=== PATIENT | female | born 1950 | race Caucasian/White ===

== ENCOUNTER → 2017-10-11 10:35 | Outpatient (CLI) | payer MEDICARE, OTHER, SELFPAY ==
[2017-10-11 12:51] LABS: Free T3 3.5 pg/mL (2.18-3.98); Thyroid Stim Hormone (TSH) 1.25 uIU/mL (0.358-3.74)
[2017-10-15 13:58] LABS: HPV Reflexed? NOT INDICATED
== END ==
PROVIDERS: Family Provider Internal Medicine; PCP Internal Medicine; Visit Provider Obstetrics & Gynecology
DX: Z12.4 Encounter for screening for malignant neoplasm of cervix (principal); Z12.72 Encounter for screening for malignant neoplasm of vagina; L65.9 Nonscarring hair loss, unspecified
CPT/HCPCS: 36415; 84439; 84443; 84481; 88175; G0145

== ENCOUNTER → 2017-11-06 12:17 | Outpatient (CLI) | payer MEDICARE, OTHER, SELFPAY ==
--- NOTE | 2017-11-06 12:21 | HPBD_ITS ---
STUDY: DUAL ENERGY X-RAY ABSORPTIOMETRY / DXA REASON FOR EXAM: Female, 67 years old. The patient is postmenopausal. Loss of height. TECHNIQUE: Bone Mineral Density (BMD) measurements of lumbar spine and bilateral hips were obtained. COMPARISON: None. FINDINGS: Lumbar Spine (L1-L4): g/cm2 (1.097) / T-score (-0.9) / Z-score (0.8) Findings are suggestive of normal bone density with a low fracture risk. Left Femur Total: g/cm2 (1.015) / T-score (0.1) / Z-score (1.4) Left Femoral Neck: g/cm2 (1.082) / T-score (0.3) / Z-score (1.9) Right Femur Total: g/cm2 (0.889) / T-score (-0.9) / Z-score (0.4) Right Femoral Neck: g/cm2 (0.997) / T-score (-0.3) / Z-score (1.3) HPBD/Dexa Bone Density Study (HP) IMPRESSION: The patient is considered normal as outlined below according to World [place] [employer] Organization (WHO) criteria with a low fracture risk. Reference Information: The T-score is the number of standard deviations above or below the standard which is normal for young adults at their peak bone mineral density. The World Health Organization (WHO) interprets the T-scores as follows: Above -1 Normal bone density Between -1 and -2.5 Osteopenia Equal to / or below -2.5 Osteoporosis As a practical clinical guideline, osteopenia may be graded as follows: Mild -1 through -1.5 Moderate -1.6 through -2.0 Severe -2.1 through -2.4 The Z-score is the number of standard deviations above or below age-matched controls. A Z-score of less than -1.5 would be considered abnormal. References: 1. NIH Osteoporosis and Related Bone Diseases http://www.osteo.org 2. International Society for Clinical Densitometry http://www.iscd.org 3. National Osteoporosis Foundation http://www.nof.org Electronically Signed: Zenon Erickson MD at 14:20 EDT Tel [phone], Service support ,
--- NOTE | 2017-11-06 12:21 | HPBI_ITS ---
MAMMOGRAPHY - BILATERAL SCREENING REASON FOR EXAM: Female, 67 years old. Routine annual screening examination. PERTINENT HISTORY: Non-contributory. TECHNIQUE: Digital bilateral breast tucker (3D mammographic acquisition) in the CC and MLO projections. 2-D mediolateral oblique (MLO) and craniocaudad (CC) views of both breasts were obtained. CAD: Full Field Digital Mammography with Computer Added Detection was performed. COMPARISON: Comparison is made with prior outside study dated March 18, 2012. FINDINGS: Breast Composition: The breasts are heterogeneously dense, which may obscure small masses. There are no dominant masses or suspicious calcifications. No other significant abnormalities are identified. There has been no significant change since the prior study. HPBI/SCREENING MAMM (CAD), BILAT IMPRESSION: Stable bilateral screening mammogram. Yearly follow-up mammogram recommended. (A) ASSESSMENT CATEGORY: BIRADS Category 1: Negative. A letter regarding these results will be sent to the patient by the facility within 30 days. Approximately 10% of breast cancers are not detected by mammography. A normal mammogram should not delay biopsy of a clinically suspicious abnormality. [id number] Electronically Signed: Zenon Erickson MD at 14:32 EDT Tel [phone], Service support ,
== END ==
PROVIDERS: Family Provider Internal Medicine; PCP Internal Medicine; Visit Provider Obstetrics & Gynecology
DX: Z12.31 Encounter for screening mammogram for malignant neoplasm of breast (principal); Z78.0 Asymptomatic menopausal state; Z13.820 Encounter for screening for osteoporosis
CPT/HCPCS: 77063; 77067; 77080

== ENCOUNTER → 2019-06-11 17:03 | Outpatient (CLI) | payer MEDICARE, OTHER, SELFPAY ==
[2017-07-22 19:45] VITALS: BMI 36.3
--- NOTE | 2019-06-11 17:27 | RAD_ITS ---
STUDY: X-RAY - CERVICAL SPINE REASON FOR EXAM: Female, 68 years old. Pain. TECHNIQUE: 3 view(s) of the cervical spine were obtained. COMPARISON: None FINDINGS: There are degenerative changes of the anterior atlantoaxial articulation. Normal odontoid process. There is mild straightening of the normal cervical lordosis. There is multi-level endplate spondylosis. There is multi-level degenerative disc disease with multilevel disc space narrowing. There is multilevel bilateral apophyseal hypertrophic changes. The soft tissue structures are unremarkable. There is no demonstrated fracture of the cervical spine. RAD/Cerv Spine 2 or 3 Views IMPRESSION: Multilevel spondylosis/degenerative disease with no acute fracture or subluxation. Mild straightening of the physiological cervical lordosis, most likely due to underlying degenerative arthritis or muscle spasm. Electronically Signed: Selma Chung MD at 2:53 EDT , Service support ,
[2019-06-11 17:44] LABS: Absolute Lymphocyte Count 1.53 X10^3/uL (0.83-4.51); Absolute Neutrophil Count 3.3 X10^3/uL (2.0-7.7); Basophil# 0.03 X10^3/uL; Basophil% 0.5 % (0-1); Eosinophil# 0.11 X10^3/uL; Hematocrit 40.9 % (37-47); Hemoglobin 13.1 g/dL (12.0-15.0); Lymphocyte # 1.53 X10^3/ul (4.0); Lymphocyte % 27.6 % (19-41); Mean Corpuscular Hgb 30.2 pg (27.0-32.0); Mean Corpuscular Volume 94.2 fL (81-99); Mean Platelet Vol. 10.6 fl (6.2-12.0); Monocyte# 0.57 X10^3/uL; Monocyte% 10.3 % (0-10); NRBC Flagged by Analyzer 0 % (0-5); Neutrophil # 3.29 X10^3/uL (2.7-7.7); Neutrophil % 59.4 % (47-70); Platelet Count 216 K/mm3 (150-450); RBC Distribution Width CV 12.9 % (11.6-14.6); RBC Distribution Width SD 44.6 fl (35.1-43.9); Red Blood Count 4.34 M/mm3 (4.2-5.4); White Blood Count 5.5 K/mm3 (4.4-11.0)
[2019-06-11 18:19] LABS: ALB/GLOB Ratio 0.9 RATIO (0.9-2.4); AST(SGOT) 18 U/L (15-37); Alanine Aminotransfer ALT/SGPT 22 U/L (13-56); Albumin, Serum 3.6 g/dL (3.2-5.0); Alkaline Phosphatase 90 U/L (45-117); Anion Gap 3 (5-15); BUN 14 mg/dL (7-18); BUN/Creat Ratio 18.9 RATIO (10-20); Chloride 106 mmol/L (98-107); Creatinine, Serum 0.74 mg/dL (0.55-1.02); EST Glomerular Filtration Rate 83 mL/min (>60); Est Glom Filt Rate - Afr Amer 100 mL/min (>60); Globulin 4.2 g/dL (2.2-4.2); Glucose 88 mg/dL (74-106); Potassium 4.2 mmol/L (3.5-5.1); Protein, Total 7.8 g/dL (6.4-8.2); Sodium Level 139 mmol/L (136-145); Thyroid Stim Hormone (TSH) 0.81 uIU/mL (0.358-3.74)
[2019-06-12 10:19] LABS: Hepatitis C Antibody Non-Reactive (Nonreactive)
== END ==
PROVIDERS: Family Provider Family Medicine Geriatric Medicine; PCP Family Medicine Geriatric Medicine; Referring Provider Family Medicine Geriatric Medicine; Visit Provider Family Medicine Geriatric Medicine
DX: M54.2 Cervicalgia (principal); R53.83 Other fatigue; Z13.89 Encounter for screening for other disorder
CPT/HCPCS: 36415; 72040; 80053; 84443; 85025; 86803

== ENCOUNTER → 2019-07-03 08:48 | Outpatient (CLI) | payer MEDICARE, OTHER, SELFPAY ==
--- NOTE | 2019-07-03 08:51 | BI_ITS ---
MAMMOGRAPHY - BILATERAL SCREENING REASON FOR EXAM: Female, 68 years old. Routine annual screening examination. PERTINENT HISTORY: Non-contributory. TECHNIQUE: Digital bilateral breast beatriz (3D mammographic acquisition) in the CC and MLO projections. 2-D mediolateral oblique (MLO) and craniocaudad (CC) views of both breasts were obtained. CAD: Full Field Digital Mammography with Computer Added Detection was performed. COMPARISON: Comparison is made with prior examination November 06, 2017. FINDINGS: Breast Composition: The breasts are heterogeneously dense, which may obscure small masses. There are no dominant masses or suspicious calcifications. No other significant abnormalities are identified. There has been no significant change since the prior study. BI/SCREEN MAMM (CAD) W/BEATRIZ BILAT IMPRESSION: Stable bilateral screening mammogram. Yearly follow-up mammogram recommended. (A) ASSESSMENT CATEGORY: BIRADS Category 1: Negative. A letter regarding these results will be sent to the patient by the facility within 30 days. Approximately 10% of breast cancers are not detected by mammography. A normal mammogram should not delay biopsy of a clinically suspicious abnormality. [id number] Electronically Signed: Zenon Erickson, at 9:54 EST , Service support ,
== END ==
PROVIDERS: Family Provider Family Medicine Geriatric Medicine; PCP Family Medicine Geriatric Medicine; Referring Provider Family Medicine Geriatric Medicine; Visit Provider Family Medicine Geriatric Medicine
DX: Z12.31 Encounter for screening mammogram for malignant neoplasm of breast (principal)
CPT/HCPCS: 77063; 77067

== ENCOUNTER → 2020-01-01 15:11 | Outpatient (CLI) | payer MEDICARE, OTHER, SELFPAY ==
[2017-07-22 19:45] VITALS: BMI 36.3
[2020-01-01 16:27] LABS: Absolute Lymphocyte Count 1.59 X10^3/uL (0.83-4.51); Absolute Neutrophil Count 2.6 X10^3/uL (2.0-7.7); Basophil# 0.04 X10^3/uL; Basophil% 0.8 % (0-1); Eosinophil# 0.13 X10^3/uL; Eosinophils% 2.6 % (0-5); Hematocrit 40.3 % (37-47); Hemoglobin 12.8 g/dL (12.0-15.0); Lymphocyte # 1.59 X10^3/ul (4.0); Lymphocyte % 31.7 % (19-41); Mean Corp Hgb Conc 31.8 g/dL (32-36); Mean Corpuscular Hgb 30.3 pg (27.0-32.0); Mean Corpuscular Volume 95.5 fL (81-99); Mean Platelet Vol. 10.7 fl (6.2-12.0); Monocyte# 0.63 X10^3/uL; Monocyte% 12.6 % (0-10); NRBC Flagged by Analyzer 0 % (0-5); Neutrophil # 2.61 X10^3/uL (2.7-7.7); Neutrophil % 52.1 % (47-70); Platelet Count 232 K/mm3 (150-450); RBC Distribution Width CV 13.2 % (11.6-14.6); RBC Distribution Width SD 46.3 fl (35.1-43.9); Red Blood Count 4.22 M/mm3 (4.2-5.4)
[2020-01-01 16:38] LABS: Vitamin D,25 Hydroxy 36.7 ng/mL
[2020-01-01 16:48] LABS: ALB/GLOB Ratio 0.9 RATIO (0.9-2.4); AST(SGOT) 22 U/L (15-37); Alanine Aminotransfer ALT/SGPT 29 U/L (13-56); Albumin, Serum 3.5 g/dL (3.2-5.0); Alkaline Phosphatase 86 U/L (45-117); Anion Gap 8 (5-15); BUN 14 mg/dL (7-18); BUN/Creat Ratio 20.1 RATIO (10-20); Calcium,Total 9.2 mg/dL (8.5-10.1); Chloride 104 mmol/L (98-107); EST Glomerular Filtration Rate 89 mL/min (>60); Est Glom Filt Rate - Afr Amer 107 mL/min (>60); Globulin 4.1 g/dL (2.2-4.2); Glucose 91 mg/dL (74-106); Potassium 3.9 mmol/L (3.5-5.1); Protein, Total 7.6 g/dL (6.4-8.2); Sodium Level 140 mmol/L (136-145); Thyroid Stim Hormone (TSH) 0.89 uIU/mL (0.358-3.74)
== END ==
PROVIDERS: PCP Family Medicine Geriatric Medicine; Visit Provider Family Medicine Geriatric Medicine
DX: E55.9 Vitamin D deficiency, unspecified (principal); R53.83 Other fatigue
CPT/HCPCS: 36415; 80053; 82306; 84443; 85025

== ENCOUNTER → 2020-09-09 07:16 | Outpatient (CLI) | payer MEDICARE, OTHER, SELFPAY ==
--- NOTE | 2020-09-09 07:19 | BI_ITS ---
MAMMOGRAPHY - BILATERAL SCREENING REASON FOR EXAM: Female, 69 years old. Routine annual screening examination. PERTINENT HISTORY: Non-contributory. TECHNIQUE: Digital bilateral breast beatriz (3D mammographic acquisition) in the CC and MLO projections. 2-D mediolateral oblique (MLO) and craniocaudad (CC) views of both breasts were obtained. CAD: Full Field Digital Mammography with Computer Added Detection was performed. COMPARISON: Comparison is made with prior study dated 07/03/2019 and 11/06/2017. FINDINGS: Breast Composition: The breasts are heterogeneously dense, which may obscure small masses. There are no dominant masses or suspicious calcifications. No other significant abnormalities are identified. There has been no significant change since the prior study. BI/SCRN MAMM (CAD)W/BEATRIZ BILAT IMPRESSION: Stable bilateral screening mammogram. Yearly follow-up mammogram recommended. (A) ASSESSMENT CATEGORY: BIRADS Category 1: Negative. A letter regarding these results will be sent to the patient by the facility within 30 days. Approximately 10% of breast cancers are not detected by mammography. A normal mammogram should not delay biopsy of a clinically suspicious abnormality. [id number] Electronically Signed: Zenon Erickson MD at 8:29 EST , Service support ,
== END ==
PROVIDERS: PCP Family Medicine Geriatric Medicine; Referring Provider Family Medicine Geriatric Medicine; Visit Provider Family Medicine Geriatric Medicine
DX: Z12.31 Encounter for screening mammogram for malignant neoplasm of breast (principal)
CPT/HCPCS: 77063; 77067

== ENCOUNTER → 2020-09-17 08:38 | Outpatient (CLI) | payer MEDICARE, OTHER, SELFPAY ==
[2017-07-22 19:45] VITALS: BMI 36.3
[2020-09-17 11:50] LABS: Absolute Lymphocyte Count 1.23 X10^3/uL (0.83-4.51); Absolute Neutrophil Count 3.9 X10^3/uL (2.0-7.7); Basophil# 0.02 X10^3/uL; Basophil% 0.3 % (0-1); Eosinophil# 0.07 X10^3/uL; Eosinophils% 1.2 % (0-5); Hematocrit 41.3 % (37-47); Hemoglobin 13.3 g/dL (12.0-15.0); Lymphocyte # 1.23 X10^3/ul (4.0); Mean Corp Hgb Conc 32.2 g/dL (32-36); Mean Corpuscular Hgb 30.4 pg (27.0-32.0); Mean Corpuscular Volume 94.3 fL (81-99); Mean Platelet Vol. 10.3 fl (6.2-12.0); Monocyte# 0.59 X10^3/uL; Monocyte% 10.1 % (0-10); NRBC Flagged by Analyzer 0 % (0-5); Neutrophil # 3.91 X10^3/uL (2.7-7.7); Neutrophil % 66.9 % (47-70); Platelet Count 239 K/mm3 (150-450); RBC Distribution Width CV 12.6 % (11.6-14.6); RBC Distribution Width SD 44.1 fl (35.1-43.9); Red Blood Count 4.38 M/mm3 (4.2-5.4); White Blood Count 5.9 K/mm3 (4.4-11.0)
[2020-09-17 12:08] LABS: Vitamin D,25 Hydroxy 32.2 ng/mL
[2020-09-17 12:15] LABS: ALB/GLOB Ratio 0.9 RATIO (0.9-2.4); AST(SGOT) 16 U/L (15-37); Alanine Aminotransfer ALT/SGPT 24 U/L (13-56); Albumin, Serum 3.6 g/dL (3.2-5.0); Alkaline Phosphatase 92 U/L (45-117); Anion Gap 5 (5-15); BUN 12 mg/dL (7-18); Chloride 107 mmol/L (98-107); Creatinine, Serum 0.67 mg/dL (0.55-1.02); EST Glomerular Filtration Rate 93 mL/min (>60); Est Glom Filt Rate - Afr Amer 113 mL/min (>60); Globulin 4.1 g/dL (2.2-4.2); Glucose 91 mg/dL (74-106); Protein, Total 7.7 g/dL (6.4-8.2); Sodium Level 141 mmol/L (136-145); Thyroid Stim Hormone (TSH) 1.02 uIU/mL (0.358-3.74)
== END ==
PROVIDERS: PCP Family Medicine Geriatric Medicine; Visit Provider Family Medicine Geriatric Medicine
DX: E55.9 Vitamin D deficiency, unspecified (principal); R53.83 Other fatigue
CPT/HCPCS: 36415; 80053; 82306; 84443; 85025

== ENCOUNTER → 2020-09-28 08:03 | Outpatient (CLI) | payer MEDICARE, OTHER, SELFPAY ==
--- NOTE | 2020-09-28 08:18 | BD_ITS ---
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 COMPARISON: Comparison is made with prior study dated 11/06/2017. FINDINGS: Lumbar Spine (L1-L4): g/cm2 (0.810) / T-score (-3.0) / Z-score (-1.3) Findings are suggestive of osteoporosis with a high fracture risk. Left Femur Total: g/cm2 (0.891) / T-score (-0.9) / Z-score (0.5) Left Femoral Neck: g/cm2 (0.980) / T-score (-0.4) / Z-score (1.3) Right Femur Total: g/cm2 (0.904) / T-score (-0.8) / Z-score (0.6) Right Femoral Neck: g/cm2 (0.992) / T-score (-0.3) / Z-score (1.3) The T-Scores on the most recent prior examination were: Lumbar Spine (L1-L4): There has been worsening of bone density since the previous examination. Left Femur Total: which represents a worsening of 12.2%. Right Femur Total: which represents an improvement of 1.7%. BD/Dexa Bone Density Study IMPRESSION: The patient is considered osteoporotic as outlined below according to World [place] [employer] Organization (WHO) criteria with a high fracture risk. There has been worsening of bone density since the previous examination. Reference Information: The T-score is the number of standard deviations above or below the standard which is normal for young adults at their peak bone mineral density. The World Health Organization (WHO) interprets the T-scores as follows: Above -1 Normal bone density Between -1 and -2.5 Osteopenia Equal to / or below -2.5 Osteoporosis As a practical clinical guideline, osteopenia may be graded as follows: Mild -1 through -1.5 Moderate -1.6 through -2.0 Severe -2.1 through -2.4 The Z-score is the number of standard deviations above or below age-matched controls. A Z-score of less than -1.5 would be considered abnormal. References: 1. NIH Osteoporosis and Related Bone Diseases www osteo.org 2. International Society for Clinical Densitometry www iscd.org 3. National Osteoporosis Foundation www nof.org Electronically Signed: Zenon Erickson MD at 12:23 EST , Service support ,
== END ==
PROVIDERS: PCP Family Medicine Geriatric Medicine; Referring Provider Family Medicine Geriatric Medicine; Visit Provider Family Medicine Geriatric Medicine
DX: Z78.0 Asymptomatic menopausal state (principal)
CPT/HCPCS: 77080

== ENCOUNTER → 2021-05-05 09:33 | Outpatient (CLI) | payer MEDICARE, OTHER, SELFPAY ==
[2021-05-05 10:43] LABS: Absolute Lymphocyte Count 1.17 X10^3/uL (0.83-4.51); Absolute Neutrophil Count 2.2 X10^3/uL (2.0-7.7); Basophil# 0.03 X10^3/uL; Basophil% 0.8 % (0-1); Eosinophil# 0.06 X10^3/uL; Eosinophils% 1.5 % (0-5); Lymphocyte # 1.17 X10^3/ul (0.83-4.51); Lymphocyte % 30.1 % (19-41); Mean Corp Hgb Conc 31.7 g/dL (32-36); Mean Corpuscular Hgb 30.3 pg (27.0-32.0); Mean Corpuscular Volume 95.6 fL (81-99); Mean Platelet Vol. 10.9 fl (6.2-12.0); Monocyte# 0.42 X10^3/uL; Monocyte% 10.8 % (0-10); NRBC Flagged by Analyzer 0 % (0-5); Neutrophil % 56.5 % (47-70); Platelet Count 214 K/mm3 (150-450); RBC Distribution Width CV 13.2 % (11.6-14.6); RBC Distribution Width SD 46.4 fl (35.1-43.9); Red Blood Count 4.29 M/mm3 (4.2-5.4); White Blood Count 3.9 K/mm3 (4.4-11.0)
[2021-05-05 11:27] LABS: ALB/GLOB Ratio 0.8 RATIO (0.9-2.4); AST(SGOT) 18 U/L (15-37); Alanine Aminotransfer ALT/SGPT 25 U/L (13-56); Albumin, Serum 3.3 g/dL (3.2-5.0); Alkaline Phosphatase 90 U/L (45-117); Anion Gap 5 (5-15); BUN 9 mg/dL (7-18); BUN/Creat Ratio 13.8 RATIO (10-20); Calcium,Total 8.8 mg/dL (8.5-10.1); Chloride 107 mmol/L (98-107); Creatinine, Serum 0.65 mg/dL (0.55-1.02); EST Glomerular Filtration Rate 95 mL/min (>60); Est Glom Filt Rate - Afr Amer 115 mL/min (>60); Globulin 4.2 g/dL (2.2-4.2); Glucose 94 mg/dL (74-106); Potassium 3.8 mmol/L (3.5-5.1); Protein, Total 7.5 g/dL (6.4-8.2); Sodium Level 139 mmol/L (136-145); Thyroid Stim Hormone (TSH) 1.24 uIU/mL (0.358-3.74)
== END ==
PROVIDERS: PCP Family Medicine Geriatric Medicine; Referring Provider Family Medicine Geriatric Medicine; Visit Provider Family Medicine Geriatric Medicine
DX: E55.9 Vitamin D deficiency, unspecified (principal); R53.83 Other fatigue
CPT/HCPCS: 36415; 80053; 82306; 84443; 85025

== ENCOUNTER → 2021-05-09 12:57 | Outpatient (CLI) | payer MEDICARE, OTHER, SELFPAY ==
--- NOTE | 2021-05-09 12:59 | US_ITS ---
INDICATION: LIPOMA EXAMINATION: Right lower extremity soft tissue ultrasound. HISTORY: palpable lump TECHNIQUE: Routine lazcano scale imaging. FINDINGS: No discrete mass or fluid collection is visualized. There is a large amount of subcutaneous adipose tissue. US/Ext Non Vasc Limited/Soft Tiss IMPRESSION: Large amount of subcutaneous adipose tissue with no discrete mass visualized. If concern for liposarcoma, recommend MRI instead. Electronically Signed: Jaret Lubin MD at 23:54 EDT Tel , Service support ,
== END ==
PROVIDERS: PCP Family Medicine Geriatric Medicine; Referring Provider Family Medicine Geriatric Medicine; Visit Provider Family Medicine Geriatric Medicine
DX: D17.9 Benign lipomatous neoplasm, unspecified (principal)
CPT/HCPCS: 76882

== ENCOUNTER → 2021-05-28 08:31 | Outpatient (CLI) | payer MEDICARE, OTHER, SELFPAY ==
--- NOTE | 2021-05-28 08:45 | MRI_ITS ---
EXAM: MR RIGHT LOWER EXTREMITY WITHOUT INTRAVENOUS CONTRAST, KNEE CLINICAL INDICATION: LIPOMA MEDIAL POSTERIOR TECHNIQUE: Multiplanar and multisequence MR images of the right knee without intravenous contrast. This report was created using [employer] report generation technology. COMPARISON: Ultrasound 05/09/2021. FINDINGS: BONES/JOINTS: This study is nondiagnostic for evaluation of knee joint due to total knee replacement. MENISCI: Not visualized. ANTERIOR CRUCIATE LIGAMENT: Not visualized. POSTERIOR CRUCIATE LIGAMENT: Not visualized. MUSCLES: Unremarkable. No demonstrated mass or cystic lesion. CARTILAGE: Not visualized. FLUID: Joint space is not visualized. OTHER SOFT TISSUES: Marked subcutaneous fat, greater medially. There is no demonstrated soft tissue mass or collection. Specifically, no evidence of lipoma or liposarcoma. MRI/Lower Ext Joint Only (Routine) IMPRESSION: 1. Nondiagnostic study of the knee joint due to knee replacement. 2. No soft tissue mass. Electronically Signed: Camille Rao MD at 23:18 EDT Tel , Service support ,
== END ==
PROVIDERS: PCP Family Medicine Geriatric Medicine; Referring Provider Family Medicine Geriatric Medicine; Visit Provider Family Medicine Geriatric Medicine
DX: D17.9 Benign lipomatous neoplasm, unspecified (principal)
CPT/HCPCS: 73721

== ENCOUNTER → 2021-12-22 | Outpatient (CLI) | payer MEDICARE, OTHER, SELFPAY ==
--- NOTE | 2021-12-22 11:54 | RAD_ITS ---
STUDY: X-RAY - RIGHT WRIST REASON FOR EXAM: Female, 71 years old. Pain and swelling following a recent fall. TECHNIQUE: 3 view(s) of the wrist were obtained. COMPARISON: None. FINDINGS: Nondisplaced comminuted fracture of the distal radial metaphysis extending to the articular surface. Normal radiocarpal articulation. Normal distal radioulnar articulation. Normal carpal bones. Normal carpal articulations. There is degenerative arthrosis of the carpometacarpal articulation of the thumb. Normal second through fifth carpometacarpal articulations. Normal visualized metacarpal bones. Soft tissue swelling. RAD/Wrist min 3 Views IMPRESSION: There is a nondisplaced comminuted fracture of the distal radial metaphysis with extension to the articular surface. Soft tissue swelling. Electronically Signed: Zenon Erickson MD at 12:30 EDT ,
[2021-12-22 12:35] LABS: Absolute Lymphocyte Count 1.11 X10^3/uL (0.83-4.51); Absolute Neutrophil Count 3.1 X10^3/uL (2.0-7.7); Basophil# 0.02 X10^3/uL; Basophil% 0.4 % (0-1); Eosinophil# 0.05 X10^3/uL; Hemoglobin 13.2 g/dL (12.0-15.0); Lymphocyte # 1.11 X10^3/ul (0.83-4.51); Lymphocyte % 22.8 % (19-41); Mean Corpuscular Hgb 30.8 pg (27.0-32.0); Mean Corpuscular Volume 93.5 fL (81-99); Monocyte# 0.57 X10^3/uL; Monocyte% 11.7 % (0-10); NRBC Flagged by Analyzer 0 % (0-5); Neutrophil % 63.9 % (47-70); Platelet Count 220 K/mm3 (150-450); RBC Distribution Width CV 12.7 % (11.6-14.6); Red Blood Count 4.28 M/mm3 (4.2-5.4); White Blood Count 4.9 K/mm3 (4.4-11.0)
[2021-12-22 13:03] LABS: ALB/GLOB Ratio 0.8 RATIO (0.9-2.4); AST(SGOT) 21 U/L (15-37); Alanine Aminotransfer ALT/SGPT 23 U/L (13-56); Albumin, Serum 3.4 g/dL (3.2-5.0); Alkaline Phosphatase 97 U/L (45-117); Anion Gap 5 (5-15); BUN 15 mg/dL (7-18); BUN/Creat Ratio 23.2 RATIO (10-20); Calcium,Total 9.1 mg/dL (8.5-10.1); Chloride 106 mmol/L (98-107); Creatinine, Serum 0.65 mg/dL (0.55-1.02); EST Glomerular Filtration Rate 96 mL/min (>60); Est Glom Filt Rate - Afr Amer 116 mL/min (>60); Globulin 4.1 g/dL (2.2-4.2); Glucose 94 mg/dL (74-106); Potassium 3.8 mmol/L (3.5-5.1); Protein, Total 7.5 g/dL (6.4-8.2); Sodium Level 138 mmol/L (136-145)
[2021-12-22 13:16] LABS: Vitamin D,25 Hydroxy 49.7 ng/mL
== END | disposition home or self-care (01) ==
PROVIDERS: PCP Family Medicine Geriatric Medicine; Referring Provider Family Medicine Geriatric Medicine; Visit Provider Family Medicine Geriatric Medicine
DX: E55.9 Vitamin D deficiency, unspecified (principal); R53.83 Other fatigue; M25.531 Pain in right wrist
CPT/HCPCS: 36415; 73110; 80053; 82306; 84443; 85025

== ENCOUNTER → 2024-02-05 | Outpatient (CLI) | payer MEDICARE, OTHER, SELFPAY ==
[2024-02-05 13:01] LABS: Absolute Lymphocyte Count 1.38 X10^3/uL (0.83-4.51); Absolute Neutrophil Count 2.5 X10^3/uL (2.0-7.7); Basophil# 0.03 X10^3/uL; Basophil% 0.7 % (0-1); Eosinophil# 0.05 X10^3/uL; Eosinophils% 1.1 % (0-5); Hematocrit 39.2 % (37-47); Hemoglobin 12.5 g/dL (12.0-15.0); Lymphocyte # 1.38 X10^3/ul (0.83-4.51); Lymphocyte % 30.1 % (19-41); Mean Corp Hgb Conc 31.9 g/dL (32-36); Mean Corpuscular Volume 94.2 fL (81-99); Mean Platelet Vol. 11.3 fl (6.2-12.0); Monocyte# 0.58 X10^3/uL; Monocyte% 12.7 % (0-10); NRBC Flagged by Analyzer 0 % (0-5); Neutrophil # 2.53 X10^3/uL (2.7-7.7); Neutrophil % 55.2 % (47-70); Platelet Count 193 K/mm3 (150-450); RBC Distribution Width CV 12.7 % (11.6-14.6); RBC Distribution Width SD 43.7 fl (35.1-43.9); Red Blood Count 4.16 M/mm3 (4.2-5.4); White Blood Count 4.6 K/mm3 (4.4-11.0)
[2024-02-05 13:10] LABS: Vitamin D,25 Hydroxy 57.2 ng/mL
[2024-02-05 13:29] LABS: ALB/GLOB Ratio 0.8 RATIO (0.9-2.4); AST(SGOT) 19 U/L (15-37); Alanine Aminotransfer ALT/SGPT 18 U/L (13-56); Albumin, Serum 3.4 g/dL (3.2-5.0); Alkaline Phosphatase 93 U/L (45-117); Anion Gap 3 (5-15); BUN 17 mg/dL (7-18); BUN/Creat Ratio 25.6 RATIO (10-20); Calcium,Total 9.2 mg/dL (8.5-10.1); Chloride 105 mmol/L (98-107); Creatinine, Serum 0.66 mg/dL (0.55-1.02); EST Glomerular Filtration Rate 93 mL/min (>60); Est Glom Filt Rate - Afr Amer 112 mL/min (>60); Glucose 96 mg/dL (74-106); Potassium 3.8 mmol/L (3.5-5.1); Protein, Total 7.4 g/dL (6.4-8.2); Sodium Level 137 mmol/L (136-145); Thyroid Stim Hormone (TSH) 1.03 uIU/mL (0.358-3.74)
== END | disposition home or self-care (01) ==
LOC: LAB 12:05
PROVIDERS: PCP Family Medicine Geriatric Medicine; Referring Provider Family Medicine Geriatric Medicine; Visit Provider Family Medicine Geriatric Medicine
DX: R53.83 Other fatigue (principal); E55.9 Vitamin D deficiency, unspecified
CPT/HCPCS: 36415; 80053; 82306; 84443; 85025

== ENCOUNTER 2024-02-11 16:16 | Outpatient (CLI) | payer MEDICARE, OTHER, SELFPAY | END 2024-02-11 23:59 | disposition home or self-care (01) | LOC: LAB 16:25 | PROVIDERS: PCP Family Medicine Geriatric Medicine; Referring Provider Family Medicine Geriatric Medicine; Visit Provider Family Medicine Geriatric Medicine | DX: A69.20 Lyme disease, unspecified (principal); W57.XXXA Bitten or stung by nonvenomous insect and other nonvenomous arthropods, initial encounter | CPT/HCPCS: 36415; 86617 ==

== ENCOUNTER → 2024-02-26 | Outpatient (CLI) | payer MEDICARE, OTHER, SELFPAY ==
--- NOTE | 2024-02-26 12:47 | CT_ITS ---
STUDY: CT RIGHT KNEE WITHOUT CONTRAST REASON FOR EXAM: Female, 73 years old. Lipoma of right knee. History of total knee arthroplasty. RADIATION DOSAGE (If Supplied By Facility): CTDIvol = ( 15.35 ) mGy, DLP = ( 550.71 ) mGycm TECHNIQUE: Transaxial CT imaging of the knee was performed. Coronal and sagittal images were reformatted. Metallic artifact from the total knee arthroplasty obscures much of the detail of the knee. Individualized dose optimization techniques were used for this CT. COMPARISON: Ultrasound of the lower extremities dated May 09, 2021 FINDINGS: Marked metallic artifact from the 3 component total knee arthroplasty. Anatomic alignment of the total knee arthroplasty with no apparent complications. Generalized muscle atrophy. Normal subcutaneous soft tissue adipose tissue. Superficial varicosities No lipoma identified . CT/Extremity Lower without Contra IMPRESSION: Uncomplicated total knee arthroplasty with mild generalized muscle atrophy and superficial varicosities. No focal lipoma identified. Electronically Signed: Mohinder Sierra MD at 9:47 EDT ,
== END | disposition home or self-care (01) ==
LOC: CT 12:47
PROVIDERS: PCP Family Medicine Geriatric Medicine; Referring Provider Plastic Surgery; Visit Provider Plastic Surgery
DX: D48.19 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 other soft tissue (principal)
CPT/HCPCS: 73700

== ENCOUNTER → 2024-08-21 | Outpatient (CLI) | payer MEDICARE, OTHER, SELFPAY ==
[2024-08-21 11:21] LABS: Absolute Lymphocyte Count 1.33 X10^3/uL (0.83-4.51); Absolute Neutrophil Count 4.4 X10^3/uL (2.0-7.7); Basophil# 0.04 X10^3/uL; Basophil% 0.6 % (0-1); Eosinophil# 0.09 X10^3/uL; Eosinophils% 1.4 % (0-5); Hemoglobin 13.5 g/dL (12.0-15.0); Lymphocyte # 1.33 X10^3/ul (0.83-4.51); Lymphocyte % 20.2 % (19-41); Mean Corp Hgb Conc 32.1 g/dL (32-36); Mean Corpuscular Hgb 30.7 pg (27.0-32.0); Mean Corpuscular Volume 95.5 fL (81-99); Mean Platelet Vol. 10.2 fl (6.2-12.0); Monocyte# 0.69 X10^3/uL; Monocyte% 10.5 % (0-10); NRBC Flagged by Analyzer 0 % (0-5); Neutrophil # 4.39 X10^3/uL (2.7-7.7); Neutrophil % 66.7 % (47-70); Platelet Count 285 K/mm3 (150-450); RBC Distribution Width CV 12.7 % (11.6-14.6); RBC Distribution Width SD 44.2 fl (35.1-43.9); White Blood Count 6.6 K/mm3 (4.4-11.0)
[2024-08-21 11:54] LABS: ALB/GLOB Ratio 0.7 RATIO (0.9-2.4); AST(SGOT) 19 U/L (15-37); Alanine Aminotransfer ALT/SGPT 21 U/L (13-56); Alkaline Phosphatase 124 U/L (45-117); Anion Gap 4 (5-15); BUN 10 mg/dL (7-18); BUN/Creat Ratio 12.8 RATIO (10-20); Calcium,Total 8.9 mg/dL (8.5-10.1); Chloride 106 mmol/L (98-107); Creatinine, Serum 0.78 mg/dL (0.55-1.02); EST Glomerular Filtration Rate 77 mL/min (>60); Est Glom Filt Rate - Afr Amer 93 mL/min (>60); Globulin 4.6 g/dL (2.2-4.2); Glucose 95 mg/dL (74-106); Potassium 3.9 mmol/L (3.5-5.1); Protein, Total 7.6 g/dL (6.4-8.2); Sodium Level 141 mmol/L (136-145)
[2024-08-21 14:38] LABS: Vitamin D,25 Hydroxy 59.2 ng/mL
== END | disposition home or self-care (01) ==
LOC: POLAB3 11:10
PROVIDERS: PCP Family Medicine Geriatric Medicine; Visit Provider Family Medicine Geriatric Medicine
DX: E55.9 Vitamin D deficiency, unspecified (principal); R53.83 Other fatigue
CPT/HCPCS: 36415; 80053; 82306; 84443; 85025

== ENCOUNTER → 2025-02-05 | Outpatient (CLI) | payer MEDICARE, OTHER, SELFPAY ==
--- OUTSIDE RECORDS SUMMARY | 2025-02-05 11:35 | XMS RPT_ITS | CCD ---
Author Organization [facility] Care Team Providers Care Mangle Tender Cloth Name Role Phone EVELIA, DR KHADIJAH Washburn Attending Unavaila ble EVELIA, DR KHADIJAH Washburn Primary Care Unavaila ble EVELIA, DR KHADIJAH Washburn Admitting Unavaila ble Prosper, Vivek Chi Primary Care Unavailable Prosper, Vivek Chi Attending Unavailable Prosper, Vivek Chi Referring Unavailable Prosper, Vivek Chi Primary Care Unavailable Prosper, Vivek Chi Attending Unavailable Prosper, Vivek Chi Referring Unavailable Ghazoul, Edita Attending Unavailable Ghazoul, Edita Referring Unavailable Prosper, Vivek Chi Primary Care Unavailable Prosper, Vivek Chi Attending Unavailable Prosper, Vivek Chi Primary Care Unavailable Fuentes Tova Attending Unavailable Prosper, Vivek Chi Referring Unavailable Prosper, Vivek Chi Primary Care Unavailable Prosper, Vivek Chi Primary Care Unavailable Ghazoul, Edita Attending Unavailable Prosper, Vivek Chi Referring Unavailable Ghazoul, Edita Attending Unavailable Prosper, Vivek Chi Referring Unavailable Prosper, Vivek Chi Primary Care Unavailable Problems Active Problems Problem Classification Problem Date Documented Da te Episodic/Chronic Nutritional deficiencies (1 source) Vitamin D deficiency, unspecified; Translations: [Vitamin D deficiency, unspecified] Onset: 09-14-2024 Chronic Unclassified (1 source) 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 other soft tissue; Translations: [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 other soft tissue] Onset: 03-01-2024 Past or Other Problems Problem Classification Problem Date Documented Da te Episodic/Chronic Malaise and fatigue (1 source) Other fatigue; Translations: [Other fatigue] Onset: 02-11-2024 Episodic Other connective tissue disease (1 source) Other specified soft tissue disorders; Translations: [Other specified soft tissue disorders] Onset: 04-28-2024 Episodic Other infections; including parasitic (1 source) Lyme disease, unspecified; Translations: [Lyme disease, unspecified] Onset: 02-14-2024 Episodic Varicose veins of lower extremity (1 source) Varicose veins of right lower extremity with other complications; Translations: [Varicose veins of right lower extremity with other complications] Onset: 05-21-2024 Episodic Results Test Name Value Interpretation Reference Range Facil ity CBC W/Diff, Automatedon 01-0 Absolute Lymph 1.33 X10 3/uL Normal 0.83-4.51 [facility] Comment on above: Performed By: #### L 506.1000, L501.9520, L100.0100, L500.4050 #### [facility] [address] [place], [address] Absolute Neut 4.4 X10 3/uL Normal 2.0-7.7 [facility] Comment on above: Performed By: #### L 506.1000, L501.9520, L100.0100, L500.4050 #### [facility] [address] [place], [address] Basophils/100 WBC (Bld) 0.6 % Normal 0-1 [facility] Comment on above: Performed By: #### L 506.1000, L501.9520, L100.0100, L500.4050 #### [facility] [address] [place], [address] Eosinophils/100 WBC (Bld) 1.4 % Normal 0-5 [facility] Comment on above: Performed By: #### L 506.1000, L501.9520, L100.0100, L500.4050 #### [facility] [address] [place], [address] Erythrocyte distribution width (RBC) [Ratio] 12.7 % Normal 11.6-14.6 [facility] Comment on above: Performed By: #### L 506.1000, L501.9520, L100.0100, L500.4050 #### [facility] [address] [place], [address] Hematocrit (Bld) [Volume fraction] 42.0 % Normal 37-47 [facility] Comment on above: Performed By: #### L 506.1000, L501.9520, L100.0100, L500.4050 #### [facility] [address] [place], [address] Hemoglobin (Bld) [Mass/Vol] 13.5 g/dL Normal 12.0-15.0 [facility] Comment on above: Performed By: #### L 506.1000, L501.9520, L100.0100, L500.4050 #### [facility] [address] [place], [address] IG% 0.600 Normal 0.0-0.9 [facility] Comment on above: Result Comment: IG% - Immature Granulocytes (promyelocytes, myelocytes and metamyelocytes) > 1% indicates that a LEFT SHIFT is Present. Performed By: #### L 506.1000, L501.9520, L100.0100, L500.4050 #### [facility] [address] [place], [address] Lymphocytes/100 WBC (Bld) 20.2 % Normal 19-41 [facility] Comment on above: Performed By: #### L 506.1000, L501.9520, L100.0100, L500.4050 #### [facility] [address] [place], [address] MCH (RBC) [Entitic mass] 30.7 pg Normal 27.0-32.0 [facility] Comment on above: Performed By: #### L 506.1000, L501.9520, L100.0100, L500.4050 #### [facility] [address] [place], [address] MCHC (RBC) [Mass/Vol] 32.1 g/dL Normal 32-36 [facility] Comment on above: Performed By: #### L 506.1000, L501.9520, L100.0100, L500.4050 #### [facility] [address] [place], [address] MCV (RBC) [Entitic vol] 95.5 fL Normal 81-99 [facility] Comment on above: Performed By: #### L 506.1000, L501.9520, L100.0100, L500.4050 #### [facility] [address] [place], [address] Monocytes/100 WBC (Bld) 10.5 % High 0-10 [facility] Comment on above: Performed By: #### L 506.1000, L501.9520, L100.0100, L500.4050 #### [facility] [address] [place], [address] Neutrophils/100 WBC (Bld) 66.7 % Normal 47-70 [facility] Comment on above: Performed By: #### L 506.1000, L501.9520, L100.0100, L500.4050 #### [facility] [address] [place], [address] Nucleated RBC (Bld) [#/Vol] 0 10*3/uL Normal 0-5 [facility] Comment on above: Performed By: #### L 506.1000, L501.9520, L100.0100, L500.4050 #### [facility] [address] [place], [address] Platelet mean volume (Bld) [Entitic vol] 10.2 fL Normal 6.2-12.0 [facility] Comment on above: Performed By: #### L 506.1000, L501.9520, L100.0100, L500.4050 #### [facility] [address] [place], [address] Platelets (Bld) [#/Vol] 285 10*3/uL Normal 150-450 [facility] Comment on above: Performed By: #### L 506.1000, L501.9520, L100.0100, L500.4050 #### [facility] [address] [place], [address] RBC (Bld) [#/Vol] 4.40 10*6/uL Normal 4.2-5.4 [facility] Comment on above: Performed By: #### L 506.1000, L501.9520, L100.0100, L500.4050 #### [facility] [address] [place], [address] RDW SD 44.2 fl High 35.1-43.9 [facility] Comment on above: Performed By: #### L 506.1000, L501.9520, L100.0100, L500.4050 #### [facility] [address] [place], [address] WBC (Bld) [#/Vol] 6.6 10*3/uL Normal 4.4-11.[address] [facility] Comment on above: Performed By: #### L 506.1000, L501.9520, L100.0100, L500.4050 #### [facility] [address] [place], [address] Comprehensive Metabolic Prof [facility] 08-21-2024 Albumin [Mass/Vol] 3.0 g/dL Low 3.2-5.[address] [facility] Comment on above: Performed By: #### L 506.1000, L501.9520, L100.0100, L500.4050 #### [facility] [address] [place], [address] Albumin/Globulin [Mass ratio] 0.7 {ratio} Low 0.9-2.4 [facility] Comment on above: Performed By: #### L 506.1000, L501.9520, L100.0100, L500.4050 #### [facility] [address] [place], [address] ALK P 124 U/L High 45-117 [facility] Comment on above: Performed By: #### L 506.1000, L501.9520, L100.0100, L500.4050 #### [facility] [address] [place], [address] ALT [Catalytic activity/Vol] 21 U/L Normal 13-56 [facility] Comment on above: Performed By: #### L 506.1000, L501.9520, L100.0100, L500.4050 #### [facility] [address] [place], [address] AST [Catalytic activity/Vol] 19 U/L Normal 15-37 [facility] Comment on above: Performed By: #### L 506.1000, L501.9520, L100.0100, L500.4050 #### [facility] [address] [place], [address] Bilirubin [Mass/Vol] 0.30 mg/dL Normal 0.20-1.00 [facility] Comment on above: Result Comment: For patients on eltrombopag therapy, use of Dimension [place] TBIL is not recommended. Performed By: #### L 506.1000, L501.9520, L100.0100, L500.4050 #### [facility] [address] [place], [address] BUN/CRE 12.8 RATIO Normal 10-20 [facility] Comment on above: Performed By: #### L 506.1000, L501.9520, L100.0100, L500.4050 #### [facility] [address] [place], [address] CA,Total 8.9 mg/dL Normal 8.5-10.1 [facility] Comment on above: Performed By: #### L 506.1000, L501.9520, L100.0100, L500.4050 #### [facility] [address] [place], [address] Chloride [Moles/Vol] 106 mmol/L Normal 98-107 [facility] Comment on above: Performed By: #### L 506.1000, L501.9520, L100.0100, L500.4050 #### [facility] [address] [place], [address] CO2 [Moles/Vol] 31.0 mmol/L Normal 21.0-32.0 [facility] Comment on above: Performed By: #### L 506.1000, L501.9520, L100.0100, L500.4050 #### [facility] [address] [place], [address] Creatinine [Mass/Vol] 0.78 mg/dL Normal 0.55-1.02 [facility] Comment on above: Result Comment: The validity of the calculated GFR GFRAA in patients over 70 years has not been determined. Clinical correlation is essential. Performed By: #### L 506.1000, L501.9520, L100.0100, L500.4050 #### [facility] [address] [place], [address] EST GFR - AA 93 mL/min Normal >60 [facility] Comment on above: Result Comment: Afri can Bangl[place]hi GFR Calc Performed By: #### L 506.1000, L501.9520, L100.0100, L500.4050 #### [facility] [address] [place], [address] GAP 4 Low 5-15 [facility] Comment on above: Performed By: #### L 506.1000, L501.9520, L100.0100, L500.4050 #### [facility] [address] [place], [address] GFR/1.73 sq M.predicted among non-blacks MDRD (S/P/Bld) [Vol rate/Area] 77 mL/min/{1.73_m2} Normal >60 [facility] Comment on above: Result Comment: Non- GFR Calc Performed By: #### L 506.1000, L501.9520, L100.0100, L500.4050 #### [facility] [address] [place], [address] Globulin (S) [Mass/Vol] 4.6 g/dL High 2.2-4.2 [facility] Comment on above: Performed By: #### L 506.1000, L501.9520, L100.0100, L500.4050 #### [facility] [address] [place], [address] Glucose [Mass/Vol] 95 mg/dL Normal 74-[address] [facility] Comment on above: Performed By: #### L 506.1000, L501.9520, L100.0100, L500.4050 #### [facility] [address] [place], [address] Potassium [Moles/Vol] 3.9 mmol/L Normal 3.5-5.1 [facility] Comment on above: Performed By: #### L 506.1000, L501.9520, L100.0100, L500.4050 #### [facility] [address] [place], [address] Sodium [Moles/Vol] 141 mmol/L Normal 136-[address] [facility] Comment on above: Performed By: #### L 506.1000, L501.9520, L100.0100, L500.4050 #### [facility] [address] [place], [address] T PROT 7.6 g/dL Normal 6.4-8.2 [facility] Comment on above: Performed By: #### L 506.1000, L501.9520, L100.0100, L500.4050 #### [facility] [address] [place], [address] Urea nitrogen [Mass/Vol] 10 mg/dL Normal 7-18 [facility] Comment on above: Performed By: #### L 506.1000, L501.9520, L100.0100, L500.4050 #### [facility] [address] [place], [address] Thyroid Stim Hormone (TSH)on 08-21-2024 TSH 1.340 uIU/mL Normal 0.358-3.740 [facility] Comment on above: Performed By: #### L 506.1000, L501.9520, L100.0100, L500.4050 #### [facility] [address] [place], [address] Vitamin D,25 Hydroxyon 08-21 Vitamin D 25-OH 59.2 ng/mL Normal [facility] Comment on above: Result Comment: Ciera min D 25(OH) Status Range Deficiency <20 ng/mL (50nmol/L) Insufficiency 20 - 30 ng/mL (50 - 75 nmol/L) Sufficiency 30 - 100 ng/mL (75 - 250 nmol/L) Toxicity >100 ng/mL (>250 nmol/L) Performed By: #### L 506.1000, L501.9520, L100.0100, L500.4050 ####[facility] [address] [place], [address] /Himanshu 04-15-2024 /PAPI [facility] [address] [place], [place] [address] OFFICE VISIT Date of Service: 04/15/24 MR#: [id number] Acct: [id number] Name: RADHA QUINTANILLA Rep #: [id number] : 1950 Provider: ARIAS Pemberton Age/Sex: 73/F Location: [facility] [place] Status: Signed Intake Vital Signs 03/05/24 10:06 04/15/24 09:08 Height 5 ft 6 in Weight: 207 lb 8 oz 204 lb BMI 33.5 BP 142/66 H 152/84 H Blood Pressure Location Rt brachial Rt brachial Position Sitting Sitting Respiration 16 16 Pulse 72 58 L Pulse Source Monitor Temp 98.4 F 98.2 F Temp Source Temporal Temporal Pulse Oximetry (%) 96 99 Oxygen Delivery Method room air room air Intake Visit Reasons: CONSULT-VARICOSE VEINS Chief Complaint: establishing care Is patient in pain?: No Allergies No Known Allergies Allergy (Verified 04/15/24 09:11) Medications ???Medication ???Instructions ???Recorded ???Confirmed ???Type biotin 5,000 mcg disintegrating 5,000 mcg PO DAILY 07/10/17 04/15/24 History tablet aspirin 81 mg tablet,delayed 81 mg PO DAILY 02/13/24 04/15/24 History release (Adult Low Dose Aspirin) Is last menstrual period known: No Post menopausal: Yes Patient : No Have you fallen in the past year?: No PFSH Medical History History of fracture of clavicle History of wrist fracture Surgical History History of right knee joint replacement Hx of gastric bypass Family History Mother Arthritis Diabetes Hypertension Father Colon cancer Heart disease Sister Arthritis Social History Smoking Status: Never smoker alcohol intake: current details: social substance use type: does not use additional social history: pt denies vaping, denies marijuana use, denies edibles, takes aspirin and ibuprofen daily. HPI HPI HPI: RADHA QUINTANILLA, is a 73 F who presents to the office today for evaluation of right lower extremity symptomatic varicose veins as referred from plastic surgery Dr. Bauman. She reports that she has right lower extremity varicose veins particularly around her ankle and her right knee which have intermittent burning and throbbing pain. She reports this pain can happen anytime but does tend to be worse with prolonged activity/standing. She also notes intermittent increased edema through her right lower extremity. She does have an area of focal swelling on her right medial knee for which she was evaluated by plastic surgery. Initially this was thought to be possibly a lipoma but this was ruled out with imaging which determined just generalized adipose tissue so no surgical intervention was felt to be of benefit with plastic surgery. She denies any history of VTE. She does not have any wounds. She stays fairly active around her property. She does elevate her legs when resting. She did try compression for about a week consistently and did not find significant benefit. She has not had any venous imaging. ROS General General: No weight change, appetite, fatigue, colon cancer, breast cancer or weakness HEENT HEENT: No difficulty swallowing, eye injury, eye surgery, swollen glands or hoarseness Endo Endocrine: No thyroid disease, diabetes mellitus, thyroid cancer, Hair loss, heat intolerance or cold intolerance Skin Skin: Yes rash; No changing moles Musc Musculoskeletal: No back problems, arthritis, rheumatoid arthritis, gout or joint pain Cardio Cardiovascular: No murmur, pacemaker, heart disease, atrial fibrillation, high blood pressure, heart attack, heart stent, palpitations, shortness of breat with exertion or chest pain Psych Psychiatric: No depression, anxiety or hearing voices Resp Respiratory: No shortness of breath, No sleep apnea, No cough, No COPD, No asthma, No emphysema and No wheezing Gastro Gastrointestinal: No abdominal pain, No nausea or vomiting, No diarrhea, Yes constipation, No blood in stool, No acid reflux, No hemorrhoids, No ulcers, No gallbladder problem and No black,tarry stools [place] Hematologic: No blood thinners, No blood disorders, No bleeding, No anemia and No blood clots Neuro Neurologic: No system reviewed and no additional complaints, except as documented, No as per HPI, No abnormal gait, No abnormal hearing, No abnormal movements, No abnormal speech, No behavioral changes, Yes burning sensations, No confusion, No convulsions, No disequilibrium, No dizziness, No localized weakness, No frequent falls, No headache(s), No lack of coordination, No loss of vision, No memory loss, Yes numbness, No other visual disturbances, No radicular pain, No restless legs, No senso (more content not included)... Normal [facility] Plastic Surgery Visit Report on 03-05-2024 Plastic Surgery Visit Report [facility]astic Reconstructive Surgery [address], [address] [place], [place] [id number] OFFICE VISIT Date of Service: 03/05/24 MR#: [id number] Acct: [id number] Name: RADHA QUINTANILLA Rep #: [id number] : 1950 Provider: Dr. Edita reyes MD Age/Sex: 73/F Location: [facility] [place] Status: Signed Intake Vital Signs 02/13/24 09:57 03/05/24 10:06 Height 5 ft 6 in 5 ft 6 in Weight: 209 lb 6 oz 207 lb 8 oz BMI 33.7 33.5 BP 124/74 H 142/66 H Blood Pressure Location Lt brachial Rt brachial Position Sitting Sitting Respiration 16 16 Pulse 57 L 72 Temp 97.6 F L 98.4 F Temp Source Temporal Temporal Pulse Oximetry (%) 96 96 Oxygen Delivery Method room air room air Intake Visit Reasons: FOLLOW UP CT RESULTS Chief Complaint: right knee lipoma-follow up ct results Is patient in pain?: No Allergies No Known Allergies Allergy (Verified 03/05/24 10:07) Medications ???Medication ???Instructions ???Recorded ???Confirmed ???Type biotin 5,000 mcg disintegrating 5,000 mcg PO DAILY 07/10/17 03/05/24 History tablet multivitamin-ferrous 1 ea PO DAILY 07/10/17 03/05/24 History fumarate-folic acid 18 mg-400 mcg tablet (Complete Women) ibuprofen 600 mg tablet 600 mg PO PRN PRN Pain 07/22/17 03/05/24 History turmeric 400 mg capsule mg PO 12/23/21 03/05/24 History aspirin 81 mg tablet,delayed 81 mg PO DAILY 02/13/24 03/05/24 History release (Adult Low Dose Aspirin) Have you fallen in the past year?: No Nurse's Note: pt here for ct results Subjective Details: Radha comes in for recheck of the right medial leg area where she notices some swelling as compared to the left side. She has recently undergone a CT scan for evaluation. Objective Details: Patient is noted to have some asymmetry with slightly more fullness of the adipose tissue of the right medial knee area as compared to the left. She is also noted to have more varicosities of the right leg as compared to the left with visible serpiginous veins on the surface. She has occasionally been wearing a sleeve as directed and notes some decrease in the swelling related to this. Review of the CT scan (which I reviewed the films with her) demonstrate normal subcutaneous adipose tissue, superficial varicosities, no lipoma noted. I reviewed with the patient that the swelling in the leg could be related to the increased varicose veins and associated edema on the right side as compared to the left. I reviewed that surgical intervention would likely exacerbate the swelling and create contour irregularities as compared to the left side in light of no apparent mass. I advocated for -continued compression to help reduce the swelling and relieve the pressure created by the varicose vein dilation. -Evaluation by vascular surgery to determine if she is a candidate for surgical intervention regarding her varicose veins. -Weight management to help reduce the adipose tissue Coding Level of Care Code Off vis,est,level 4 Diagnoses Varicose veins of right leg with edema I83.891 Swelling of right lower extremity M79.89 [facility] Medical History (Updated 03/05/24 @ 10:[address] Edita Bauman MD) History of fracture of clavicle History of wrist fracture Surgical History (Updated 02/13/24 @ 09:48 by Leesa Lindo) History of right knee joint replacement Hx of gastric bypass Family History (Updated 02/13/24 @ 09:50 by Leesa Lindo) Mother Arthritis Diabetes Hypertension Father Colon cancer Heart disease Sister Arthritis Social History (Updated 02/13/24 @ 09:56 by Leesa Lindo) Smoking Status: Never smoker alcohol intake: current details: social substance use type: does not use additional social history: pt denies vaping, denies marijuana use, denies edibles, takes aspirin and ibuprofen daily. Assessment and Plan (No Qualifiers) Assessment and Plan (1) Varicose veins of right leg with edema: Status: Acute (2) Swelling of right lower extremity: Status: Acute Plan Details Additional Comments: I will initiate a referral to vascular surgery for evaluation. I will see her back as needed. 03/06/24 0737 Date Edita Bauman MD Cosigner Signature: Date (if applicable) CC: Normal [facility] Extremity Lower without Cont raon 02-26-2024 Extremity Lower without Contra [facility] [address] [place], [place] [address] Extremity Lower without Contra MR#: [id number] Acct: [id number] Name: RADHA QUINTANILLA LEWIS Rep #: [id number] : 1950 F 73 From: Mohinder Sierra MD PCP: Dr. Vivek Cheng MD Status: REG CLI Study: Extremity Lower without Contra Date of Exam: 0 02/26/24 Exam# [id number] Ordering Dr: Edita Bauman MD [id number] STUDY: CT RIGHT KNEE WITHOUT CONTRAST REASON FOR EXAM: Female, 73 years old. Lipoma of right knee. History of total knee arthroplasty. RADIATION DOSAGE (If Supplied By Facility): CTDIvol = ( 15.35 ) mGy, DLP = ( 550.71 ) mGycm TECHNIQUE: Transaxial CT imaging of the knee was performed. Coronal and sagittal images were reformatted. Metallic artifact from the total knee arthroplasty obscures much of the detail of the knee. Individualized dose optimization techniques were used for this CT. COMPARISON: Ultrasound of the lower extremities dated May 09, 2021 FINDINGS: Marked metallic artifact from the 3 component total knee arthroplasty. Anatomic alignment of the total knee arthroplasty with no apparent complications. Generalized muscle atrophy. Normal subcutaneous soft tissue adipose tissue. Superficial varicosities No lipoma identified . CT/Extremity Lower without Contra IMPRESSION: Uncomplicated total knee arthroplasty with mild generalized muscle atrophy and superficial varicosities. No focal lipoma identified. Electronically Signed: Mohinder Sierra MD at 9:47 EDT , CC: Dr. Vivek Cheng MD; Dr. Edita Bauman MD Felt Dyeing Machine Tender: Signed Normal [facility] Lyme Antibodies,W [place] LYME IgG INTERP Negative Normal . [facility] Comment on above: Result Comment: Posi tive: 5 of the following Borrelia-specific bands: 18,23,28,30,39,41,45,58, 66, and 93. Negative: No bands or banding patterns which do not meet positive criteria. Performed By: #### L 7000.5800 ####[facility] [id number] [place], [place], [address] LYME IgM INTERP Negative Normal . [facility] Comment on above: Result Comment: Note : An equivocal or positive EIA result followed by a negative Line Blot result is considered NEGATIVE. An equivocal or positive EIA result followed by a positive Line Blot is considered POSITIVE by the CDC. Positive: 2 of the following bands: 23,39 or 41 Negative: No bands or banding patterns which do not meet positive criteria. Criteria for positivity are those recommended by CDC/ASTPHLD. p23=Osp C, k50=ccwgimuvt Note: Sera from individuals with the following may cross react in the Lyme Line Blot assays: other spirochetal diseases (periodontal disease, leptospirosis, relapsing fever, yaws, and pinta); connective autoimmune (Rheumatoid Arthritis and Systemic Lupus Erythematosus and also individuals with Antinuclear Antibody); other infections ([place] Spotted Fever; Becky-Quintanilla Virus, and Cytomegalovirus). Please Note: Lyme immunoblot alone is not recommended for the diagnosis of Lyme disease. Current guidelines recommend the use of a two-tiered approach to Lyme serology testing to improve the sensitivity and specificity of testing. [facility] offers test code 414779 Lyme Disease Serology with Reflex to aid in the diagnosis of Lyme Disease. Performed at: [address] [place], [place] [id number] [employer] Designer: Binu Sandoval MD, Phone: [phone] Performed By: #### L ####[facility] [address] [place], [address] P18 Ab Absent Normal . [facility] Comment on above: Performed By: #### L 6999.5799 ####[facility] [address] [place], [address] P23 Ab Absent Normal . [facility] Comment on above: Performed By: #### L ####[facility] [address] [place], [address] P28 Ab Absent Normal . [facility] Comment on above: Performed By: #### L ####[facility] [address] [place], [address] P30 Ab Absent Normal . [facility] Comment on above: Performed By: #### L ####[facility] [address] [place], [address] P39 Ab Absent Normal . [facility] Comment on above: Performed By: #### L ####[facility] [address] [place], [address] P41 Ab Present Abnormal . [facility] Comment on above: Performed By: #### L 0 ####[facility] [address] [place], [address] P41 Ab Absent Normal . [facility] Comment on above: Performed By: #### L ####[facility] [address] [place], [address] P45 Ab Absent Normal . [facility] Comment on above: Performed By: #### L 0 ####[facility] [address] [place], [address] P58 Ab Present Abnormal . [facility] Comment on above: Performed By: #### L 7000.5800 ####[facility] [address] [place], [address] P66 Ab Absent Normal . [facility] Comment on above: Performed By: #### L 7000.5800 ####[facility] [address] [place], [address] P93 Ab Present Abnormal . [facility] Comment on above: Performed By: #### L 7000.5800 ####[facility] [address] [place], [place], [address] Plastic Surgery Visit Report on 02-13-2024 Plastic Surgery Visit Report [facility] Plastic Reconstructive Surgery [address] [place] [address] OFFICE VISIT Date of Service: 02/13/24 MR#: [id number] Acct: [id number] Name: RADHA QUINTANILLA LEWIS Rep #: [id number] : 1950 Provider: Dr. Edita reyes MD Age/Sex: 73/F Location: [facility] Status: Signed Intake Vital Signs 09/28/20 08:31 02/13/24 09:57 Height 5 ft 4.5 in 5 ft 6 in Weight: 209 lb 6 oz BMI 33.7 BP 124/74 H Blood Pressure Location Lt brachial Position Sitting Respiration 16 Pulse 57 L Temp 97.6 F L Temp Source Temporal Pulse Oximetry (%) 96 Oxygen Delivery Method room air Intake Visit Reasons: right knee lipoma Chief Complaint: right knee lipoma Is patient in pain?: No Allergies No Known Allergies Allergy (Verified 02/13/24 09:59) Medications ???Medication ???Instructions ???Recorded ???Confirmed ???Type biotin 5,000 mcg disintegrating 5,000 mcg PO DAILY 07/10/17 02/13/24 History tablet multivitamin-ferrous 1 ea PO DAILY 07/10/17 02/13/24 History fumarate-folic acid 18 mg-400 mcg tablet (Complete Women) ibuprofen 600 mg tablet 600 mg PO PRN PRN Pain 07/22/17 02/13/24 History turmeric 400 mg capsule mg PO 12/23/21 02/13/24 History aspirin 81 mg tablet,delayed 81 mg PO DAILY 02/13/24 02/13/24 History release (Adult Low Dose Aspirin) Have you fallen in the past year?: No Nurse's Note: pt here for right leg lipoma [facility] Medical History (Updated 02/13/24 @ 10:[address] Edita Bauman MD) History of fracture of clavicle History of wrist fracture Surgical History (Updated 02/13/24 @ 09:48 by Leesa Lindo) History of right knee joint replacement Hx of gastric bypass Family History (Updated 02/13/24 @ 09:50 by Leesa Lindo) Mother Arthritis Diabetes Hypertension Father Colon cancer Heart disease Sister Arthritis Social History (Updated 02/13/24 @ 09:56 by Leesa Lindo) Smoking Status: Never smoker alcohol intake: current details: social substance use type: does not use additional social history: pt denies vaping, denies marijuana use, denies edibles, takes aspirin and ibuprofen daily. HPI right knee lipoma Details: Radha is a 73-year-old female patient who has noticed an asymmetry in her medial knees with the right medial knee area rubbing against her left leg. She is currently actively trying to lose weight. She states her mother had a history of lower extremity edema. ROS General General: Yes good health; No fatigue, fever(s) or weight loss HENMT HENMT: No rhinitis, sore throat/mouth sore, nasal congestion, contacts or glaucoma Endo Endocrine: No thyroid disease, polydipsia, heat intolerance, cold intolerance, hepatitis or excessive urine Skin Skin: No Bleeding, bruising, changing moles or suspicious lesion Musc Musculoskeletal: Yes joint stiffness; No joint pain, muscle weakness, back pain, osteoarthritis or Muscle aches/ myalgia Neuro Neurological: No headache(s), No lightheadedness and No numbness Cardio Cardiovascular: No chest pain, pacemaker, fatigue or shortness of breat with exertion Psych Psychiatric: Yes claustrophobia; No depression or anxiety Resp Respiratory: No spitting up, shortness of breath, sleep apnea, asthma, emphysema, TB, Cough or Smoker Gastro Gastrointestinal: Yes constipation; No diarrhea, blood in stool, nausea, vomiting or abdominal bloating Kameron Hematologic: No anemia, No bleeding and No abnormal bleeding Genitourinary: No urinary frequency, blood in urine or incontinence Exam Details The patient is noted to have prominent fat pads of the knees bilaterally with the right side more prominent than the left. She has visible varicosities over her anterior knee on the right side. She has smaller ptotic fat prominences in the medial calf area bilaterally. The overlying skin is intact. She has a well-healed scar from knee replacement on the right side that was done 12 years ago. Her surgery was done at [facility]. Her implant card does not specify the metal in the implant. The area is soft to palpation with no discrete mass palpable. I suggested use of a compression sleeve over this area to help reduce edema and determine whether this may represent just edema in the tissue. I reviewed obtaining imaging of the site to see if there is a discrete mass. We will follow-up to determine if her implant is compatible with MRI, if not we will obtain a CT scan. I briefly reviewed surgical intervention which could include direct excision or liposuction however I had suggested she continue on her weight loss pursuit and consider surgery when this is optimized. Const General: cooperative, healthy appearing and no acute distress [facility] Head: normal to (more content not included)... Normal [facility] CBC W/Diff, Automatedon 01-18 Absolute Lymph 1.38 X10 3/uL Normal 0.83-4.51 [facility] Comment on above: Performed By: #### L 501.9520, L500.4050, L100.0100, L506.1000 #### [facility] [address] [place], [address] Absolute Neut 2.5 X10 3/uL Normal 2.0-7.7 [facility] Comment on above: Performed By: #### L 501.9520, L500.4050, L100.0100, L506.1000 #### [facility] [address] [place], [address] Basophils/100 WBC (Bld) 0.7 % Normal 0-1 [facility] Comment on above: Performed By: #### L 501.9520, L500.4050, L100.0100, L506.1000 #### [facility] [address] [place], [address] Eosinophils/100 WBC (Bld) 1.1 % Normal 0-5 [facility] Comment on above: Performed By: #### L 501.9520, L500.4050, L100.0100, L506.1000 #### [facility] [address] [place], [address] Erythrocyte distribution width (RBC) [Ratio] 12.7 % Normal 11.6-14.6 [facility] Comment on above: Performed By: #### L 501.9520, L500.4050, L100.0100, L506.1000 #### [facility] [address] [place], [address] Hematocrit (Bld) [Volume fraction] 39.2 % Normal 37-47 [facility] Comment on above: Performed By: #### L 501.9520, L500.4050, L100.0100, L506.1000 #### [facility] [address] [place], [address] Hemoglobin (Bld) [Mass/Vol] 12.5 g/dL Normal 12.0-15.0 [facility] Comment on above: Performed By: #### L 501.9520, L500.4050, L100.0100, L506.1000 #### [facility] [address] [place], [address] IG% 0.200 Normal 0.0-0.9 [facility] Comment on above: Result Comment: IG% - Immature Granulocytes (promyelocytes, myelocytes and metamyelocytes) > 1% indicates that a LEFT SHIFT is Present. Performed By: #### L 501.9520, L500.4050, L100.0100, L506.1000 #### [facility] [address] [place], [address] Lymphocytes/100 WBC (Bld) 30.1 % Normal 19-41 [facility] Comment on above: Performed By: #### L 501.9520, L500.4050, L100.0100, L506.1000 #### [facility] [address] [place], [address] MCH (RBC) [Entitic mass] 30.0 pg Normal 27.0-32.0 [facility] Comment on above: Performed By: #### L 501.9520, L500.4050, L100.0100, L506.1000 #### [facility] [address] [place], [address] MCHC (RBC) [Mass/Vol] 31.9 g/dL Low 32-36 [facility] Comment on above: Performed By: #### L 501.9520, L500.4050, L100.0100, L506.1000 #### [facility] [address] [place], [address] MCV (RBC) [Entitic vol] 94.2 fL Normal 81-99 [facility] Comment on above: Performed By: #### L 501.9520, L500.4050, L100.0100, L506.1000 #### [facility] [address] [place], [address] Monocytes/100 WBC (Bld) 12.7 % High 0-10 [facility] Comment on above: Performed By: #### L 501.9520, L500.4050, L100.0100, L506.1000 #### [facility] [address] [place], [address] Neutrophils/100 WBC (Bld) 55.2 % Normal 47-70 [facility] Comment on above: Performed By: #### L 501.9520, L500.4050, L100.0100, L506.1000 #### [facility] [address] [place], [address] Nucleated RBC (Bld) [#/Vol] 0 10*3/uL Normal 0-5 [facility] Comment on above: Performed By: #### L 501.9520, L500.4050, L100.0100, L506.1000 #### [facility] [address] [place], [address] Platelet mean volume (Bld) [Entitic vol] 11.3 fL Normal 6.2-12.0 [facility] Comment on above: Performed By: #### L 501.9520, L500.4050, L100.0100, L506.1000 #### [facility] [address] [place], [address] Platelets (Bld) [#/Vol] 193 10*3/uL Normal 150-450 [facility] Comment on above: Performed By: #### L 501.9520, L500.4050, L100.0100, L506.1000 #### [facility] [address] [place], [address] RBC (Bld) [#/Vol] 4.16 10*6/uL Low 4.2-5.4 [facility] Comment on above: Performed By: #### L 501.9520, L500.4050, L100.0100, L506.1000 #### [facility] [address] [place], [address] RDW SD 43.7 fl Normal 35.1-43.9 [facility] Comment on above: Performed By: #### L 501.9520, L500.4050, L100.0100, L506.1000 #### [facility] [address] [place], [address] WBC (Bld) [#/Vol] 4.6 10*3/uL Normal 4.4-11.[address] [facility] Comment on above: Performed By: #### L 501.9520, L500.4050, L100.0100, L506.1000 #### [facility] [address] [place], [address] Comprehensive Metabolic Prof ilon 02-05-2024 Albumin [Mass/Vol] 3.4 g/dL Normal 3.2-5.[address] [facility] Comment on above: Performed By: #### L 501.9520, L500.4050, L100.0100, L506.1000 #### [facility] [address] [place], [address] Albumin/Globulin [Mass ratio] 0.8 {ratio} Low 0.9-2.4 [facility] Comment on above: Performed By: #### L 501.9520, L500.4050, L100.0100, L506.1000 #### [facility] [address] [place], [address] ALK P 93 U/L Normal 45-117 [facility] Comment on above: Performed By: #### L 501.9520, L500.4050, L100.0100, L506.1000 #### [facility] [address] [place], [address] ALT [Catalytic activity/Vol] 18 U/L Normal 13-56 [facility] Comment on above: Performed By: #### L 501.9520, L500.4050, L100.0100, L506.1000 #### [facility] [address] [place], [address] AST [Catalytic activity/Vol] 19 U/L Normal 15-37 [facility] Comment on above: Performed By: #### L 501.9520, L500.4050, L100.0100, L506.1000 #### [facility] [address] [place], [address] Bilirubin [Mass/Vol] 0.40 mg/dL Normal 0.20-1.00 [facility] Comment on above: Result Comment: For patients on eltrombopag therapy, use of Dimension [place] TBIL is not recommended. Performed By: #### L 501.9520, L500.4050, L100.0100, L506.1000 #### [facility] [address] [place], [address] BUN/CRE 25.6 RATIO High 10-20 [facility] Comment on above: Performed By: #### L 501.9520, L500.4050, L100.0100, L506.1000 #### [facility] [address] [place], [address] CA,Total 9.2 mg/dL Normal 8.5-10.1 [facility] Comment on above: Performed By: #### L 501.9520, L500.4050, L100.0100, L506.1000 #### [facility] [address] [place], [address] Chloride [Moles/Vol] 105 mmol/L Normal 98-107 [facility] Comment on above: Performed By: #### L 501.9520, L500.4050, L100.0100, L506.1000 #### [facility] [address] [place], [address] CO2 [Moles/Vol] 29.0 mmol/L Normal 21.0-32.0 [facility] Comment on above: Performed By: #### L 501.9520, L500.4050, L100.0100, L506.1000 #### [facility] [address] [place], [address] Creatinine [Mass/Vol] 0.66 mg/dL Normal 0.55-1.02 [facility] Comment on above: Result Comment: The validity of the calculated GFR GFRAA in patients over 70 years has not been determined. Clinical correlation is essential. Performed By: #### L 501.9520, L500.4050, L100.0100, L506.1000 #### [facility] [address] [place], [address] EST GFR - AA 112 mL/min Normal >60 [facility] Comment on above: Result Comment: Afri can Bangl[place] GFR Calc Performed By: #### L 501.9520, L500.4050, L100.0100, L506.1000 #### [facility] [address] [place], [address] GAP 3 Low 5-15 [facility] Comment on above: Performed By: #### L 501.9520, L500.4050, L100.0100, L506.1000 #### [facility] [address] [place], [address] GFR/1.73 sq M.predicted among non-blacks MDRD (S/P/Bld) [Vol rate/Area] 93 mL/min/{1.73_m2} Normal >60 [facility] Comment on above: Result Comment: Non- GFR Calc Performed By: #### L 501.9520, L500.4050, L100.0100, L506.1000 #### [facility] [address] [place], [address] Globulin (S) [Mass/Vol] 4.0 g/dL Normal 2.2-4.2 [facility] Comment on above: Performed By: #### L 501.9520, L500.4050, L100.0100, L506.1000 #### [facility] [address] [place], [address] Glucose [Mass/Vol] 96 mg/dL Normal 74-[address] [facility] Comment on above: Performed By: #### L 501.9520, L500.4050, L100.0100, L506.1000 #### [facility] [address] [place], [address] Potassium [Moles/Vol] 3.8 mmol/L Normal 3.5-5.1 [facility] Comment on above: Performed By: #### L 501.9520, L500.4050, L100.0100, L506.1000 #### [facility] [address] [place], [address] Sodium [Moles/Vol] 137 mmol/L Normal 136-[address] [facility] Comment on above: Performed By: #### L 501.9520, L500.4050, L100.0100, L506.1000 #### [facility] [address] [place], [address] T PROT 7.4 g/dL Normal 6.4-8.2 [facility] Comment on above: Performed By: #### L 501.9520, L500.4050, L100.0100, L506.1000 #### [facility] [address] [place], [address] Urea nitrogen [Mass/Vol] 17 mg/dL Normal 7-18 [facility] Comment on above: Performed By: #### L 501.9520, L500.4050, L100.0100, L506.1000 #### [facility] [address] [place], [address] Thyroid Stim Hormone (TSH)on 02-05-2024 TSH 1.03 uIU/mL Normal 0.358-3.74 [facility] Comment on above: Performed By: #### L 501.9520, L500.4050, L100.0100, L506.1000 #### [facility] [address] [place], [address] Vitamin D,25 Hydroxyon 02-04 Vitamin D 25-OH 57.2 ng/mL Normal [facility] Comment on above: Result Comment: Ciera min D 25(OH) Status Range Deficiency <20 ng/mL (50nmol/L) Insufficiency 20 - 30 ng/mL (50 - 75 nmol/L) Sufficiency 30 - 100 ng/mL (75 - 250 nmol/L) Toxicity >100 ng/mL (>250 nmol/L) Performed By: #### L 501.9520, L500.4050, L100.0100, L506.1000 #### [facility] [address] [place], [place], [address] Encounters Encounter Date Encounter Type Care Provider Facility Start: 08-21-2024 End: 08-21-2024 ambulatory [place] Facility:[facility] Start: 04-15-2024 End: 04-15-2024 ambulatory [place] Facility:[facility] Start: 03-05-2024 End: 03-05-2024 ambulatory [facility] Facility:[facility] Start: 02-26-2024 End: 02-26-2024 ambulatory [facility] Facility:[facility] Start: 02-13-2024 End: 02-13-2024 ambulatory [place] Facility:[facility] Start: 02-11-2024 End: 02-11-2024 ambulatory [place] Facility:[facility] Start: 02-05-2024 End: 02-05-2024 ambulatory [place] Facility:[facility] Start: 11-16-[address] KHADIJAH ALTAMIRANO [facility] Payers Date Payer Category Payer Unknown [id number] 2024 Medicare [id number] 2024 Private Health Insurance [id number] 2024 Self-pay Unknown [id number] 2.16.8 [id number] Unknown [id number] 2.16.8 [id number] Unknown [id number] 2.16.8 [id number] Unknown [id number] 2.16.8 [id number] Unknown [id number] 2.16.8 [id number] Unknown [id number] 2.16.8 [id number] Unknown [id number] 2.16.8 [id number] Summary Purpose Family History No Family History Records FoundNo Family History Records Found Advance Directives No Advanced Directives Records FoundNo Advanced Directives Records Found Additional Source Comments INFORMATION SOURCE (unrecogn ized section and content) DATE CREATED AUTHOR 11/18/2021 [facility] DATE CREATED AUTHOR AUTHOR'S ALEXANDR ATXUAN 09/14/2024 [facility] FOR RECORDS PERTAINING TO PATIENTS WHO ARE OR HAVE BEEN ENROLLED IN A CHEMICAL DEPENDENCY/SUBSTANCEABUSE PROGRAM, SOME INFORMATION MAY BE OMITTED. This clinical summary was aggregated from multiple sources. Caution should be exercised in using it in the provision of clinical care. This summary normalizes information from multiple sources, and as a consequence, information in this document may materially change the coding, format and clinical context of patient data. In addition, data may be omitted in some cases. CLINICAL DECISIONS SHOULD BE BASED ON THE PRIMARY CLINICAL RECORDS. [email or web address] [facility]. provides no warranty or guarantee of the accuracy or completeness of information in this document.
[2025-02-05 12:02] LABS: Absolute Lymphocyte Count 1.25 X10^3/uL (0.83-4.51); Absolute Neutrophil Count 3.7 X10^3/uL (2.0-7.7); Basophil# 0.02 X10^3/uL; Basophil% 0.4 % (0-1); Eosinophil# 0.05 X10^3/uL; Eosinophils% 0.9 % (0-5); Hemoglobin 12.4 g/dL (12.0-15.0); Lymphocyte # 1.25 X10^3/ul (0.83-4.51); Lymphocyte % 22.4 % (19-41); Mean Corp Hgb Conc 32.6 g/dL (32-36); Mean Corpuscular Volume 91.8 fL (81-99); Mean Platelet Vol. 10.7 fl (6.2-12.0); Monocyte# 0.55 X10^3/uL; Monocyte% 9.8 % (0-10); NRBC Flagged by Analyzer 0 % (0-5); Neutrophil # 3.72 X10^3/uL (2.7-7.7); Neutrophil % 66.5 % (47-70); Platelet Count 245 K/mm3 (150-450); RBC Distribution Width CV 13.6 % (11.6-14.6); RBC Distribution Width SD 46.3 fl (35.1-43.9); Red Blood Count 4.14 M/mm3 (4.2-5.4); White Blood Count 5.6 K/mm3 (4.4-11.0)
[2025-02-05 13:26] LABS: ALB/GLOB Ratio 1.1 RATIO (0.9-2.4); AST(SGOT) 18 U/L (<=31); Alanine Aminotransfer ALT/SGPT 11 U/L (<=34); Albumin, Serum 3.9 g/dL (3.4-4.8); Alkaline Phosphatase 76 U/L (35-104); Anion Gap 11 (5-15); BUN 12 mg/dL (4-19); BUN/Creat Ratio 20.3 RATIO (10-20); Calcium,Total 9.2 mg/dL (7.6-11.0); Carbon Dioxide 25.8 mmol/L (21.0-32.0); Chloride 104 mmol/L (98-108); Creatinine, Serum 0.61 mg/dL (0.70-1.20); EST Glomerular Filtration Rate 94 (>60); Globulin 3.6 g/dL (2.2-4.2); Glucose 89 mg/dL (70-99); Protein, Total 7.5 g/dL (5.9-8.4); Sodium Level 141 mmol/L (133-145); Syphilis Antibodies Nonreactive (Nonreactive); Total Bilirubin 0.42 mg/dL (0.00-1.30)
[2025-02-05 13:28] LABS: FOLATES,SERUM (FOLIC ACID) 3.73 ng/mL (4.60-34.80)
[2025-02-05 13:41] LABS: Vitamin B12 1582 pg/mL (180-914); Vitamin D,25 Hydroxy 58.2 ng/mL (30-100)
== END | disposition home or self-care (01) ==
PROVIDERS: PCP Family Medicine Geriatric Medicine; Referring Provider Family Medicine Geriatric Medicine; Visit Provider Family Medicine Geriatric Medicine
DX: E55.9 Vitamin D deficiency, unspecified (principal); R53.83 Other fatigue; G31.84 Mild cognitive impairment of uncertain or unknown etiology
CPT/HCPCS: 36415; 80053; 82306; 82607; 82746; 84443; 85025; 86780

== ENCOUNTER → 2025-02-06 | Outpatient (CLI) | payer MEDICARE, OTHER, SELFPAY ==
--- NOTE | 2025-02-06 07:17 | BI_ITS ---
EXAM: SCRN MAMM (CAD)W/BEATRIZ BILAT 02/06/2025 CLINICAL HISTORY: F, Age 74 y/o , SCREENING TECHNIQUE: Bilateral screening digital breast tomosynthesis with 2D and 3D images. Computer aided detection. COMPARISON: Prior exam(s) dated 09/09/2020, 07/03/2019. FINDINGS: TISSUE DENSITY: The breast tissue is heterogenously dense, which may obscure small masses. The mammogram demonstrates that the patient has dense breasts. Supplemental screening with whole breast ultrasound or MRI may be considered for further evaluation. Bilateral Breast Mammographic Findings: No significant masses, calcifications or other abnormalities are identified. BI/SCRN MAMM (CAD)W/BEATRIZ BILAT IMPRESSION: Right Breast: BIRADS 1 NEGATIVE. Left Breast: BIRADS 1 NEGATIVE. OVERALL FINAL ASSESSMENT: BIRADS 1 NEGATIVE. RECOMMENDATION: Routine annual follow-up in 1 Year A letter with findings and recommendations will be mailed to the patient. Reading Location: [id number]
--- OUTSIDE RECORDS SUMMARY | 2025-02-06 07:18 | XMS RPT_ITS | CCD ---
Author Organization [facility] Care Team Providers Care Marketing Operations Associate Name Role Phone EVELIA, DR KHADIJAH Washburn [...] Absolute Lymph 1.33 X10 3/uL Normal 0.83-4.51 [facility] Comment on above: Performed By: #### L 506.1000, L501.9520, L100.0100, L500.4050 #### [facility] [address] [place], [address] Absolute Neut 4.4 X10 3/uL Normal 2.0-7.7 [facility] Comment on above: Performed By: #### L 506.1000, L501.9520, L100.0100, L500.4050 #### [facility] [address] [place], [address] Basophils/100 WBC (Bld) 0.6 % Normal 0-1 [facility] Comment on above: Performed By: #### L 506.1000, L501.9520, L100.0100, L500.4050 #### [facility] [address] [place], [address] Eosinophils/100 WBC (Bld) 1.4 % Normal 0-5 [facility] Comment on above: Performed By: #### L 506.1000, L501.9520, L100.0100, L500.4050 #### [facility] [address] [place], [address] Erythrocyte distribution width (RBC) [Ratio] 12.7 % Normal 11.6-14.6 [facility] Comment on above: Performed By: #### L 506.1000, L501.9520, L100.0100, L500.4050 #### [facility] [address] [place], [address] Hematocrit (Bld) [Volume fraction] 42.0 % Normal 37-47 [facility] Comment on above: Performed By: #### L 506.1000, L501.9520, L100.0100, L500.4050 #### [facility] [address] [place], [address] Hemoglobin (Bld) [Mass/Vol] 13.5 g/dL Normal 12.0-15.0 [facility] Comment on above: Performed By: #### L 506.1000, L501.9520, L100.0100, L500.4050 #### [facility] [address] [place], [address] IG% 0.600 Normal 0.0-0.9 [facility] Comment on above: Result Comment: IG% - Immature Granulocytes (promyelocytes, myelocytes and metamyelocytes) > 1% indicates that a LEFT SHIFT is Present. Performed By: #### L 506.1000, L501.9520, L100.0100, L500.4050 #### [facility] [address] [place], [address] Lymphocytes/100 WBC (Bld) 20.2 % Normal 19-41 [facility] Comment on above: Performed By: #### L 506.1000, L501.9520, L100.0100, L500.4050 #### [facility] [address] [place], [address] MCH (RBC) [Entitic mass] 30.7 pg Normal 27.0-32.0 [facility] Comment on above: Performed By: #### L 506.1000, L501.9520, L100.0100, L500.4050 #### [facility] [address] [place], [address] MCHC (RBC) [Mass/Vol] 32.1 g/dL Normal 32-36 [facility] Comment on above: Performed By: #### L 506.1000, L501.9520, L100.0100, L500.4050 #### [facility] [address] [place], [address] MCV (RBC) [Entitic vol] 95.5 fL Normal 81-99 [facility] Comment on above: Performed By: #### L 506.1000, L501.9520, L100.0100, L500.4050 #### [facility] [address] [place], [address] Monocytes/100 WBC (Bld) 10.5 % High 0-10 [facility] Comment on above: Performed By: #### L 506.1000, L501.9520, L100.0100, L500.4050 #### [facility] [address] [place], [address] Neutrophils/100 WBC (Bld) 66.7 % Normal 47-70 [facility] Comment on above: Performed By: #### L 506.1000, L501.9520, L100.0100, L500.4050 #### [facility] [address] [place], [address] Nucleated RBC (Bld) [#/Vol] 0 10*3/uL Normal 0-5 [facility] Comment on above: Performed By: #### L 506.1000, L501.9520, L100.0100, L500.4050 #### [facility] [address] [place], [address] Platelet mean volume (Bld) [Entitic vol] 10.2 fL Normal 6.2-12.0 [facility] Comment on above: Performed By: #### L 506.1000, L501.9520, L100.0100, L500.4050 #### [facility] [address] [place], [address] Platelets (Bld) [#/Vol] 285 10*3/uL Normal 150-450 [facility] Comment on above: Performed By: #### L 506.1000, L501.9520, L100.0100, L500.4050 #### [facility] [address] [place], [address] RBC (Bld) [#/Vol] 4.40 10*6/uL Normal 4.2-5.4 [facility] Comment on above: Performed By: #### L 506.1000, L501.9520, L100.0100, L500.4050 #### [facility] [address] [place], [address] RDW SD 44.2 fl High 35.1-43.9 [facility] Comment on above: Performed By: #### L 506.1000, L501.9520, L100.0100, L500.4050 #### [facility] [address] [place], [address] WBC (Bld) [#/Vol] 6.6 10*3/uL Normal 4.4-11.0 [facility] Comment on above: Performed By: #### L 506.1000, L501.9520, L100.0100, L500.4050 #### [facility] [address] [place], [address] Comprehensive Metabolic Prof [facility] 08-21-2024 Albumin [Mass/Vol] 3.0 g/dL Low 3.2-5.0 [facility] Comment on above: Performed By: #### L 506.1000, L501.9520, L100.0100, L500.4050 #### [facility] [address] [place], [address] Albumin/Globulin [Mass ratio] 0.7 {ratio} Low 0.9-2.4 [facility] Comment on above: Performed By: #### L 506.1000, L501.9520, L100.0100, L500.4050 #### [facility] [address] [place], [address] ALK P 124 U/L High 45-117 [facility] Comment on above: Performed By: #### L 506.1000, L501.9520, L100.0100, L500.4050 #### [facility] [address] [place], [address] ALT [Catalytic activity/Vol] 21 U/L Normal 13-56 [facility] Comment on above: Performed By: #### L 506.1000, L501.9520, L100.0100, L500.4050 #### [facility] [address] [place], [address] AST [Catalytic activity/Vol] 19 U/L Normal 15-37 [facility] Comment on above: Performed By: #### L 506.1000, L501.9520, L100.0100, L500.4050 #### [facility] [address] [place], [address] Bilirubin [Mass/Vol] 0.30 mg/dL Normal 0.20-1.00 [facility] Comment on above: Result Comment: For patients on eltrombopag therapy, use of Dimension [place] TBIL is not recommended. Performed By: #### L 506.1000, L501.9520, L100.0100, L500.4050 #### [facility] [address] [place], [address] BUN/CRE 12.8 RATIO Normal 10-20 [facility] Comment on above: Performed By: #### L 506.1000, L501.9520, L100.0100, L500.4050 #### [facility] [address] [place], [address] CA,Total 8.9 mg/dL Normal 8.5-10.1 [facility] Comment on above: Performed By: #### L 506.1000, L501.9520, L100.0100, L500.4050 #### [facility] [address] [place], [address] Chloride [Moles/Vol] 106 mmol/L Normal 98-107 [facility] Comment on above: Performed By: #### L 506.1000, L501.9520, L100.0100, L500.4050 #### [facility] [address] [place], [address] CO2 [Moles/Vol] 31.0 mmol/L Normal 21.0-32.0 [facility] Comment on above: Performed By: #### L 506.1000, L501.9520, L100.0100, L500.4050 #### [facility] [address] [place], [address] Creatinine [Mass/Vol] 0.78 mg/dL Normal 0.55-1.02 [facility] Comment on above: Result Comment: The validity of the calculated GFR GFRAA in patients over 70 years has not been determined. Clinical correlation is essential. Performed By: #### L 506.1000, L501.9520, L100.0100, L500.4050 #### [facility] [address] [place], [address] EST GFR - AA 93 mL/min Normal >60 [facility] Comment on above: Result Comment: Afri can [place] GFR Calc Performed By: #### L 506.1000, L501.9520, L100.0100, L500.4050 #### [facility] [address] [place], [address] GAP 4 Low 5-15 [facility] Comment on above: Performed By: #### L 506.1000, L501.9520, L100.0100, L500.4050 #### [facility] [address] [place], [address] GFR/1.73 sq M.predicted among non-blacks MDRD (S/P/Bld) [Vol rate/Area] 77 mL/min/{1.73_m2} Normal >60 [facility] Comment on above: Result Comment: Non- GFR Calc Performed By: #### L 506.1000, L501.9520, L100.0100, L500.4050 #### [facility] [address] [place], [address] Globulin (S) [Mass/Vol] 4.6 g/dL High 2.2-4.2 [facility] Comment on above: Performed By: #### L 506.1000, L501.9520, L100.0100, L500.4050 #### [facility] [address] [place], [address] Glucose [Mass/Vol] 95 mg/dL Normal 74-106 [facility] Comment on above: Performed By: #### L 506.1000, L501.9520, L100.0100, L500.4050 #### [facility] [address] [place], [address] Potassium [Moles/Vol] 3.9 mmol/L Normal 3.5-5.1 [facility] Comment on above: Performed By: #### L 506.1000, L501.9520, L100.0100, L500.4050 #### [facility] [address] [place], [address] Sodium [Moles/Vol] 141 mmol/L Normal 136-145 [facility] Comment on above: Performed By: #### L 506.1000, L501.9520, L100.0100, L500.4050 #### [facility] [address] [place], [address] T PROT 7.6 g/dL Normal 6.4-8.2 [facility] Comment on above: Performed By: #### L 506.1000, L501.9520, L100.0100, L500.4050 #### [facility] [address] [place], [address] Urea nitrogen [Mass/Vol] 10 mg/dL Normal 7-18 [facility] Comment on above: Performed By: #### L 506.1000, L501.9520, L100.0100, L500.4050 #### [facility] [address] [place], [address] Thyroid Stim Hormone (TSH)on 08-21-2024 TSH 1.340 uIU/mL Normal 0.358-3.740 [facility] Comment on above: Performed By: #### L 506.1000, L501.9520, L100.0100, L500.4050 #### [facility] [address] [place], [address] Vitamin D,25 Hydroxyon 08-21 Vitamin D 25-OH 59.2 ng/mL Normal [facility] Comment on above: Result Comment: Ciera min D 25(OH) Status Range Deficiency <20 ng/mL (50nmol/L) Insufficiency 20 - 30 ng/mL (50 - 75 nmol/L) Sufficiency 30 - 100 ng/mL (75 - 250 nmol/L) Toxicity >100 ng/mL (>250 nmol/L) Performed By: #### L 506.1000, L501.9520, L100.0100, L500.4050 ####[facility] [address] [place], [address] /Himanshu 04-15-2024 /PAPI [facility] [address] [place], [place] [address] OFFICE VISIT Date of Service: 04/15/24 MR#: [id number] Acct: [id number] Name: RADHA QUINTANILLA Rep #: [id number] : 1950 Provider: ARIAS Pemberton Age/Sex: 73/F [place] [facility] Status: Signed Intake Vital Signs 03/05/24 10:06 [...] No senso (more content not included)... Normal [facility] Plastic Surgery Visit Report on 03-05-2024 Plastic Surgery Visit Report [facility] [address] [place], [place] [id number] OFFICE VISIT Date of Service: 03/05/24 MR#: [id number] Acct: [id number] Name: RADHA QUINTANILLA Rep #: [id number] : 1950 Provider: Dr. Edita reyes MD Age/Sex: 73/F [place] [facility] Status: Signed Intake Vital Signs 02/13/24 [...] I83.891 Swelling of right lower extremity M79.89 [facility] Medical History (Updated 03/05/24 @ 10:42 by [...] Cosigner Signature: Date (if applicable) CC: Normal [facility] Extremity Lower without Cont raon 02-26-2024 Extremity Lower without Contra [facility] [address] [place], [place] [address] Extremity Lower without Contra MR#: [id number] Acct: [id number] Name: RADHA QUINTANILLA LEWIS Rep #: [id number] : 1950 F 73 From: Mohinder Sierra MD PCP: Dr. Vivek Cheng MD Status: REG CLI Study: Extremity Lower without Contra Date of Exam: 0 02/26/24 Exam# [id number] Ordering Dr: Edita Bauman MD [id number] STUDY: CT RIGHT KNEE WITHOUT CONTRAST REASON [...] Vivek Cheng MD; Dr. Edita Bauman MD Heating Technician: Signed Normal [facility] Lyme Antibodies,W [place] LYME IgG INTERP Negative Normal . [facility] Comment on above: Result Comment: Posi tive: 5 of the following Borrelia-specific bands: 18,23,28,30,39,41,45,58, 66, and 93. Negative: No bands or banding patterns which do not meet positive criteria. Performed By: #### L 7000.5800 ####[facility] [address] [place], [place], [address] LYME IgM INTERP Negative Normal . [facility] Comment on above: Result Comment: Note : [...] are those recommended by CDC/ASTPHLD. p23=Osp C, w06=vxmlhecvt Note: Sera from individuals with the following may cross react in the Lyme Line Blot assays: other spirochetal diseases (periodontal disease, leptospirosis, relapsing fever, yaws, and pinta); connective autoimmune (Rheumatoid Arthritis and Systemic Lupus Erythematosus and also individuals with Antinuclear Antibody); other infections (Chemult Spotted Fever; Becky-Quintanilla Virus, and Cytomegalovirus). Please Note: Lyme immunoblot alone is not recommended for the diagnosis of Lyme disease. Current guidelines recommend the use of a two-tiered approach to Lyme serology testing to improve the sensitivity and specificity of testing. [facility] offers test code 392989 Lyme Disease Serology with Reflex to aid in the diagnosis of Lyme Disease. Performed at: [address] [place], [place] [id number] Billet Worker: Binu Sandoval MD, Phone: [phone] Performed By: #### L ####[facility] [address] [place], [address] P18 Ab Absent Normal . [facility] Comment on above: Performed By: #### L 6999.5799 ####[facility] [address] [place], [address] P23 Ab Absent Normal . [facility] Comment on above: Performed By: #### L ####[facility] [address] [place], [address] P28 Ab Absent Normal . [facility] Comment on above: Performed By: #### L ####[facility] [address] [place], [address] P30 Ab Absent Normal . [facility] Comment on above: Performed By: #### L ####[facility] [address] [place], [address] P39 Ab Absent Normal . [facility] Comment on above: Performed By: #### L ####[facility] [address] [place], [address] P41 Ab Present Abnormal . [facility] Comment on above: Performed By: #### L 0 ####[facility] [address] [place], [address] P41 Ab Absent Normal . [facility] Comment on above: Performed By: #### L ####[facility] [address] [place], [address] P45 Ab Absent Normal . [facility] Comment on above: Performed By: #### L 0 ####[facility] [address] [place], [address] P58 Ab Present Abnormal . [facility] Comment on above: Performed By: #### L 7000.5800 ####[facility] [address] [place], [address] P66 Ab Absent Normal . [facility] Comment on above: Performed By: #### L 7000.5800 ####[facility] [address] [place], [address] P93 Ab Present Abnormal . [facility] Comment on above: Performed By: #### L 7000.5800 ####[facility] [address] [place], [place], [address] Plastic Surgery Visit Report on 02-13-2024 Plastic Surgery Visit Report [facility] [address] [place] [address] OFFICE VISIT Date of Service: 02/13/24 MR#: [id number] Acct: [id number] Name: RADHA QUINTANILLA LEWIS Rep #: [id number] : 1950 Provider: Dr. Edita reyes MD Age/Sex: 73/F Location: [facility] Status: Signed Intake Vital Signs 09/28/20 08:31 [...] Note: pt here for right leg lipoma [facility] Medical History (Updated 02/13/24 @ 10:23 by [...] years ago. Her surgery was done at [facility]. Her implant card does not specify [...] cooperative, healthy appearing and no acute distress [facility] Head: normal to (more content not included)... Normal [facility] CBC W/Diff, Automatedon 01-18 Absolute Lymph 1.38 X10 3/uL Normal 0.83-4.51 [facility] Comment on above: Performed By: #### L 501.9520, L500.4050, L100.0100, L506.1000 #### [facility] [address] [place], [address] Absolute Neut 2.5 X10 3/uL Normal 2.0-7.7 [facility] Comment on above: Performed By: #### L 501.9520, L500.4050, L100.0100, L506.1000 #### [facility] [address] [place], [address] Basophils/100 WBC (Bld) 0.7 % Normal 0-1 [facility] Comment on above: Performed By: #### L 501.9520, L500.4050, L100.0100, L506.1000 #### [facility] [address] [place], [address] Eosinophils/100 WBC (Bld) 1.1 % Normal 0-5 [facility] Comment on above: Performed By: #### L 501.9520, L500.4050, L100.0100, L506.1000 #### [facility] [address] [place], [address] Erythrocyte distribution width (RBC) [Ratio] 12.7 % Normal 11.6-14.6 [facility] Comment on above: Performed By: #### L 501.9520, L500.4050, L100.0100, L506.1000 #### [facility] [address] [place], [address] Hematocrit (Bld) [Volume fraction] 39.2 % Normal 37-47 [facility] Comment on above: Performed By: #### L 501.9520, L500.4050, L100.0100, L506.1000 #### [facility] [address] [place], [address] Hemoglobin (Bld) [Mass/Vol] 12.5 g/dL Normal 12.0-15.0 [facility] Comment on above: Performed By: #### L 501.9520, L500.4050, L100.0100, L506.1000 #### [facility] [address] [place], [address] IG% 0.200 Normal 0.0-0.9 [facility] Comment on above: Result Comment: IG% - Immature Granulocytes (promyelocytes, myelocytes and metamyelocytes) > 1% indicates that a LEFT SHIFT is Present. Performed By: #### L 501.9520, L500.4050, L100.0100, L506.1000 #### [facility] [address] [place], [address] Lymphocytes/100 WBC (Bld) 30.1 % Normal 19-41 [facility] Comment on above: Performed By: #### L 501.9520, L500.4050, L100.0100, L506.1000 #### [facility] [address] [place], [address] MCH (RBC) [Entitic mass] 30.0 pg Normal 27.0-32.0 [facility] Comment on above: Performed By: #### L 501.9520, L500.4050, L100.0100, L506.1000 #### [facility] [address] [place], [address] MCHC (RBC) [Mass/Vol] 31.9 g/dL Low 32-36 [facility] Comment on above: Performed By: #### L 501.9520, L500.4050, L100.0100, L506.1000 #### [facility] [address] [place], [address] MCV (RBC) [Entitic vol] 94.2 fL Normal 81-99 [facility] Comment on above: Performed By: #### L 501.9520, L500.4050, L100.0100, L506.1000 #### [facility] [address] [place], [address] Monocytes/100 WBC (Bld) 12.7 % High 0-10 [facility] Comment on above: Performed By: #### L 501.9520, L500.4050, L100.0100, L506.1000 #### [facility] [address] [place], [address] Neutrophils/100 WBC (Bld) 55.2 % Normal 47-70 [facility] Comment on above: Performed By: #### L 501.9520, L500.4050, L100.0100, L506.1000 #### [facility] [address] [place], [address] Nucleated RBC (Bld) [#/Vol] 0 10*3/uL Normal 0-5 [facility] Comment on above: Performed By: #### L 501.9520, L500.4050, L100.0100, L506.1000 #### [facility] [address] [place], [address] Platelet mean volume (Bld) [Entitic vol] 11.3 fL Normal 6.2-12.0 [facility] Comment on above: Performed By: #### L 501.9520, L500.4050, L100.0100, L506.1000 #### [facility] [address] [place], [address] Platelets (Bld) [#/Vol] 193 10*3/uL Normal 150-450 [facility] Comment on above: Performed By: #### L 501.9520, L500.4050, L100.0100, L506.1000 #### [facility] [address] [place], [address] RBC (Bld) [#/Vol] 4.16 10*6/uL Low 4.2-5.4 [facility] Comment on above: Performed By: #### L 501.9520, L500.4050, L100.0100, L506.1000 #### [facility] [address] [place], [address] RDW SD 43.7 fl Normal 35.1-43.9 [facility] Comment on above: Performed By: #### L 501.9520, L500.4050, L100.0100, L506.1000 #### [facility] [address] [place], [address] WBC (Bld) [#/Vol] 4.6 10*3/uL Normal 4.4-11.0 [facility] Comment on above: Performed By: #### L 501.9520, L500.4050, L100.0100, L506.1000 #### [facility] [address] [place], [address] Comprehensive Metabolic Prof ilon 02-05-2024 Albumin [Mass/Vol] 3.4 g/dL Normal 3.2-5.0 [facility] Comment on above: Performed By: #### L 501.9520, L500.4050, L100.0100, L506.1000 #### [facility] [address] [place], [address] Albumin/Globulin [Mass ratio] 0.8 {ratio} Low 0.9-2.4 [facility] Comment on above: Performed By: #### L 501.9520, L500.4050, L100.0100, L506.1000 #### [facility] [address] [place], [address] ALK P 93 U/L Normal 45-117 [facility] Comment on above: Performed By: #### L 501.9520, L500.4050, L100.0100, L506.1000 #### [facility] [address] [place], [address] ALT [Catalytic activity/Vol] 18 U/L Normal 13-56 [facility] Comment on above: Performed By: #### L 501.9520, L500.4050, L100.0100, L506.1000 #### [facility] [address] [place], [address] AST [Catalytic activity/Vol] 19 U/L Normal 15-37 [facility] Comment on above: Performed By: #### L 501.9520, L500.4050, L100.0100, L506.1000 #### [facility] [address] [place], [address] Bilirubin [Mass/Vol] 0.40 mg/dL Normal 0.20-1.00 [facility] Comment on above: Result Comment: For patients on eltrombopag therapy, use of Dimension [place] TBIL is not recommended. Performed By: #### L 501.9520, L500.4050, L100.0100, L506.1000 #### [facility] [address] [place], [address] BUN/CRE 25.6 RATIO High 10-20 [facility] Comment on above: Performed By: #### L 501.9520, L500.4050, L100.0100, L506.1000 #### [facility] [address] [place], [address] CA,Total 9.2 mg/dL Normal 8.5-10.1 [facility] Comment on above: Performed By: #### L 501.9520, L500.4050, L100.0100, L506.1000 #### [facility] [address] [place], [address] Chloride [Moles/Vol] 105 mmol/L Normal 98-107 [facility] Comment on above: Performed By: #### L 501.9520, L500.4050, L100.0100, L506.1000 #### [facility] [address] [place], [address] CO2 [Moles/Vol] 29.0 mmol/L Normal 21.0-32.0 [facility] Comment on above: Performed By: #### L 501.9520, L500.4050, L100.0100, L506.1000 #### [facility] [address] [place], [address] Creatinine [Mass/Vol] 0.66 mg/dL Normal 0.55-1.02 [facility] Comment on above: Result Comment: The validity of the calculated GFR GFRAA in patients over 70 years has not been determined. Clinical correlation is essential. Performed By: #### L 501.9520, L500.4050, L100.0100, L506.1000 #### [facility] [address] [place], [address] EST GFR - AA 112 mL/min Normal >60 [facility] Comment on above: Result Comment: Afri can [place] GFR Calc Performed By: #### L 501.9520, L500.4050, L100.0100, L506.1000 #### [facility] [address] [place], [address] GAP 3 Low 5-15 [facility] Comment on above: Performed By: #### L 501.9520, L500.4050, L100.0100, L506.1000 #### [facility] [address] [place], [address] GFR/1.73 sq M.predicted among non-blacks MDRD (S/P/Bld) [Vol rate/Area] 93 mL/min/{1.73_m2} Normal >60 [facility] Comment on above: Result Comment: Non- GFR Calc Performed By: #### L 501.9520, L500.4050, L100.0100, L506.1000 #### [facility] [address] [place], [address] Globulin (S) [Mass/Vol] 4.0 g/dL Normal 2.2-4.2 [facility] Comment on above: Performed By: #### L 501.9520, L500.4050, L100.0100, L506.1000 #### [facility] [address] [place], [address] Glucose [Mass/Vol] 96 mg/dL Normal 74-106 [facility] Comment on above: Performed By: #### L 501.9520, L500.4050, L100.0100, L506.1000 #### [facility] [address] [place], [address] Potassium [Moles/Vol] 3.8 mmol/L Normal 3.5-5.1 [facility] Comment on above: Performed By: #### L 501.9520, L500.4050, L100.0100, L506.1000 #### [facility] [address] [place], [address] Sodium [Moles/Vol] 137 mmol/L Normal 136-145 [facility] Comment on above: Performed By: #### L 501.9520, L500.4050, L100.0100, L506.1000 #### [facility] [address] [place], [address] T PROT 7.4 g/dL Normal 6.4-8.2 [facility] Comment on above: Performed By: #### L 501.9520, L500.4050, L100.0100, L506.1000 #### [facility] [address] [place], [address] Urea nitrogen [Mass/Vol] 17 mg/dL Normal 7-18 [facility] Comment on above: Performed By: #### L 501.9520, L500.4050, L100.0100, L506.1000 #### [facility] [address] [place], [address] Thyroid Stim Hormone (TSH)on 02-05-2024 TSH 1.03 uIU/mL Normal 0.358-3.74 [facility] Comment on above: Performed By: #### L 501.9520, L500.4050, L100.0100, L506.1000 #### [facility] [address] [place], [address] Vitamin D,25 Hydroxyon 02-04 Vitamin D 25-OH 57.2 ng/mL Normal [facility] Comment on above: Result Comment: Ciera min D 25(OH) Status Range Deficiency <20 ng/mL (50nmol/L) Insufficiency 20 - 30 ng/mL (50 - 75 nmol/L) Sufficiency 30 - 100 ng/mL (75 - 250 nmol/L) Toxicity >100 ng/mL (>250 nmol/L) Performed By: #### L 501.9520, L500.4050, L100.0100, L506.1000 #### [facility] [address] [place], [place], [address] Encounters Encounter Date Encounter Type Care Provider Facility Start: 08-21-2024 End: 08-21-2024 ambulatory [facility] Facility:[facility] Start: 04-15-2024 End: 04-15-2024 ambulatory [facility] Fuentes Facility:[facility] Start: 03-05-2024 End: 03-05-2024 ambulatory [facility] Facility:[facility] Start: 02-26-2024 End: 02-26-2024 ambulatory [facility] Facility:[facility] Start: 02-13-2024 End: 02-13-2024 ambulatory [facility] Facility:[facility] Start: 02-11-2024 End: 02-11-2024 ambulatory [facility] Facility:[facility] Start: 02-05-2024 End: 02-05-2024 ambulatory [facility] Facility:[facility] Start: 11-16-[address] KHADIJAH ALTAMIRANO [facility] Payers Date Payer Category Payer Unknown [id number] 2024 Medicare [id number] 2024 Private Health Insurance [id number] 2024 Self-pay Unknown [id number] 2.16.8 [id number] Unknown [id number] 2.16.8 [id number] Unknown [id number] 2.16.8 [id number] Unknown [id number] 2.16.8 [id number] Unknown [id number] 2.16.8 [id number] Unknown [id number] 2.16.8 [id number] Unknown [id number] 2.16.8 [id number] Summary Purpose Family History No Family History Records FoundNo Family History Records Found Advance Directives No Advanced Directives Records FoundNo Advanced Directives Records Found Additional Source Comments INFORMATION SOURCE (unrecogn ized section and content) DATE CREATED AUTHOR 11/18/2021 [facility] DATE CREATED AUTHOR AUTHOR'S ALEXANDR ATXUAN 09/14/2024 [facility] FOR RECORDS PERTAINING TO PATIENTS WHO ARE [...] BE BASED ON THE PRIMARY CLINICAL RECORDS. [employer] [facility]. provides no warranty or guarantee of the accuracy or completeness of information in this document.
== END | disposition home or self-care (01) ==
LOC: OPBI 07:14
PROVIDERS: PCP Family Medicine Geriatric Medicine; Referring Provider Family Medicine Geriatric Medicine; Visit Provider Family Medicine Geriatric Medicine
DX: Z12.31 Encounter for screening mammogram for malignant neoplasm of breast (principal); G31.84 Mild cognitive impairment of uncertain or unknown etiology
CPT/HCPCS: 77063; 77067

== ENCOUNTER → 2025-03-14 | Outpatient (CLI) | payer MEDICARE, OTHER, SELFPAY ==
--- OUTSIDE RECORDS SUMMARY | 2025-03-14 07:08 | XMS RPT_ITS | CCD ---
Author Organization [facility] Care Team Providers Care Neon Glass Bender Name Role Phone EVELIA, DR KHADIJAH Washburn Attending Unavaila ble EVELIA, DR KHADIJAH Washburn Primary Care Unavaila ble EVELIA, DR KHADIJAH Washburn Admitting Unavaila ble Prosper JIN, Dr. Vivek Walker Primary Care Provider Prosper JIN, Dr. Vivek Walker Attending Provider Prosper JIN, Dr. Vivek Walker Referring Provider Prosper, Vivek Chi Referring Unavailable Prosper, Vivek Chi Primary Care Unavailable Prosper, Vivek Chi Attending Unavailable Prosper, Vivek Chi Attending Unavailable Prosper, Vivek Chi Primary Care Unavailable Prosper, Vivek Chi Attending Unavailable Prosper, Vivek Chi Referring Unavailable Prosper, Vivek Chi Primary Care Unavailable Prosper, Vivek Chi Referring Unavailable Tova Fuentes Attending Unavailable Prosper, Vivek Chi Primary Care Unavailable Medications Current Medications Medication Drug Class(es) Dates Sig (Normalized) Sig (Original) aspirin 81 mg delayed release oral tablet (2 sources) Platelet Aggregation Inhibitor, Nonsteroidal Anti-inflammatory Drug Start: 02-13-2024 Aspirin (Adult Low Dose Aspirin) 81 mg tablet,delayed release (DR/EC) Active 81 mg PO DAILY February 13, 2024 12:00am biotin 5 mg disintegrating oral tablet (2 sources) Start: 07-10-2017 take 1 tablet by mouth once daily Biotin 5,000 MCG tablet,disintegr ating Active 5000 ug PO DAILY July 10, 2017 1:00am Completed/Discontinued Medications Medication Drug Class(es) Dates Sig (Normalized) Sig (Original) acetaminophen 325 mg / oxyCODONE hydrochloride 5 mg oral tablet (2 sources) Opioid Agonist Start: 07-22-2017 End: 12-23-2021 Oxycodone-Acetamin ophen 1 TABLET tablet Discontinued 1 - 2 {tbl} PO EVERY 6 HOURS NEEDED as needed for Pain July 22, 2017 1:00am December 23, 2021 8:03am ibuprofen 600 mg oral tablet (2 sources) Nonsteroidal Anti-inflammatory Drug Start: 07-22-2017 End: 04-15-2024 Ibuprofen 600 MG tablet Discontinued 600 mg PO NEEDED as needed for Pain July 22, 2017 1:00am April 15, 2024 9:12am Afwiykdjdrvf-Wzrs-Vb lic Acid (Hm Complete Women Tablet) 1 EACH tablet (2 sources) Start: 07-10-2017 End: 04-15-2024 Multivitamin-Iron- Folic Acid (Hm Complete Women Tablet) 1 EACH tablet Discontinued 1 NMA PO DAILY July 10, 2017 1:00am April 15, 2024 9:12am Turmeric extract (2 sources) Start: 12-23-2021 End: 04-15-2024 Turmeric 400 mg capsule Discontinued mg PO December 23, 2021 12:00am April 15, 2024 9:12am Problems Active Problems Problem Classification Problem Date Documented Da te Episodic/Chronic Fracture of upper limb (2 sources) Fracture of distal end of right radius; Translations: [Unspecified fracture of the lower end of right radius, initial encounter for closed fracture] 12-23-2021 Episodic Neoplasms of unspecified nature or uncertain behavior (2 sources) Neoplastic disease of uncertain behavior; Translations: [Neoplasm of uncertain behavior of connective and other soft tissue] 02-13-2024 Episodic Nutritional deficiencies (1 source) Vitamin D deficiency, unspecified; Translations: [Vitamin D deficiency, unspecified] Onset: 03-04-2025 Chronic Other connective tissue disease (2 sources) Swelling of right lower limb; Translations: [Other specified soft tissue disorders] 03-05-2024 Episodic Other screening for suspected conditions (not mental disorders or infectious disease) (1 source) Encounter for screening mammogram for malignant neoplasm of breast; Translations: [Encounter for screening mammogram for malignant neoplasm of breast] Onset: 02-12-2025 Episodic Ovarian cyst (2 sources) Cyst of ovary; Translations: [Unspecified ovarian cyst, left side] 07-23-2017 Episodic Past or Other Problems Problem Classification Problem Date Documented Da te Episodic/Chronic Varicose veins of lower extremity (3 sources) 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 COMMENT Normal . [facility] Comment on above: Order Comment: [id number] 0APOE WB LAV RT Result Comment: Test Ordered: [id number] APOE Alzheimer's Risk Methodology: Comment UY Reference Range: . Patient DNA is assayed for the APOE genotype by PCR amplification of a specific region in exon 4 of the APOE gene followed by digestion with restriction enzyme Anatomic Pathologist I and separation of fragments by polyacrylamide gel electrophoresis. This approach allows the APOE E2, E3, and E4 alleles to be distinguished. Analytical sensitivity and specificity are >99.5%. Individuals are interpreted as having one of the following genotypes: E2/E2, E3/E3, E4/E4, E2/E3, E2/E4, E3/E4. APO E Genotyping Result: Comment UY Reference Range: . E3/E4 (one copy of the APOE4 variant) Interpretation: Comment UY Reference Range: . Positive for one copy of the APOE4 variant that is associated with increased risk for late onset Alzheimer's disease (AD). Therefore the lifetime risk for AD is increased in this individual. However, most individuals with one copy of the APOE4 variant do not develop AD. RECOMMENDATIONS Genetic counseling is recommended. Due to the lack of measures to prevent the development of AD, the ACMG/NSGC guidelines do not recommend presymptomatic testing, but if it is performed, guidelines are provided (Bob MOORE et al. 2011). The APOE Genotyping: Alzheimer's Risk test is not recommended for children. NOTE: This is not a diagnostic test. Results should be interpreted along with clinical findings and other data. This test evaluates only for the APOE genotype and cannot detect genetic abnormalities elsewhere in the genome. It should be realized that there are possible sources of error including sample misidentification, rare technical errors, trace contamination of PCR reactions, and rare genetic variants that may interfere with analysis. For inquiries or genetic consultation, please call [facility] at . Comment: Comment UY Reference Range: . INFORMATION ABOUT THE APOE GENOTYPE AND ALZHEIMER'S DISEASE Alzheimer's disease (AD) is the most common form of dementia in the elderly and currently affects more than 5 million Americans. It is a progressive neurodegenerative disorder with brain findings of plaques and neurofibrillary tangles containing beta-amyloid and tau protein respectively. The predominant form of AD is late onset (age > 60-65), which can be familial (15-20%) or sporadic. The APOE4 variant increases the risk for late onset AD and may contribute to the pathology of the disease. This risk is increased by approximately 2 to 3-fold for individuals with one copy of the APOE4 variant and by approximately 10 [id number]-blsa for individuals with two copies of this variant (E4/E4 genotype). The APOE2 variant has some protective effect against development of late onset AD. The lifetime risk for late onset AD is approximately 10-12% in the general population, though it is higher in women than men and doubles when there is a first degree relative with this disorder. The lifetime risk is approximately 9% for individuals negative for APOE4, and for individuals with E4/E4 may be as high as 25% for males and 45% for females. Among patients with late onset AD, the presence of APOE4 may lead to earlier development of symptoms. However, APOE4 is neither necessary nor sufficient for the development of AD. Approximately 30-50% of patients with late onset AD do not have an APOE4 allele. APOE4 is common, with 25% of the general population having one copy and 1% having two copies of this variant. Among patients with late onset AD, 50-70% are positive for APOE4. The development of late onset AD is influenced by many factors other than APOE4 including age, gender, family history, level of education and history of head trauma. Midlife cardiovascular risk factors in individuals with APOE4 also increase risk for cognitive decline. A number of genetic influences in addition to APOE4 have also been reported and are under investigation. This test was developed and its performance characteristics determined by [facility]. It has not been cleared or approved by the Food and Drug Administration. The FDA has determined that such clearance or approval is not necessary. REFERENCES Fadumo A et al. Sex modifies the APOE-related risk of developing Alzheimer disease. Annal Neurol 2014;75(4):563-573 Roby BARRIENTOS. Alzheimer Disease Overview. GeneReviews (internet). Tino VAZQUEZ et al., editors. [facility]: [facility], [place], [place]. Last revised 2014. Bob JS et al. Genetic counseling and testing for Alzheimer disease: Joint practice guidelines of the [place] [employer] and the National Society of Genetic Counselors. Radha in Med 2011;13(6)597-601. Magda AGUIRRE. Apolipoprotein E: Implications for AD neurobiology, epidemiology and risk assessment. Neurobiology of Aging 2011;32:778-790 Performed at: [facility] [address] (more content not included)... Performed By: #### L 506.1000, L501.9520, L100.0100, L500.4050 #### [facility] [address] [place], [address] L3410.9994on 02-10-2025 [facility] Misc. 2 COMMENT Normal . [facility] Comment on above: Order Comment: [id number] 5Bet Amyloid TALL LAV PLASMA FZ Result Comment: Test Ordered: [id number] Beta Amyloid 42/40 Ratio Test(s) 713587-Ezdu-xcxdiky 42/40 Ratio; 747731- Beta-amyloid 42; 767501-Qnuk-zfjepje 40 was developed and its performance characteristics determined by [facility]. It has not been cleared or approved by the Food and Drug Administration. Beta-amyloid 42/40 Ratio 0.096 [L ] BN Reference Range: >0.102 Beta-amyloid 42 15.54 pg/mL BN Reference Range: . Beta-amyloid 40 161.77 pg/mL BN Reference Range: . Plasma beta-amyloid 1-42/1-40 ratios less than or equal to 0.102 suggest a higher probability of a patient being clinically diagnosed with Alzheimer's Disease (AD), while values above 0.102 suggest a lower probability of AD diagnosis. Precise plasma testing of Beta Amyloid 42 and Beta Amyloid 40 has demonstrated comparable effectiveness to traditional cerebrospinal fluid testing and amyloid positron emission tomography (PET) scans. When assessing the risk of AD pathology as the underlying cause for mild cognitive impairment (MCI) or dementia, it is important to consider various factors such as medical and family history, nutritional deficiency biomarkers, neuroimaging, and physical, neurological, and neuropsychological examinations. Methodology: [employer] Chemiluminescence Enzyme Immunoassay (CLEIA). Values obtained with different methods cannot be used interchangeably. Performed at: [facility] [employer] [id number] Supervisor Multifocal Lens: Binu Sandoval MD, Phone: [phone] Performed at: [facility] [id number] [place], [place] [id number] Supervisor Multifocal Lens: Luis Robertson PhD, Phone: [phone] Performed By: #### L 506.3381, J205.0232, L100.0100, L500.4080 #### [facility] [address] [place], [address] L3410.9996on 02-10-2025 [facility] Misc. 3 COMMENT Normal . [facility] Comment on above: Order Comment: [id number] TALL [facility] PLASMA FZ Result Comment: Test Ordered: [id number] Test(s) 448004-x-[id number] was developed and its performance characteristics determined by [facility]. It has not been cleared or approved by the Food and Drug Administration. p-psn178 0.29 [H ] pg/mL L9 Reference Range: 0.00-0.18 Clinical cutoff value was established using samples from a patient cohort characterized with amyloid PET data. A p-sgj070 value of >0.18 is a reported surrogate marker for beta amyloid pathology, and can be used to facilitate biological identification of Alzheimer's disease (1). p-aru975 has also been used in clinical trials to monitor patients on anti-amyloid therapy (2,3). Test performed by [employer] chemiluminescent enzyme immunoassay (CLEIA). Values obtained with different methods cannot be used interchangeably. The validated limit of quantification is 0.06 pg/mL. Assay detection limit is 0.03 pg/mL. Footnotes Comment L9 Reference Range: . 1. Rahul Arora, et al. "Diagnostic Accuracy of a Plasma Phosphorylated Tau 217 Immunoassay for Alzheimer Disease Pathology." SHANNON neurology (2023). 2. Rahul Arora, et al. "Differential roles of A42/40, p-gse096 and p-ecz051 for Alzheimer's trial selection and disease monitoring." Nature medicine 28.12 (2021): 3913-5870. 3. Andrew CR, Karla M, Anabell SC, et al. "Association of Donanemab Treatment With Exploratory Plasma Biomarkers in Early Symptomatic Alzheimer Disease: A Secondary Analysis of the TRAILBLAZER-ALZ Randomized Clinical Trial". SHANNON Neurol. 2021;79(12):6219-2770. Performed at: [facility] [address] [place] [id number] Supervisor Multifocal Lens: Ezequiel Gomes MD, Phone: [phone] Performed at: - [facility] [id number] Supervisor Multifocal Lens: Luis Robertson PhD, Phone: [phone] Performed By: #### L 506.1000, L501.6420, L100.0100, L500.4050 #### [facility] [address] [place], [address] Breast imaging reportOrdered By: Dayanara Morgan on 02-06-2025 Study report [facility] Imaging Services [address] [place] [address] SCRN MAMM (CAD)W/BEATRIZ BILAT MR#: [id number] Acct: [id number] Name: JOSE QUINTANILLA LEWIS Rep #: [id number] : 1950 F 74 From: Deborah Morgan MD PCP: Dr. Vivek Cheng MD Status: [facility] Study:SCRN MAMM (CAD)W/BEATRIZ BILAT Date of Exa m: 02/06/25 Exam# [id number] Ordering Dr: Vivek Cheng MD EXAM: SCRN MAMM (CAD)W/BEATRIZ BILAT 02/06/2025 CLINICAL HISTORY: F, Age 74 y/o , SCREENING TECHNIQUE: Bilateral screening digital breast tomosynthesis with 2D and 3D images. Computeraided detection. COMPARISON: Prior exam(s) dated 09/09/2020, 07/03/2019. FINDINGS: TISSUE DENSITY: The breast tissue is heterogenously dense, which may obscure small masses. The mammogram demonstrates that the patient has dense breasts. Supplemental screening with whole breast ultrasound or MRI may be considered for further evaluation. Bilateral Breast Mammographic Findings: No significant masses, calcifications or other abnormalities are identified. BI/SCRN MAMM (CAD)W/BEATRIZ BILAT IMPRESSION: Right Breast: BIRADS 1 NEGATIVE. Left Breast: BIRADS 1 NEGATIVE. OVERALL FINAL ASSESSMENT: BIRADS 1 NEGATIVE. RECOMMENDATION: Routine annual follow-up in 1 Year A letter with findings and recommendations will be mailed to the patient. Reading Location: [facility] CC: Dr. Vivek Cheng MD ~ Digital Media Designer: Signed [facility] SCRN MAMM (CAD)W/BEATRIZ BILATo n 02-06-2025 SCRN MAMM (CAD)W/BEATRIZ BILAT [facility] Imaging Services [address] [place], [place] [id number] SCRN MAMM (CAD)W/BEATRIZ BILAT MR#: [id number] Acct: [id number] Name: JOSE QUINTANILLA LEWIS Rep #: [id number] : 1950 F 74 From: Dayanara Morgan MD PCP: Dr. Vivek Cheng MD Status: [facility] Study: SCRN MAMM (CAD)W/BEATRIZ BILAT Date of Exam: 01/19 Exam# [id number] Ordering Dr: Vivek Cheng MD EXAM: SCRN MAMM (CAD)W/BEATRIZ BILAT 02/06/2025 CLINICAL HISTORY: F, Age 74 y/o , SCREENING TECHNIQUE: Bilateral screening digital breast tomosynthesis with 2D and 3D images. Computer aided detection. COMPARISON: Prior exam(s) dated 09/09/2020, 07/03/2019. FINDINGS: TISSUE DENSITY: The breast tissue is heterogenously dense, which may obscure small masses. The mammogram demonstrates that the patient has dense breasts. Supplemental screening with whole breast ultrasound or MRI may be considered for further evaluation. Bilateral Breast Mammographic Findings: No significant masses, calcifications or other abnormalities are identified. BI/SCRN MAMM (CAD)W/BEATRIZ BILAT IMPRESSION: Right Breast: BIRADS 1 NEGATIVE. Left Breast: BIRADS 1 NEGATIVE. OVERALL FINAL ASSESSMENT: BIRADS 1 NEGATIVE. RECOMMENDATION: Routine annual follow-up in 1 Year A letter with findings and recommendations will be mailed to the patient. Reading Location: [id number] CC: Dr. Vivek Cheng MD Digital Media Designer: Signed Normal [facility] Absolute lymphocyte countOrd ered By: Vivek Cheng on 02-05-2025 Lymphocytes Auto (Unsp spec) [#/Vol] 1.25 10*3/uL 0.83-4.51 [facility] Absolute neutrophil countOrd ered By: Vivek Cheng on 02-05-2025 Neutrophils (Bld) [#/Vol] 3.7 10*3/uL 2.0-7.7 [facility] Anion gap in Serum or Plasma Ordered By: Vivek Cheng on 02-05-2025 Anion gap [Moles/Vol] 11 mmol/L 01-01 [facility] Automated lymphocyte count a s percentage of total leukocytesOrdered By: Vivek Cheng on 02-05-2025 Lymphocytes/100 WBC Auto (Unsp spec) 22.4 % [facility] BUN/creatinine ratioOrdered By: Vivek Cheng on 02-05-2025 Urea nitrogen/Creatinine [Mass ratio] 20.3 mg/mg High - [facility] Basophil percentageOrdered B y: Vivek Cheng on 02-05-2025 Basophils/100 WBC (Bld) 0.4 % 0- W [facility] Bilirubin, totalOrdered By: Vivek Cheng on 02-05-2025 Bilirubin [Mass/Vol] 0.42 mg/dL 0.00-1.30 [place] CBC W/Diff, Automatedon 01-18 Absolute Lymph 1.25 X10 3/uL Normal 0.83-4.51 [facility] Comment on above: Performed By: #### L 3410.9994, L100.0100, L3410.9992, L500.4050, L3410.9996, L501.9520, L509.8002, L503.0106, L506.1001, L506.0200 #### [facility] [address] [place] [address]. [place], [place], [id number] Absolute Neut 3.7 X10 3/uL Normal 2.0-7.7 [facility] Comment on above: Performed By: #### L 3410.9994, L100.0100, L3410.9992, L500.4050, L3410.9996, L501.9520, L509.8002, L503.0106, L506.1001, L506.0200 #### [facility] [address] [place], [address] (514) Basophils/100 WBC (Bld) 0.4 % Normal 0-1 [facility] Comment on above: Performed By: #### L 3410.9994, L100.0100, L3410.9992, L500.4050, L3410.9996, L501.9520, L509.8002, L503.0106, L506.1001, L506.0200 #### [facility] [address] [place], [address] (739) Eosinophils/100 WBC (Bld) 0.9 % Normal 0-5 [facility] Comment on above: Performed By: #### L 3410.9994, L100.0100, L3410.9992, L500.4050, L3410.9996, L501.9520, L509.8002, L503.0106, L506.1001, L506.0200 #### [facility] [address] [place], [address] (579) Erythrocyte distribution width (RBC) [Ratio] 13.6 % Normal 11.6-14.6 [facility] Comment on above: Performed By: #### L 3410.9994, L100.0100, L3410.9992, L500.4050, L3410.9996, L501.9520, L509.8002, L503.0106, L506.1001, L506.0200 #### [facility] [address] [place], [address] (578) Hematocrit (Bld) [Volume fraction] 38.0 % Normal 37-47 [facility] Comment on above: Performed By: #### L 3410.9994, L100.0100, L3410.9992, L500.4050, L3410.9996, L501.9520, L509.8002, L503.0106, L506.1001, L506.0200 #### [facility] [address] [place], [place], [id number] (003) Hemoglobin (Bld) [Mass/Vol] 12.4 g/dL Normal 12.0-15.0 [facility] Comment on above: Performed By: #### L 3410.9994, L100.0100, L3410.9992, L500.4050, L3410.9996, L501.9520, L509.8002, L503.0106, L506.1001, L506.0200 #### [facility] [address] [place], [place], [id number] (008) IG% 0.000 Normal 0.0-0.9 [facility] Comment on above: Result Comment: IG% - Immature Granulocytes (promyelocytes, myelocytes and metamyelocytes) > 1% indicates that a LEFT SHIFT is Present. Performed By: #### L 3410.9994, L100.0100, L3410.9992, L500.4050, L3410.9996, L501.9520, L509.8002, L503.0106, L506.1001, L506.0200 #### [facility] [address] [place], [place], [phone] ([address] Lymphocytes/100 WBC (Bld) 22.4 % Normal 19-41 [facility] Comment on above: Performed By: #### L 3410.9994, L100.0100, L3410.9992, L500.4050, L3410.9996, L501.9520, L509.8002, L503.0106, L506.1001, L506.0200 #### [facility] [address] [place], [address] MCH (RBC) [Entitic mass] 30.0 pg Normal 27.0-32.0 [facility] Comment on above: Performed By: #### L 3410.9994, L100.0100, L3410.9992, L500.4050, L3410.9996, L501.9520, L509.8002, L503.0106, L506.1001, L506.0200 #### [facility] [address] [place], [address] MCHC (RBC) [Mass/Vol] 32.6 g/dL Normal 32-36 [facility] Comment on above: Performed By: #### L 3410.9994, L100.0100, L3410.9992, L500.4050, L3410.9996, L501.9520, L509.8002, L503.0106, L506.1001, L506.0200 #### [facility] [address] [place], [address] MCV (RBC) [Entitic vol] 91.8 fL Normal 81-99 [facility] Comment on above: Performed By: #### L 3410.9994, L100.0100, L3410.9992, L500.4050, L3410.9996, L501.9520, L509.8002, L503.0106, L506.1001, L506.0200 #### [facility] [address] [place], [address] Monocytes/100 WBC (Bld) 9.8 % Normal 0-10 [facility] Comment on above: Performed By: #### L 3410.9994, L100.0100, L3410.9992, L500.4050, L3410.9996, L501.9520, L509.8002, L503.0106, L506.1001, L506.0200 #### [facility] [address] [place], [address] Neutrophils/100 WBC (Bld) 66.5 % Normal 47-70 [facility] Comment on above: Performed By: #### L 3410.9994, L100.0100, L3410.9992, L500.4050, L3410.9996, L501.9520, L509.8002, L503.0106, L506.1001, L506.0200 #### [facility] [address] [place], [address] Nucleated RBC (Bld) [#/Vol] 0 10*3/uL Normal 0-5 [facility] Comment on above: Performed By: #### L 3410.9994, L100.0100, L3410.9992, L500.4050, L3410.9996, L501.9520, L509.8002, L503.0106, L506.1001, L506.0200 #### [facility] [address] [place], [address] Platelet mean volume (Bld) [Entitic vol] 10.7 fL Normal 6.2-12.0 [facility] Comment on above: Performed By: #### L 3410.9994, L100.0100, L3410.9992, L500.4050, L3410.9996, L501.9520, L509.8002, L503.0106, L506.1001, L506.0200 #### [facility] [address] [place], [address] Platelets (Bld) [#/Vol] 245 10*3/uL Normal 150-450 [facility] Comment on above: Performed By: #### L 3410.9994, L100.0100, L3410.9992, L500.4050, L3410.9996, L501.9520, L509.8002, L503.0106, L506.1001, L506.0200 #### [facility] [address] [place], [address] RBC (Bld) [#/Vol] 4.14 10*6/uL Low 4.2-5.4 [facility] Comment on above: Performed By: #### L 3410.9994, L100.0100, L3410.9992, L500.4050, L3410.9996, L501.9520, L509.8002, L503.0106, L506.1001, L506.0200 #### [facility] [address] [place], [address] (654) RDW SD 46.3 fl High 35.1-43.9 [facility] Comment on above: Performed By: #### L 3410.9994, L100.0100, L3410.9992, L500.4050, L3410.9996, L501.9520, L509.8002, L503.0106, L506.1001, L506.0200 #### [facility] [address] [place], [address] (443) WBC (Bld) [#/Vol] 5.6 10*3/uL Normal 4.4-11.0 [facility] Comment on above: Performed By: #### L 3410.9994, L100.0100, L3410.9992, L500.4050, L3410.9996, L501.9520, L509.8002, L503.0106, L506.1001, L506.0200 #### [facility] [address] [place], [address] Carbon dioxide, total [Moles /volume] in Central venous bloodOrdered By: Vivek Cheng on 02-05-2025 CO2 [Moles/Vol] 25.8 mmol/L 21.0-32.0 [facility] Chloride assayOrdered By: Steven Cheng on 02-05-2025 Chloride [Moles/Vol] 104 mmol/L 98-108 [facility] Comprehensive Metabolic Prof ilon 02-05-2025 Albumin [Mass/Vol] 3.9 g/dL Normal 3.4-4.8 [facility] Comment on above: Performed By: #### L 3410.9994, L100.0100, L3410.9992, L500.4050, L3410.9996, L501.9520, L509.8002, L503.0106, L506.1001, L506.0200 #### [facility] [address] [place], [place], [id number] Albumin/Globulin [Mass ratio] 1.1 {ratio} Normal 0.9-2.4 [facility] Comment on above: Performed By: #### L 3410.9994, L100.0100, L3410.9992, L500.4050, L3410.9996, L501.9520, L509.8002, L503.0106, L506.1001, L506.0200 #### [facility] [address] [place], [place], [id number] ALK PHOS 76 U/L Normal 35-104 [facility] Comment on above: Performed By: #### L 3410.9994, L100.0100, L3410.9992, L500.4050, L3410.9996, L501.9520, L509.8002, L503.0106, L506.1001, L506.0200 #### [facility] [address] [place], [place], [id number] ALT [Catalytic activity/Vol] 11 U/L Normal <=34 [facility] Comment on above: Performed By: #### L 3410.9994, L100.0100, L3410.9992, L500.4050, L3410.9996, L501.9520, L509.8002, L503.0106, L506.1001, L506.0200 #### [facility] [address] [place], [address] AST [Catalytic activity/Vol] 18 U/L Normal <=31 [facility] Comment on above: Performed By: #### L 3410.9994, L100.0100, L3410.9992, L500.4050, L3410.9996, L501.9520, L509.8002, L503.0106, L506.1001, L506.0200 #### [facility] [address] [place], [address] Bilirubin [Mass/Vol] 0.42 mg/dL Normal 0.00-1.30 [place] Comment on above: Performed By: #### L 3410.9994, L100.0100, L3410.9992, L500.4050, L3410.9996, L501.9520, L509.8002, L503.0106, L506.1001, L506.0200 #### [facility] [address] [place], [place], [phone] ([phone] BUN/CRE 20.3 RATIO High 10-20 [facility] Comment on above: Performed By: #### L 3410.9994, L100.0100, L3410.9992, L500.4050, L3410.9996, L501.9520, L509.8002, L503.0106, L506.1001, L506.0200 #### [facility] [address] [place], [address] Calcium [Mass/Vol] 9.2 mg/dL Normal 7.6-11.0 [facility] Comment on above: Performed By: #### L 3410.9994, L100.0100, L3410.9992, L500.4050, L3410.9996, L501.9520, L509.8002, L503.0106, L506.1001, L506.0200 #### [facility] [address] [place], [address] Chloride [Moles/Vol] 104 mmol/L Normal 98-108 [place] Comment on above: Performed By: #### L 3410.9994, L100.0100, L3410.9992, L500.4050, L3410.9996, L501.9520, L509.8002, L503.0106, L506.1001, L506.0200 #### [facility] [address] [place], [place], [phone] ([phone]) CO2 [Moles/Vol] 25.8 mmol/L Normal 21.0-32.0 [facility] Comment on above: Performed By: #### L 3410.9994, L100.0100, L3410.9992, L500.4050, L3410.9996, L501.9520, L509.8002, L503.0106, L506.1001, L506.0200 #### [facility] [address] [place], [place], [id number] Creatinine [Mass/Vol] 0.61 mg/dL Low 0.70-1.20 [facility] Comment on above: Performed By: #### L 3410.9994, L100.0100, L3410.9992, L500.4050, L3410.9996, L501.9520, L509.8002, L503.0106, L506.1001, L506.0200 #### [facility] [address] [place], [address] GAP 11 Normal 5-15 [facility] Comment on above: Performed By: #### L 3410.9994, L100.0100, L3410.9992, L500.4050, L3410.9996, L501.9520, L509.8002, L503.0106, L506.1001, L506.0200 #### [facility] [address] [place], [address] GFR/1.73 sq M.predicted among non-blacks MDRD (S/P/Bld) [Vol rate/Area] 94 mL/min/{1.73_m2} Normal >60 [facility] Comment on above: Result Comment: mL/m in/1.73m2 CKD-EPI Creatinine Equation (2020) Performed By: #### L 3410.9994, L100.0100, L3410.9992, L500.4050, L3410.9996, L501.9520, L509.8002, L503.0106, L506.1001, L506.0200 #### [facility] [address] [place], [address] Globulin (S) [Mass/Vol] 3.6 g/dL Normal 2.2-4.2 [facility] Comment on above: Performed By: #### L 3410.9994, L100.0100, L3410.9992, L500.4050, L3410.9996, L501.9520, L509.8002, L503.0106, L506.1001, L506.0200 #### [facility] [address] [place], [address] Glucose [Mass/Vol] 89 mg/dL Normal 70-99 [facility] Comment on above: Performed By: #### L 3410.9994, L100.0100, L3410.9992, L500.4050, L3410.9996, L501.9520, L509.8002, L503.0106, L506.1001, L506.0200 #### [facility] [address] [place], [address] Potassium [Moles/Vol] 4.0 mmol/L Normal 3.3-5.1 [facility] Comment on above: Performed By: #### L 3410.9994, L100.0100, L3410.9992, L500.4050, L3410.9996, L501.9520, L509.8002, L503.0106, L506.1001, L506.0200 #### [facility] [address] [place], [place], [phone] (728) Sodium [Moles/Vol] 141 mmol/L Normal 133-145 [facility] Comment on above: Performed By: #### L 3410.9994, L100.0100, L3410.9992, L500.4050, L3410.9996, L501.9520, L509.8002, L503.0106, L506.1001, L506.0200 #### [facility] [address] [place], [address] T PROT 7.5 g/dL Normal 5.9-8.4 [facility] Comment on above: Performed By: #### L 3410.9994, L100.0100, L3410.9992, L500.4050, L3410.9996, L501.9520, L509.8002, L503.0106, L506.1001, L506.0200 #### [facility] [address] [place], [place], [phone] ([phone] Urea nitrogen [Mass/Vol] 12 mg/dL Normal 4-19 [facility] Comment on above: Performed By: #### L 3410.9994, L100.0100, L3410.9992, L500.4050, L3410.9996, L501.9520, L509.8002, L503.0106, L506.1001, L506.0200 #### [facility] [address] [place], [place], [phone] ([phone] Eosinophil percentageOrdered By: Vivek Cheng on 02-05-2025 Eosinophils/100 WBC (Bld) 0.9 % 0-5 [facility] Erythrocyte distribution wid th ratioOrdered By: Vivek Cheng on 02-05-2025 Erythrocyte distribution width (RBC) [Ratio] 13.6 % 11.6-14.6 [facility] Erythrocyte distribution wid th standard deviationOrdered By: Vivek Cheng on 02-05-2025 Erythrocyte distribution width (RBC) [Ratio] 46.3 fl High 35.1-43.9 [facility] Folate [Mass/volume] in Seru m or PlasmaOrdered By: Vivek Cheng on 02-05-2025 Folate [Mass/Vol] 3.73 ng/mL Low 4.60-34.80 [facility] Folates,Serum (Folic Acid)on 02-05-2025 FOLATES,SERUM 3.73 ng/mL Low 4.60-34.80 [facility] Comment on above: Order Comment: N Performed By: #### L 3410.9994, L100.0100, L3410.9992, L500.4050, L3410.9996, L501.9520, L509.8002, L503.0106, L506.1001, L506.0200 #### [facility] [address] [place], [address] Glomerular filtration rate ( GFR) estimation/1.73 sq m using serum, plasma, or whole bOrdered By: Vivek Cheng on 02-05-2025 GFR/1.73 sq M.predicted among non-blacks MDRD (S/P/Bld) [Vol rate/Area] 94 mL/min/{1.73_m2} >60 [facility] Comment on above: mL/min/1.73m2 CKD-EP I Creatinine Equation (2020) Hematocrit Auto (Bld) [Volum e fraction]Ordered By: Vivek Cheng 02-05-2025 Hematocrit (Bld) [Volume fraction] 38.0 % 37-47 [facility] Hemoglobin measurementOrdere d By: Vivek Cheng on 02-05-2025 Hemoglobin (Bld) [Mass/Vol] 12.4 g/dL 12.0-15.0 [facility] Immature granulocytes/100 WB C Auto (Bld)Ordered By: Vivek Cheng on 02-05-2025 Immature granulocytes/100 WBC (Bld) 0.000 % 0.0-0.9 [facility] Comment on above: IG% - Immature Granu locytes (promyelocytes, myelocytes and metamyelocytes) > 1% indicates that a LEFT SHIFT is Present. Laboratory - Chemistry and C hemistry - challengeOrdered By: Vivek Cheng on 02-05-2025 AST [Catalytic activity/Vol] 18 U/L <32 [facility] MCV (mean corpuscular volume ) determinationOrdered By: Vivek Cheng on 02-05-2025 MCV (RBC) [Entitic vol] 91.8 fL 81-99 [facility] Mean corpuscular hemoglobin (MCH) determinationOrdered By: Vivek Cheng on 02-05-2025 MCH (RBC) [Entitic mass] 30.0 pg 27.0-32.0 [facility] Mean corpuscular hemoglobin concentration (MCHC) determinationOrdered By: Vivek Cheng on 02-05-2025 MCHC (RBC) [Mass/Vol] 32.6 g/dL 32-36 [facility] Mean platelet volume determi nationOrdered By: Vivek Cheng on 02-05-2025 Platelet mean volume (Bld) [Entitic vol] 10.7 fL 6.2-12.0 [facility] Monocyte percentageOrdered B y: Vivek Cheng on 02-05-2025 Monocytes/100 WBC (Bld) 9.8 % 0-10 [facility] Neutrophil percentageOrdered By: Vivek Cheng on 02-05-2025 Neutrophils/100 WBC (Bld) 66.5 % 47-70 [facility] Nucleated red blood cell per centageOrdered By: Vivek Cheng on 02-05-2025 Nucleated RBC/100 WBC (Bld) [Ratio] 0 % 0-5 [facility] Platelet countOrdered By: Steven Cheng on 02-05-2025 Platelets (Bld) [#/Vol] 245 10*3/uL 150-450 [facility] Potassium measurement (mass/ volume)Ordered By: Vivek Cheng on 02-05-2025 Potassium (Unsp spec) [Mass/Vol] 4.0 mmol/L 3.3-5.1 [facility] RBC Auto (Bld) [#/Vol]Ordere d By: Vivek Cheng on 02-05-2025 RBC (Bld) [#/Vol] 4.14 10*6/uL Low 4.2-5.4 [facility] Serum creatinine measurement (mass/volume)Ordered By: Vivek Cheng on 02-05-2025 Creatinine [Mass/Vol] 0.61 mg/dL Low 0.70-1.20 [facility] Serum globulin measurementOr dered By: Vivek Cheng on 02-05-2025 Globulin (S) [Mass/Vol] 3.6 g/dL 2.2-4.2 [facility] Serum glucose measurement (m ass/volume)Ordered By: Vivek Cheng on 02-05-2025 Glucose [Mass/Vol] 89 mg/dL 70-99 [facility] Serum or plasma alanine guajardo otransferase (ALT) measurementOrdered By: Vivek Cheng on 02-05-2025 ALT [Catalytic activity/Vol] 11 U/L <35 [facility] Serum or plasma albumin brody urement (mass/volume)Ordered By: Vivek Cheng on 02-05-2025 Albumin [Mass/Vol] 3.9 g/dL 3.4-4.8 [facility] Serum or plasma albumin/glob ulin mass ratioOrdered By: Vivek Cheng on 02-05-2025 Albumin/Globulin [Mass ratio] 1.1 {ratio} 0.9-2.4 [facility] Serum or plasma alkaline janae sphatase measurementOrdered By: Vivek Cheng 02-05-2025 ALP [Catalytic activity/Vol] 76 U/L 35-104 [facility] Serum or plasma calcium brody urement (mass/volume)Ordered By: Vivek Cheng on 02-05-2025 Calcium [Mass/Vol] 9.2 mg/dL 7.6-11.0 [facility] Serum or plasma urea nitroge n measurement (mass/volume)Ordered By: Vivek Cheng on 02-05-2025 Urea nitrogen [Mass/Vol] 12 mg/dL 4-19 [facility] Sodium levelOrdered By: Vivek Cheng on 02-05-2025 Sodium [Moles/Vol] 141 mmol/L 133-145 [facility] Syphilis Antibodieson 2024 Syphilis Abs Non-Reactive Normal Nonreactive [facility] Comment on above: Performed By: #### L 3410.9994, L100.0100, L3410.9992, L500.4050, L3410.9996, L501.9520, L509.8002, L503.0106, L506.1001, L506.0200 #### [facility] [address] [place], [address] TSH DL <= 0.005 mIU/L QnOrde red By: Vivek Cheng on 02-05-2025 TSH Qn 1.900 uIU/mL 0.300-4.200 [facility] Thyroid Stim Hormone (TSH)on 02-05-2025 TSH 1.900 uIU/mL Normal 0.300-4.200 [facility] Comment on above: Performed By: #### L 3410.9994, L100.0100, L3410.9992, L500.4050, L3410.9996, L501.9520, L509.8002, L503.0106, L506.1001, L506.0200 #### [facility] [address] [place], [address] Total proteinOrdered By: Vivek Cheng on 02-05-2025 Protein [Mass/Vol] 7.5 g/dL 5.9-8.4 [facility] Vitamin B12on 02-05-2025 Cobalamin (Vitamin B12) [Mass/Vol] 1582 pg/mL High 180-914 [facility] Comment on above: Performed By: #### L 3410.9994, L100.0100, L3410.9992, L500.4050, L3410.9996, L501.9520, L509.8002, L503.0106, L506.1001, L506.0200 #### [facility] [address] [place], [place], [phone] Vitamin B12 ser/plasOrdered By: Vivek Cheng on 02-05-2025 Cobalamin (Vitamin B12) [Mass/Vol] 1582 pg/mL High 180-914 [facility] Vitamin D,25 Hydroxyon 02-05 Vitamin D 25-OH 58.2 ng/mL Normal 30-100 [facility] Comment on above: Result Comment: Ciera min D Status Deficiency: <20 ng/mL (50nmol/L) Insufficiency: 20-30 ng/mL (50-75 nmol/L) Sufficiency: 30-100 ng/mL (75-250 nmol/L) Toxicity: >100 ng/mL (>250 nmol/L) Performed By: #### L 506.1000, L501.9520, L100.0100, L500.4050 #### [facility] [address] [place], [address] White blood cell (WBC) count Ordered By: Vivek Cheng on 02-05-2025 WBC (Bld) [#/Vol] 5.6 10*3/uL 4.4-11.0 [facility] CBC W/Diff, Automatedon 01-0 Absolute Lymph 1.33 X10 3/uL Normal 0.83-4.51 [facility] Comment on above: Performed By: #### L 506.1000, L501.9520, L100.0100, L500.4050 #### [facility] [address] [place], [address] Absolute Neut 4.4 X10 3/uL Normal 2.0-7.7 [facility] Comment on above: Performed By: #### L 506.1000, L501.9520, L100.0100, L500.4050 #### [facility] [address] [place], [address] Basophils/100 WBC (Bld) 0.6 % Normal 0-1 [facility] Comment on above: Performed By: #### L 506.1000, L501.9520, L100.0100, L500.4050 #### [facility] [address] [place], [address] Eosinophils/100 WBC (Bld) 1.4 % Normal 0-5 [facility] Comment on above: Performed By: #### L 506.1000, L501.9520, L100.0100, L500.4050 #### [facility] [address] [place], [address] Erythrocyte distribution width (RBC) [Ratio] 12.7 % Normal 11.6-14.6 [facility] Comment on above: Performed By: #### L 506.1000, L501.9520, L100.0100, L500.4050 #### [facility] [address] [place], [address] Hematocrit (Bld) [Volume fraction] 42.0 % Normal 37-47 [facility] Comment on above: Performed By: #### L 506.1000, L501.9520, L100.0100, L500.4050 #### [facility] [address] [place], [address] Hemoglobin (Bld) [Mass/Vol] 13.5 g/dL Normal 12.0-15.0 [facility] Comment on above: Performed By: #### L 506.1000, L501.9520, L100.0100, L500.4050 #### [facility] [address] [place], [address] IG% 0.600 Normal 0.0-0.9 [facility] Comment on above: Result Comment: IG% - Immature Granulocytes (promyelocytes, myelocytes and metamyelocytes) > 1% indicates that a LEFT SHIFT is Present. Performed By: #### L 506.1000, L501.9520, L100.0100, L500.4050 #### [facility] [address] [place], [address] Lymphocytes/100 WBC (Bld) 20.2 % Normal 19-41 [facility] Comment on above: Performed By: #### L 506.1000, L501.9520, L100.0100, L500.4050 #### [facility] [address] [place], [address] MCH (RBC) [Entitic mass] 30.7 pg Normal 27.0-32.0 [facility] Comment on above: Performed By: #### L 506.1000, L501.9520, L100.0100, L500.4050 #### [facility] [address] [place], [address] MCHC (RBC) [Mass/Vol] 32.1 g/dL Normal 32-36 [facility] Comment on above: Performed By: #### L 506.1000, L501.9520, L100.0100, L500.4050 #### [facility] [address] [place], [address] MCV (RBC) [Entitic vol] 95.5 fL Normal 81-99 [facility] Comment on above: Performed By: #### L 506.1000, L501.9520, L100.0100, L500.4050 #### [facility] [address] [place], [address] Monocytes/100 WBC (Bld) 10.5 % High 0-10 [facility] Comment on above: Performed By: #### L 506.1000, L501.9520, L100.0100, L500.4050 #### [facility] [address] [place], [address] Neutrophils/100 WBC (Bld) 66.7 % Normal 47-70 [facility] Comment on above: Performed By: #### L 506.1000, L501.9520, L100.0100, L500.4050 #### [facility] [address] [place], [address] Nucleated RBC (Bld) [#/Vol] 0 10*3/uL Normal 0-5 [facility] Comment on above: Performed By: #### L 506.1000, L501.9520, L100.0100, L500.4050 #### [facility] [address] [place], [address] Platelet mean volume (Bld) [Entitic vol] 10.2 fL Normal 6.2-12.0 [facility] Comment on above: Performed By: #### L 506.1000, L501.9520, L100.0100, L500.4050 #### [facility] [address] [place], [address] Platelets (Bld) [#/Vol] 285 10*3/uL Normal 150-450 [facility] Comment on above: Performed By: #### L 506.1000, L501.9520, L100.0100, L500.4050 #### [facility] [address] [place], [address] RBC (Bld) [#/Vol] 4.40 10*6/uL Normal 4.2-5.4 [facility] Comment on above: Performed By: #### L 506.1000, L501.9520, L100.0100, L500.4050 #### [facility] [address] [place], [address] RDW SD 44.2 fl High 35.1-43.9 [facility] Comment on above: Performed By: #### L 506.1000, L501.9520, L100.0100, L500.4050 #### [facility] [address] [place], [address] WBC (Bld) [#/Vol] 6.6 10*3/uL Normal 4.4-11.0 [facility] Comment on above: Performed By: #### L 506.1000, L501.9520, L100.0100, L500.4050 #### [facility] [address] [place], [address] Comprehensive Metabolic Prof ilon 08-21-2024 Albumin [Mass/Vol] 3.0 g/dL Low 3.2-5.0 [facility] Comment on above: Performed By: #### L 506.1000, L501.9520, L100.0100, L500.4050 #### [facility] [address] [place], [address] Albumin/Globulin [Mass ratio] 0.7 {ratio} Low 0.9-2.4 [facility] Comment on above: Performed By: #### L 506.1000, L501.9520, L100.0100, L500.4050 #### [facility] [address] [place], [id number] ALK P 124 U/L High 45-117 [facility] Comment on above: Performed By: #### L 506.1000, L501.9520, L100.0100, L500.4050 #### [facility] [address] [place], [address] ALT [Catalytic activity/Vol] 21 U/L Normal 13-56 [facility] Comment on above: Performed By: #### L 506.1000, L501.9520, L100.0100, L500.4050 #### [facility] [address] [place], [address] AST [Catalytic activity/Vol] 19 U/L Normal 15-37 [facility] Comment on above: Performed By: #### L 506.1000, L501.9520, L100.0100, L500.4050 #### [facility] [address] [place], [address] Bilirubin [Mass/Vol] 0.30 mg/dL Normal 0.20-1.00 [facility] Comment on above: Result Comment: For patients on eltrombopag therapy, use of Dimension [place] TBIL is not recommended. Performed By: #### L 506.1000, L501.9520, L100.0100, L500.4050 #### [facility] [address] [place], [address] BUN/CRE 12.8 RATIO Normal 10-20 [facility] Comment on above: Performed By: #### L 506.1000, L501.9520, L100.0100, L500.4050 #### [facility] [address] [place], [address] CA,Total 8.9 mg/dL Normal 8.5-10.1 [facility] Comment on above: Performed By: #### L 506.1000, L501.9520, L100.0100, L500.4050 #### [facility] [address] [place], [address] Chloride [Moles/Vol] 106 mmol/L Normal 98-107 [facility] Comment on above: Performed By: #### L 506.1000, L501.9520, L100.0100, L500.4050 #### [facility] [address] [place], [address] CO2 [Moles/Vol] 31.0 mmol/L Normal 21.0-32.0 [facility] Comment on above: Performed By: #### L 506.1000, L501.9520, L100.0100, L500.4050 #### [facility] [address] [place], [address] Creatinine [Mass/Vol] 0.78 mg/dL Normal 0.55-1.02 [facility] Comment on above: Result Comment: The validity of the calculated GFR GFRAA in patients over 70 years has not been determined. Clinical correlation is essential. Performed By: #### L 506.1000, L501.9520, L100.0100, L500.4050 #### [facility] [address] [place], [address] EST GFR - AA 93 mL/min Normal >60 [facility] Comment on above: Result Comment: Afri can [place] GFR Calc Performed By: #### L 506.1000, L501.9520, L100.0100, L500.4050 #### [facility] [address] [place], [address] GAP 4 Low 5-15 [facility] Comment on above: Performed By: #### L 506.1000, L501.9520, L100.0100, L500.4050 #### [facility] [address] [place], [address] GFR/1.73 sq M.predicted among non-blacks MDRD (S/P/Bld) [Vol rate/Area] 77 mL/min/{1.73_m2} Normal >60 [facility] Comment on above: Result Comment: Non- GFR Calc Performed By: #### L 506.1000, L501.9520, L100.0100, L500.4050 #### [facility] [address] [place], [address] Globulin (S) [Mass/Vol] 4.6 g/dL High 2.2-4.2 [facility] Comment on above: Performed By: #### L 506.1000, L501.9520, L100.0100, L500.4050 #### [facility] [address] [place], [address] Glucose [Mass/Vol] 95 mg/dL Normal 74-106 [facility] Comment on above: Performed By: #### L 506.1000, L501.9520, L100.0100, L500.4050 #### [facility] [address] [place], [address] Potassium [Moles/Vol] 3.9 mmol/L Normal 3.5-5.1 [facility] Comment on above: Performed By: #### L 506.1000, L501.9520, L100.0100, L500.4050 #### [facility] [address] [place], [address] Sodium [Moles/Vol] 141 mmol/L Normal 136-145 [facility] Comment on above: Performed By: #### L 506.1000, L501.9520, L100.0100, L500.4050 #### [facility] [address] [place], [address] T PROT 7.6 g/dL Normal 6.4-8.2 [facility] Comment on above: Performed By: #### L 506.1000, L501.9520, L100.0100, L500.4050 #### [facility] [address] [place], [address] Urea nitrogen [Mass/Vol] 10 mg/dL Normal 7-18 [facility] Comment on above: Performed By: #### L 506.1000, L501.9520, L100.0100, L500.4050 #### [facility] [address] [place], [address] Thyroid Stim Hormone (TSH)on 08-21-2024 TSH 1.340 uIU/mL Normal 0.358-3.740 [facility] Comment on above: Performed By: #### L 506.1000, L501.9520, L100.0100, L500.4050 #### [facility] [address] [place], [address] Vitamin D,25 Hydroxyon 08-21 Vitamin D 25-OH 59.2 ng/mL Normal [facility] Comment on above: Result Comment: Ciera min D 25(OH) Status Range Deficiency <20 ng/mL (50nmol/L) Insufficiency 20 - 30 ng/mL (50 - 75 nmol/L) Sufficiency 30 - 100 ng/mL (75 - 250 nmol/L) Toxicity >100 ng/mL (>250 nmol/L) Performed By: #### L 506.1000, L501.9520, L100.0100, L500.4050 #### [facility] [address] [place], [address] MR/BMSAndres 04-15-2024 MR/BMS.BV[facility]ierney [facility] [address] [place] [address] OFFICE VISIT Date of Service: 04/15/24 MR#: [id number] Acct: [id number] Name: JOSE QUINTANILLA LEWIS Rep #: [id number] : 1950 Provider: ARIAS Pemberton Age/Sex: 73/F Location: [facility] Status: Signed Intake Vital Signs 03/05/24 10:06 [...] aspirin and ibuprofen daily. HPI HPI HPI: JOSE QUINTANILLA, is a 73 F who presents [...] No senso (more content not included)... Normal [facility] Encounters Encounter Date Encounter Type Care Provider Facility Start: 02-06-2025 End: 02-06-[address] Vivek Cheng MD Work Phone: [facility] Work Phone: Start: 02-06-2025 End: 02-06-[address] Vivek Cheng MD -Outpatient Breast Imaging Work Phone: Start: 02-05-2025 End: 02-06-[address] Vivek Cheng MD Work Phone: [facility] Work Phone: Start: 02-05-2025 End: 02-05-[address] Vivek Cheng MD -Laboratory Work Phone: Start: 02-05-2025 End: 02-05-2025 ambulatory Vivek Cheng Facility:[facility] Start: 08-21-2024 End: 08-21-2024 ambulatory Vivek Cheng Facility:[facility] Start: 04-15-2024 End: 04-15-2024 ambulatory Vivek Cheng Facility:[facility] Start: 11-16-[address] KHADIJAH ALTAMIRANO [facility] Procedures Date Procedure Procedure Detail Performing Clinician Start: 02-06-[address] Vivek Cheng MD Work Phone: Start: 02-05-[address] Vivek Cheng MD Work Phone: Comment on above: Test Ordered: [id number] Beta Amyloid 42/40 RatioTest(s) 885856-Uksl-suwgocb 42/40 Ratio; 695054-Rnlc-tiuufih 42; 596894-Pzkw-domlgsr 40was developed and its performance characteristicsdetermined by [employer]. It has not been cleared or approvedby the Food and Drug Administration.Beta-amyloid 42/40 Ratio 0.096 [L ] BN Reference Range: >0.102Beta-amyloid 42 15.54 pg/mL BN Reference Range: .Beta-amyloid 40 161.77 pg/mL Reference Range: .Plasma beta-amyloid 1-42/1-40 ratios less than or equal to0.102 suggest a higher probability of a patient beingclinically diagnosed with Alzheimer's Disease (AD), whilevalues above 0.102 suggest a lower probability of ADdiagnosis. Precise plasma testing of Beta Amyloid 42 andBeta Amyloid 40 has demonstrated comparable effectivenessto traditional cerebrospinal fluid testing and amyloidpositron emission tomography (PET) scans. When assessingthe risk of AD pathology as the underlying cause for mildcognitive impairment (MCI) or dementia, it is importantto consider various factors such as medical and familyhistory, nutritional deficiency biomarkers, neuroimaging,and physical, neurological, and neuropsychologicalexaminations.Methodology: Sysmex Chemiluminescence Enzyme Immunoassay(CLEIA). Values obtained with differentmethods cannot be used interchangeably.Performed at: [address] [id number] Director: Binu Sandoval MD, Phone: [phone] at: [address] [id number] Director: Luis Robertson PhD, Phone: [phone] Test Ordered: [id number] p-nbi746Ktkb(s) 170596-r-xqz773ssc developed and its performance characteristicsdetermined by [employer]. It has not been cleared or approvedby the Food and Drug Administration.p-fsj093 0.29 [H ] pg/mL Reference Range: 0.00-0.18 Clinical cutoff value was established using samples from a patientcohort characterized with amyloid PET data. A p-cbd626 value of >0.18is a reported surrogate marker for beta amyloid pathology, and can beused to facilitate biological identification of Alzheimer's disease(1). p-yed615 has also been used in clinical trials to monitorpatients on anti-amyloid therapy (2,3). Test performed by [employer] chemiluminescent enzymeimmunoassay (CLEIA). Values obtained with different methods cannot beused interchangeably. The validated limit of quantification is 0.06pg/mL. Assay detection limit is 0.03 pg/mL.Footnotes Comment L9 Reference Range: .1. Rahul Arora, et al. "Diagnostic Accuracy of aPlasma Phosphorylated Tau 217 Immunoassay for AlzheimerDisease Pathology." SHANNON neurology (2023).2. Rahul Arora, et al. "Differential roles ofA42/40, p-ptv499 and p-lpu558 for Alzheimer's trialselection and disease monitoring." Nature medicine 28.12(2021): 5210-0387. 3. Andrew MJ, Karla M, Anabell SC, etal. "Association of Donanemab Treatment With ExploratoryPlasma Biomarkers in Early Symptomatic Alzheimer Disease: ASecondary Analysis of the TRAILBLAZER-ALZ RandomizedClinical Trial". SHANNON Neurol. 2021;79(12):5618-4588.Performed at: - [facility] [address] [place] [id number] Director: Ezequiel Gomes MD, Phone: [phone] at: [facility] [id number] Director: Luis Robertson PhD, Phone: [phone] Start: 02-05-2025 Serologic test for syphilis Dr. Vivek Cheng MD Work Phone: Start: 02-05-2025 Vitamin D, 25-hydroxy measurement Dr. Steven Cheng MD Work Phone: Comment on above: Vitamin D StatusDeficiency: <20 ng/mL (5 0nmol/L)Insufficiency: 20-30 ng/mL (50-75 nmol/L)Sufficiency: 30-100 ng/mL (75-250 nmol/L)Toxicity: >100 ng/mL (>250 nmol/L) Plan of Treatment Date Care Activity Detail Author Start: 02-05-[address] [facility] Payers Date Payer Category Payer Self-pay 2024 Private Health Insurance [id number] 2024 Self-pay [id number] 2015 Medicare [id number] Unknown [id number] 2.16.8 [id number] Unknown [id number] 2.16.8 [id number] Unknown [id number] 2.16.8 [id number] Unknown [id number] 2.16.8 [id number] Social History Date Type Detail Facility Start: 02-13-[facility]24 [facility] Start: 1950 Sex Assigned At Female [facility] Evaluation note Note Date & Type Note Facility Evaluation note No assessment information availa ble [facility] Work Phone: Reason for referral (narrative) Note Date & Type Note Facility Reason for referral (narrative) No reason for referral information available [facility] Work Phone: Summary Purpose Family History No Family History Records Found Relationship Condition Age at Onset Recorded Date/T eugene mother Arthritis Unknown Diabetes mellitus Unknown Hypertension Unknown father Malignant neoplasm of colon Unknown Cardiac disease Unknown sister Arthritis Unknown Advance Directives No Advanced Directives Records Found Advance Directive Response Recorded Date/ Time Advance Directives No February 24 10:08am Chief Complaint and Reason for Visit Chief Complaint Admit Date SCREENING February 06, 2025 7:13 am Additional Source Comments INFORMATION SOURCE (unrecogn ized section and content) DATE CREATED AUTHOR 11/18/2021 [facility] DATE CREATED AUTHOR AUTHOR'S ALEXANDR ATION 03/07/2025 [facility] Care Teams (unrecognized sec tion and content) Team Status: Active Member Role Status Dates Dr. Vivek Cheng MD Primary Care Provider Active Team Status: Inactive Member Role Status Dates Dr. Vivek Cheng MD Primary Care Provider Active Start: February 05, 2025 End: February 05, 2025 Dr. Vivek Cheng MD Attending Provider Active Start: February 05, 2025 End: February 05, 2025 Dr. Vivek Cheng MD Referring Provider Active Start: February 05, 2025 End: February 05, 2025 Team Status: Active Member Role Status Dates Dr. Vivek Cheng MD Primary Care Provider Active Start: February 06, 2025 Dr. Vivek Cheng MD Attending Provider Active Start: February 06, 2025 Dr. Vivek Cheng MD Referring Provider Active Start: February 06, 2025 Team Status: Inactive Member Role Status Dates Dr. Vivek Cheng MD Primary Care Provider Active Start: February 06, 2025 End: February 06, 2025 Dr. Vivek Cheng MD Attending Provider Active Start: February 06, 2025 End: February 06, 2025 Dr. Vivek Cheng MD Referring Provider Active Start: February 06, 2025 End: February 06, 2025 Goals (unrecognized section and content) Goals may be documented in a n alternate sectionGoals may be documented in an alternate section FOR RECORDS PERTAINING TO PATIENTS WHO ARE [...] BE BASED ON THE PRIMARY CLINICAL RECORDS. [employer] provides no warranty or guarantee of the accuracy or completeness of information in this document.
--- NOTE | 2025-03-14 07:31 | MRI_ITS ---
PROCEDURE: BRAIN WITHOUT CONTRAST 03/14/2025 REASON FOR EXAM: MILD COGNITIVE IMPAIRMENT TECHNIQUE: BRAIN WITHOUT CONTRAST Multiplanar and multisequence images were obtained. COMPARISON: None. FINDINGS: Mild global parenchymal atrophy. Periventricular white matter T2/FLAIR hyperintense foci likely representing chronic microvascular ischemia. No evidence of acute hemorrhage or infarction. No extra-axial blood or fluid collections. The paranasal sinuses are clear. The mastoid air cells are well aerated. MRI/Brain without Contrast IMPRESSION: No acute intracranial abnormality. Reading Location: [id number]
== END | disposition home or self-care (01) ==
LOC: MRI 07:06
PROVIDERS: PCP Family Medicine Geriatric Medicine; Referring Provider Family Medicine Geriatric Medicine; Visit Provider Family Medicine Geriatric Medicine
DX: Z12.31 Encounter for screening mammogram for malignant neoplasm of breast (principal); G31.84 Mild cognitive impairment of uncertain or unknown etiology
CPT/HCPCS: 70551

== ENCOUNTER 2025-07-09 05:14 | Day surgery (SDC) | payer MEDICARE, OTHER, SELFPAY ==
[2025-07-09] VITALS (9 sets, daily range): BP systolic 78–116; BP diastolic 50–72; PULSE 55–65; RESP 16; TEMP 36.1–36.4; O2SAT 94–100; BMI 31.6
--- OUTSIDE RECORDS SUMMARY | 2025-07-09 05:55 | XMS RPT_ITS | CCD ---
Author Organization [facility] Care Team Providers Care Coyote Hunter Name Role Phone EVELIA, DR KHADIJAH Washburn Attending Unavaila ble EVELIA, DR KHADIJAH Washburn Primary Care Unavaila ble EVELIA, DR KHADIJAH Washburn Admitting Unavaila ble Prosper JIN, Dr. Vivek Walker Primary Care Provider Prosper JIN, Dr. Vivek Walker Attending Provider Prosper JIN, Dr. Vivek Walker Referring Provider Prosper, Vivek Chi Primary Care Unavailable Kalie Alexis Attending Unavailable Prosper, Vivek Chi Referring Unavailable Prosper, Vivek Chi Referring Unavailable Prosper, Vivek Chi Primary Care Unavailable Prosper, Vivek Chi Attending Unavailable Prosper, Vivek Chi Primary Care Unavailable Prosper, Vivek Chi Attending Unavailable Prosper, Vivek Chi Referring Unavailable Prosper, Vivek Chi Primary Care Unavailable Prosper, Vivek Chi Attending Unavailable Prosper, Vievk Chi Referring Unavailable Prosper, Vivek Chi Primary Care Unavailable Prosper, Vivek Chi Attending Unavailable Prosper, Vivek Chi Primary Care Unavailable Friend, Seymour Attending Unavailable Medications Current Medications Medication Drug Class(es) Dates Sig (Normalized) Sig (Original) aspirin 81 mg delayed release oral tablet (3 sources) Platelet Aggregation Inhibitor, Nonsteroidal Anti-inflammatory Drug Start: 02-13-2024 Aspirin (Adult Low Dose Aspirin) 81 mg tablet,delayed release (DR/EC) Active 81 mg PO DAILY February 13, 2024 12:00am biotin 5 mg disintegrating oral tablet (3 sources) Start: 07-10-2017 take 1 tablet by mouth once daily Biotin 5,000 MCG tablet,disintegr ating Active 5000 ug PO DAILY July 10, 2017 1:00am Completed/Discontinued Medications Medication Drug Class(es) Dates Sig (Normalized) Sig (Original) acetaminophen 325 mg / oxyCODONE hydrochloride 5 mg oral tablet (3 sources) Opioid Agonist Start: 07-22-2017 End: 12-23-2021 Oxycodone-Acetamin ophen 1 TABLET tablet Discontinued 1 - 2 {tbl} PO EVERY 6 HOURS NEEDED as needed for Pain July 22, 2017 1:00am December 23, 2021 8:03am ibuprofen 600 mg oral tablet (3 sources) Nonsteroidal Anti-inflammatory Drug Start: 07-22-2017 End: 04-15-2024 Ibuprofen 600 MG tablet Discontinued 600 mg PO NEEDED as needed for Pain July 22, 2017 1:00am April 15, 2024 9:12am Nytipspvrmss-Jigy-Db lic Acid (Hm Complete Women Tablet) 1 EACH tablet (3 sources) Start: 07-10-2017 End: 04-15-2024 Multivitamin-Iron- Folic Acid (Hm Complete Women Tablet) 1 EACH tablet Discontinued 1 NMA PO DAILY July 10, 2017 1:00am April 15, 2024 9:12am Turmeric extract (3 sources) Start: 12-23-2021 End: 04-15-2024 Turmeric 400 mg capsule Discontinued mg PO December 23, 2021 12:00am April 15, 2024 9:12am Problems Active Problems Problem Classification Problem Date Documented Da te Episodic/Chronic Fracture of upper limb (3 sources) Fracture of distal end of right radius; Translations: [Unspecified fracture of the lower end of right radius, initial encounter for closed fracture] 12-23-2021 Episodic Neoplasms of unspecified nature or uncertain behavior (3 sources) Neoplastic disease of uncertain behavior; Translations: [Neoplasm of uncertain behavior of connective and other soft tissue] 02-13-2024 Episodic Nutritional deficiencies (1 source) Vitamin D deficiency, unspecified; Translations: [Vitamin D deficiency, unspecified] Onset: 03-04-2025 Chronic Other connective tissue disease (3 sources) Swelling of right lower limb; Translations: [Other specified soft tissue disorders] 03-05-2024 Episodic Ovarian cyst (3 sources) Cyst of ovary; Translations: [Unspecified ovarian cyst, left side] 07-23-2017 Episodic Varicose veins of lower extremity (3 sources) 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; Translations: [Varicose veins of right lower extremity with other complications] 03-05-2024 Episodic Past or Other Problems Problem Classification Problem Date Documented Da te Episodic/Chronic Other screening for suspected conditions (not mental disorders or infectious disease) (1 source) Encounter for screening mammogram for malignant neoplasm of breast; Translations: [Encounter for screening mammogram for malignant neoplasm of breast] Onset: 03-18-2025 Episodic Results Test Name Value Interpretation Reference Range Facility Gastroenterology Visit Repor ton 06-15-2025 Gastroenterology Visit Report [facility] Gastroenterology [address] [place] [address] OFFICE VISIT Date of Service: 06/15/25 MR#: [id number] Acct: [id number] Name: JOSE QUINTANILLA LEWIS Rep #: [id number] : 1950 Provider: OPAL haines Age/Sex: 74/F Location: [facility] [place] Status: Signed Intake Vital Signs 03/05/24 10:06 06/15/25 10:14 Height 5 ft 6 in 5 ft 6 in Weight: 197 lb 6 oz BMI 31.8 BP 113/75 Respiration 16 Pulse 63 Temp 97.8 F Temp Source Temporal Pulse Oximetry (%) 95 Oxygen Delivery Method room air Intake Visit Reasons: BLOOD IN STOOL 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 9 gram oral mL soln (Suflave) Have you fallen in the past year?: [facility] History of fracture of clavicle [...] takes aspirin and ibuprofen daily. HPI HPI Chief Complaint: establishing care Details: JOSE QUINTANILLA, is a 74 F who presents to the office today for blood in stool. - dark blood - on outside of stool, intermittent over the past several months, straining with BM - seen in office today with her daughter Arlen - denies any abdominal or rectal pain - 10lbs weight loss in the past 4 months, intentional - Colonoscopy - per patient a few years ago, uncertain of the findings - Father with colon CA in his 80's - lives alone - prepares her own meals - she continues to drive ROS Const Constitutional: No fatigue, fever(s) or weight change ENT ENT: No difficulty swallowing Gastro GI: Positive for constipation and Blood in stool; No abdominal pain, belching, bloating, change in bowel habits, change in stool character, coffee ground emesis, cramping, diarrhea, heartburn, difficulty swallowing, feeling full early, excessive flatus, incontinent of stools, Vomiting blood/hematemesis, loose stools, Black,tarry stools, nausea/dyspepsia, pain with swallowing, vomiting or other Musc Musculoskeletal: No joint pain Skin Skin: No yellowing of the eye or itchy eyes Psych Psychiatric: No anxiety and No depression Endo Endocrine: No fatigue or weight change Aller/Imm Allergy/Immunologic: No itchy eyes Kameron/Lymp Hematologic/Lymphatic : No easy bleeding or easy bruising Exam Const General: cooperative, healthy appearing, no acute distress and well developed Nutritional Appearance: average body habitus and well nourished Orientation: alert and oriented x3 HENMT Head: normocephalic Ears: hearing grossly normal bilaterally Mouth: moist mucous membranes Eyes Conjunctivae: conjunctivae normal Sclera: sclerae normal Neck Neck: normal visual inspection, full ROM and trachea midline Resp Effort Inspection: normal respiratory effort, able to speak in complete sentences and symmetric chest movement GI Inspection: normal to inspection Auscultation: normal bowel sounds Palpation: soft and no hepatosplenomegaly Rectal Exam: deferred Neuro General: patient alert and patient oriented x3 Cranial Nerves: other (CN's grossly intact, non-focal exam) Cognition: normal cognition Speech: speech normal Gait: normal gait Psych Appearance: grossly normal and well kempt Affect: normal affect Attitude: cooperative Thought Process: normal Assessment and Plan Assessment and Plan (1) Rectal bleeding: Status: Acute Medications: New peg 3350-sod sulf,lrvl-ewu-odv 178.7-7.3-0.5 gram (Suflave) Take as directed for split dose bowel prep 2 mL 0RF Plan 74-year-old female with a history of memory impairment presenting with rectal bleeding. The bleeding appears to be chronic, with self-reported dark and stringy characteristics and current symptoms (more content not included)... Normal [facility] Magnetic resonance imaging r eportOrdered By: Aryan Gerber on 03-15-[address] [facility] Imaging Services [address] [place] [address] Brain without Contrast MR#: [id number] Acct: [id number] Name: JOSE QUINTANILLA LEWIS Rep #: [id number] : 1950 F 74 From: Stew Gerber MD PCP: Dr. Vivek Cheng MD Status: REG C Study:Brain without Contrast Date of Exam: 03/14/25 Exam# [id number] Ordering Dr: Vivek Cheng MD PROCEDURE: BRAIN WITHOUT CONTRAST 03/14/2025 REASON FOR EXAM: MILD COGNITIVE IMPAIRMENT TECHNIQUE: BRAIN WITHOUT CONTRAST Multiplanar and multisequence images were obtained. COMPARISON: None. FINDINGS: Mild global parenchymal atrophy. Periventricular white matter T2/FLAIR hyperintense foci likely representing chronic microvascular ischemia. No evidence of acute hemorrhage or infarction. No extra-axial blood or fluid collections. The paranasal sinuses are clear. The mastoid air cells are well aerated. MRI/Brain without Contrast IMPRESSION: No acute intracranial abnormality. Reading Location: [id number] CC: Dr. Vivek Cheng MD ~ [address] Reporter: Signed [facility] Brain without Contraston Brain without Contrast [facility] Imaging Services [address] [place], [place] [address] Brain without Contrast MR#: [id number] Acct: [id number] Name: JOSE QUINTANILLA Rep #: [id number] : 1950 F 74 From: Aryan Gerber MD PCP: Dr. Vivek Cheng MD Status: REG CLI Study: Brain without Contrast Date of Exam: 03/14/25 Exam# [id number] Ordering Dr: Vivek Cheng MD PROCEDURE: BRAIN WITHOUT CONTRAST 03/14/2025 REASON FOR EXAM: MILD COGNITIVE IMPAIRMENT TECHNIQUE: BRAIN WITHOUT CONTRAST Multiplanar and multisequence images were obtained. COMPARISON: None. FINDINGS: Mild global parenchymal atrophy. Periventricular white matter T2/FLAIR hyperintense foci likely representing chronic microvascular ischemia. No evidence of acute hemorrhage or infarction. No extra-axial blood or fluid collections. The paranasal sinuses are clear. The mastoid air cells are well aerated. MRI/Brain without Contrast IMPRESSION: No acute intracranial abnormality. Reading Location: [id number] CC: Dr. Vivek Cheng MD [address] Reporter: Signed Normal [facility] L3410.9992on 02-13-2025 [facility] Misc. COMMENT Normal . [facility] Comment on above: Order Comment: [id number] 0APOE WB LAV RT Result Comment: Test Ordered: 599033 APOE Alzheimer's Risk Methodology: Comment UY Reference Range: . Patient DNA is assayed for the APOE genotype by PCR amplification of a specific region in exon 4 of the APOE gene followed by digestion with restriction enzyme Grainer Machine I and separation of fragments by polyacrylamide [...] For inquiries or genetic consultation, please call [facility] at . Comment: Comment UY Reference Range: [...] the APOE4 variant and by approximately 10 dz66-pvce for individuals with two copies of this [...] developed and its performance characteristics determined by [facility]. It has not been cleared or approved by the Food and Drug Administration. The FDA has determined that such clearance or approval is not necessary. REFERENCES Fadumo Gutierrez et al. Sex modifies the APOE-related risk of developing Alzheimer disease. Annal Neurol 2014;75(4):563-573 Roby BARRIENTOS. Alzheimer Disease Overview. [employer] (internet). Tino VAZQUEZ et al., editors. [facility]: [facility], [place], [place]. Last revised 2014. Bob JS et al. Genetic counseling and testing for Alzheimer disease: Joint practice guidelines of the [place] [employer] and the National Society of Genetic Counselors. Radha in Med 2011;13(6597-605. Magda AGUIRRE. Apolipoprotein E: Implications for AD neurobiology, epidemiology and risk assessment. Neurobiology of Aging 2011;32:778-790 Performed at: [facility] [address] (more content not included)... Performed By: #### L 506.1000, L501.9520, L100.0100, L500.4050 #### [facility] [address] [place], [address] L3410.9994on 02-10-2025 [facility] Mis. [address] [facility] Comment on above: Order Comment: [id number] 5Bet Amyloid TALL LAV PLASMA FZ Result Comment: Test Ordered: [id number] Beta Amyloid 42/40 Ratio Test(s) 113356-Afon-ucvdnql 42/40 Ratio; 107028- Beta-amyloid 42; 112322-Nftj-ullcxlx 40 was developed and its performance characteristics determined by [facility]. It has not been cleared or approved by the Food and Drug Administration. Beta-amyloid 42/40 Ratio 0.096 [L ] Reference Range: >0.102 Beta-amyloid 42 15.54 pg/mL [...] and physical, neurological, and neuropsychological examinations. Methodology: [employer] Chemiluminescence Enzyme Immunoassay (CLEIA). Values obtained with different methods cannot be used interchangeably. Performed at: [address] [id number] Behavior Analyst: Binu Sandoval MD, Phone: [phone] Performed at: [address] [id number] Behavior Analyst: Luis Robertson PhD, Phone: [phone] Performed By: #### L 506.1000, L513.9102, L100.0100, L500.4050 #### [facility] [address] [place] [address]. [place], [address] L3410.9996on 02-10-2025 [facility]. [address] [facility] Comment on above: Order Comment: [id number] 0P-[id number] TALL LAV PLASMA FZ Result Comment: Test Ordered: [id number] p-dcs498 Test(s) 522889-b-nrs413 was developed and its performance characteristics determined by [employer]. It has not been cleared or approved by the Food and Drug Administration. p-ebc190 0.29 [H ] pg/mL L9 Reference Range: 0.00-0.18 Clinical cutoff value was established using samples from a patient cohort characterized with amyloid PET data. A p-jfi952 value of >0.18 is a reported surrogate marker for beta amyloid pathology, and can be used to facilitate biological identification of Alzheimer's disease (1). p-ozq502 has also been used in clinical trials to monitor patients on anti-amyloid therapy (2,3). Test performed by [employer] chemiluminescent enzyme immunoassay (CLEIA). Values obtained with different methods cannot be used interchangeably. The validated limit of quantification is 0.06 pg/mL. Assay detection limit is 0.03 pg/mL. Footnotes Comment L9 Reference Range: . 1. Rahul Arora, et al. Diagnostic Accuracy of a Plasma Phosphorylated Tau 217 Immunoassay for Alzheimer Disease Pathology. SHANNON neurology (2023). 2. Rahul Arora, et al. Differential roles of A42/40, p-dcu369 and p-qba613 for Alzheimer's trial selection and disease monitoring. Nature medicine 28.12 (2021): 6897-4266. 3. Andrew CR, Karla M, Anabell SC, et al. Association of Donanemab Treatment With Exploratory Plasma Biomarkers in Early Symptomatic Alzheimer Disease: A Secondary Analysis of the TRAILBLAZER-ALZ Randomized Clinical Trial. SHANNON Neurol. 2021;79(12):9710-8175. Performed at: L9 - [employer] [address] [place] [id number] Behavior Analyst: Ezequiel Gomes MD, Phone: [phone] Performed at: - [address] [id number] Behavior Analyst: Luis Robertson PhD, Phone: [phone] Performed By: #### L 506.3843, X868.9255, L100.7344, Q455.2899 #### [facility] [address] [place] [address]. [place], [address] Breast imaging reportOrdered By: Dayanara Morgan on 02-06-[address] [facility] Imaging Services [address] [place] [address] SCRN MAMM (CAD)W/BEATRIZ BILAT MR#: [id number] Acct: [id number] Name: JOSE QUINTANILLA LEWIS Rep #: [id number] : 1950 F 74 From: Deborah Morgan MD PCP: Dr. Vivek Cheng MD Status: REG C Study:SCRN MAMM (CAD)W/BEATRIZ BILAT Date of Exa m: 02/06/25 Exam# [id number] Ordering Dr: Vivek Cheng MD EXAM: SCRN [...] be mailed to the patient. Reading Location: [facility] CC: Dr. Vivek Cheng MD ~ [address] Reporter: Signed [facility] SCRN MAMM (CAD)W/BEATRIZ BILATo n 02-06-2025 SCRN MAMM (CAD)W/BEATRIZ BILAT [facility] Imaging Services [address] [place], [place] [address] SCRN MAMM (CAD)W/BEATRIZ BILAT MR#: [id number] Acct: [id number] Name: JOSE QUINTANILLA ELWIS Rep #: [id number] : 1950 F 74 From: Dayanara Mogran MD PCP: Dr. Vivek Cheng MD Status: REG CLI Study: SCRN MAMM (CAD)W/BEATRIZ BILAT Date of Exam: 01/19 Exam# [id number] Ordering Dr: Vivek Cheng MD EXAM: SCRN [...] be mailed to the patient. Reading Location: [facility] CC: Dr. Vivek Cheng MD [address] Reporter: Signed Normal [facility] Absolute lymphocyte countOrd ered By: Vivek Cheng on 02-05-2025 Lymphocytes Auto (Unsp spec) [#/Vol] 1.25 10*3/uL 0.83-4.51 [facility] Absolute neutrophil countOrd ered By: Vivek Cheng on 02-05-2025 Neutrophils (Bld) [#/Vol] 3.7 10*3/uL 2.0-7.7 [facility] Anion gap in Serum or Plasma Ordered By: Vivek Cheng on 02-05-2025 Anion gap [Moles/Vol] 11 mmol/L 5-15 [facility] Automated lymphocyte count a s percentage of total leukocytesOrdered By: Vivek Cheng on 02-05-2025 Lymphocytes/100 WBC Auto (Unsp spec) 22.4 % [facility] BUN/creatinine ratioOrdered By: Vivek Cheng on 02-05-2025 Urea nitrogen/Creatinine [Mass ratio] 20.3 mg/mg High - [facility] Basophil percentageOrdered B y: Vivek Cheng on 02-05-2025 Basophils/100 WBC (Bld) 0.4 % 0-1 [facility] Bilirubin, totalOrdered By: Vivek Cheng on 02-05-2025 Bilirubin [Mass/Vol] 0.42 mg/dL 0.00-1.30 [facility] CBC W/Diff, Automatedon 01-18 Absolute Lymph 1.25 X10 3/uL Normal 0.83-4.51 [facility] Comment on above: Performed By: #### L 3410.9994, L100.0100, L3410.9992, L500.4050, L3410.9996, L501.9520, L509.8002, L503.0106, L506.1001, L506.0200 #### [facility] [address] [facility] [place], [address] Absolute Neut 3.7 X10 3/uL Normal 2.0-7.7 [facility] Comment on above: Performed By: #### L 3410.9994, L100.0100, L3410.9992, L500.4050, L3410.9996, L501.9520, L509.8002, L503.0106, L506.1001, L506.0200 #### [facility] [address] [facility] [place], [address] Basophils/100 WBC (Bld) 0.4 % Normal 0-1 [facility] Comment on above: Performed By: #### L 3410.9994, L100.0100, L3410.9992, L500.4050, L3410.9996, L501.9520, L509.8002, L503.0106, L506.1001, L506.0200 #### [facility] [address] [place], [address] Eosinophils/100 WBC (Bld) 0.9 % Normal 0-5 [facility] Comment on above: Performed By: #### L 3410.9994, L100.0100, L3410.9992, L500.4050, L3410.9996, L501.9520, L509.8002, L503.0106, L506.1001, L506.0200 #### [facility] [address] [place], [address] Erythrocyte distribution width (RBC) [Ratio] 13.6 % Normal 11.6-14.6 [facility] Comment on above: Performed By: #### L 3410.9994, L100.0100, L3410.9992, L500.4050, L3410.9996, L501.9520, L509.8002, L503.0106, L506.1001, L506.0200 #### [facility] [address] [place], [address] Hematocrit (Bld) [Volume fraction] 38.0 % Normal 37-47 [facility] Comment on above: Performed By: #### L 3410.9994, L100.0100, L3410.9992, L500.4050, L3410.9996, L501.9520, L509.8002, L503.0106, L506.1001, L506.0200 #### [facility] [address] [place], [address] Hemoglobin (Bld) [Mass/Vol] 12.4 g/dL Normal 12.0-15.0 [facility] Comment on above: Performed By: #### L 3410.9994, L100.0100, L3410.9992, L500.4050, L3410.9996, L501.9520, L509.8002, L503.0106, L506.1001, L506.0200 #### [facility] [address] [place], [address] IG% 0.000 Normal 0.0-0.9 [facility] Comment on above: Result Comment: IG% - Immature Granulocytes (promyelocytes, myelocytes and metamyelocytes) > 1% indicates that a LEFT SHIFT is Present. Performed By: #### L 3410.9994, L100.0100, L3410.9992, L500.4050, L3410.9996, L501.9520, L509.8002, L503.0106, L506.1001, L506.0200 #### [facility] [address] [facility] [place], [address] Lymphocytes/100 WBC (Bld) 22.4 % Normal 19-41 [facility] Comment on above: Performed By: #### L 3410.9994, L100.0100, L3410.9992, L500.4050, L3410.9996, L501.9520, L509.8002, L503.0106, L506.1001, L506.0200 #### [facility] [address] [facility] [place], [address] MCH (RBC) [Entitic mass] 30.0 pg Normal 27.0-32.0 [facility] Comment on above: Performed By: #### L 3410.9994, L100.0100, L3410.9992, L500.4050, L3410.9996, L501.9520, L509.8002, L503.0106, L506.1001, L506.0200 #### [facility] [address] [facility] [place], [address] MCHC (RBC) [Mass/Vol] 32.6 g/dL Normal 32-36 [facility] Comment on above: Performed By: #### L 3410.9994, L100.0100, L3410.9992, L500.4050, L3410.9996, L501.9520, L509.8002, L503.0106, L506.1001, L506.0200 #### [facility] [address] [facility] [place], [address] MCV (RBC) [Entitic vol] 91.8 fL Normal 81-99 [facility] Comment on above: Performed By: #### L 3410.9994, L100.0100, L3410.9992, L500.4050, L3410.9996, L501.9520, L509.8002, L503.0106, L506.1001, L506.0200 #### [facility] [address] [facility] [place], [address] ( Monocytes/100 WBC (Bld) 9.8 % Normal 0-10 [facility] Comment on above: Performed By: #### L 3410.9994, L100.0100, L3410.9992, L500.4050, L3410.9996, L501.9520, L509.8002, L503.0106, L506.1001, L506.0200 #### [facility] [address] [facility] [place], [address] Neutrophils/100 WBC (Bld) 66.5 % Normal 47-70 [facility] Comment on above: Performed By: #### L 3410.9994, L100.0100, L3410.9992, L500.4050, L3410.9996, L501.9520, L509.8002, L503.0106, L506.1001, L506.0200 #### [facility] [address] [facility] [place], [address] Nucleated RBC (Bld) [#/Vol] 0 10*3/uL Normal 0-5 [facility] Comment on above: Performed By: #### L 3410.9994, L100.0100, L3410.9992, L500.4050, L3410.9996, L501.9520, L509.8002, L503.0106, L506.1001, L506.0200 #### [facility] [address] [place], [address] Platelet mean volume (Bld) [Entitic vol] 10.7 fL Normal 6.2-12.0 [facility] Comment on above: Performed By: #### L 3410.9994, L100.0100, L3410.9992, L500.4050, L3410.9996, L501.9520, L509.8002, L503.0106, L506.1001, L506.0200 #### [facility] [address] [place], [address] ([address] Platelets (Bld) [#/Vol] 245 10*3/uL Normal 150-450 [facility] Comment on above: Performed By: #### L 3410.9994, L100.0100, L3410.9992, L500.4050, L3410.9996, L501.9520, L509.8002, L503.0106, L506.1001, L506.0200 #### [facility] [address] [place], [address] RBC (Bld) [#/Vol] 4.14 10*6/uL Low 4.2-5.[address] [facility] Comment on above: Performed By: #### L 3410.9994, L100.0100, L3410.9992, L500.4050, L3410.9996, L501.9520, L509.8002, L503.0106, L506.1001, L506.0200 #### [facility] [address] [place], [address] RDW SD 46.3 fl High 35.1-43.9 [facility] Comment on above: Performed By: #### L 3410.9994, L100.0100, L3410.9992, L500.4050, L3410.9996, L501.9520, L509.8002, L503.0106, L506.1001, L506.0200 #### [facility] [address] [place], [address] WBC (Bld) [#/Vol] 5.6 10*3/uL Normal 4.4-11.0 [facility] Comment on above: Performed By: #### L 3410.9994, L100.0100, L3410.9992, L500.4050, L3410.9996, L501.9520, L509.8002, L503.0106, L506.1001, L506.0200 #### [facility] [address] [place], [place], [phone] (540) Carbon dioxide, total [Moles /volume] in Central venous bloodOrdered By: Vivek Cheng on 02-05-2025 CO2 [Moles/Vol] 25.8 mmol/L 21.0-32.0 [facility] Chloride assayOrdered By: Steven Cheng on 02-05-2025 Chloride [Moles/Vol] 104 mmol/L 98-108 [facility] Comprehensive Metabolic Prof ilon 02-05-2025 Albumin [Mass/Vol] 3.9 g/dL Normal 3.4-4.8 [facility] Comment on above: Performed By: #### L 3410.9994, L100.0100, L3410.9992, L500.4050, L3410.9996, L501.9520, L509.8002, L503.0106, L506.1001, L506.0200 #### [facility] [address] [place], [address] Albumin/Globulin [Mass ratio] 1.1 {ratio} Normal 0.9-2.4 [facility] Comment on above: Performed By: #### L 3410.9994, L100.0100, L3410.9992, L500.4050, L3410.9996, L501.9520, L509.8002, L503.0106, L506.1001, L506.0200 #### [facility] [address] [place], [place], [phone] (968) ALK PHOS 76 U/L Normal 35-104 [facility] Comment on above: Performed By: #### L 3410.9994, L100.0100, L3410.9992, L500.4050, L3410.9996, L501.9520, L509.8002, L503.0106, L506.1001, L506.0200 #### [facility] [address] [place], [place], [phone] (064) ALT [Catalytic activity/Vol] 11 U/L Normal <=34 [facility] Comment on above: Performed By: #### L 3410.9994, L100.0100, L3410.9992, L500.4050, L3410.9996, L501.9520, L509.8002, L503.0106, L506.1001, L506.0200 #### [facility] [address] [place], [place], [phone] (072) AST [Catalytic activity/Vol] 18 U/L Normal <=31 [facility] Comment on above: Performed By: #### L 3410.9994, L100.0100, L3410.9992, L500.4050, L3410.9996, L501.9520, L509.8002, L503.0106, L506.1001, L506.0200 #### [facility] [address] [place], [place], [phone] (455) Bilirubin [Mass/Vol] 0.42 mg/dL Normal 0.00-1.30 [facility] Comment on above: Performed By: #### L 3410.9994, L100.0100, L3410.9992, L500.4050, L3410.9996, L501.9520, L509.8002, L503.0106, L506.1001, L506.0200 #### [facility] [address] [place], [address] BUN/CRE 20.3 RATIO High 10-20 [facility] Comment on above: Performed By: #### L 3410.9994, L100.0100, L3410.9992, L500.4050, L3410.9996, L501.9520, L509.8002, L503.0106, L506.1001, L506.0200 #### [facility] [address], [address] Calcium [Mass/Vol] 9.2 mg/dL Normal 7.6-11.0 [facility] Comment on above: Performed By: #### L 3410.9994, L100.0100, L3410.9992, L500.4050, L3410.9996, L501.9520, L509.8002, L503.0106, L506.1001, L506.0200 #### [facility] [address], [address] Chloride [Moles/Vol] 104 mmol/L Normal 98-108 [facility] Comment on above: Performed By: #### L 3410.9994, L100.0100, L3410.9992, L500.4050, L3410.9996, L501.9520, L509.8002, L503.0106, L506.1001, L506.0200 #### [facility] [address] [place], [address] CO2 [Moles/Vol] 25.8 mmol/L Normal 21.0-32.0 [facility] Comment on above: Performed By: #### L 3410.9994, L100.0100, L3410.9992, L500.4050, L3410.9996, L501.9520, L509.8002, L503.0106, L506.1001, L506.0200 #### [facility] [address] [place], [place], [phone] (582) Creatinine [Mass/Vol] 0.61 mg/dL Low 0.70-1.20 [facility] Comment on above: Performed By: #### L 3410.9994, L100.0100, L3410.9992, L500.4050, L3410.9996, L501.9520, L509.8002, L503.0106, L506.1001, L506.0200 #### [facility] [address] [place], [address] (444) GAP 11 Normal 5-15 [facility] Comment on above: Performed By: #### L 3410.9994, L100.0100, L3410.9992, L500.4050, L3410.9996, L501.9520, L509.8002, L503.0106, L506.1001, L506.0200 #### [facility] [address] [place], [address] (412) GFR/1.73 sq M.predicted among non-blacks MDRD (S/P/Bld) [Vol rate/Area] 94 mL/min/{1.73_m2} Normal >60 [facility] Comment on above: Result Comment: mL/m in/1.73m2 CKD-EPI Creatinine Equation (2020) Performed By: #### L 3410.9994, L100.0100, L3410.9992, L500.4050, L3410.9996, L501.9520, L509.8002, L503.0106, L506.1001, L506.0200 #### [facility] [address] [place], [address] (861) Globulin (S) [Mass/Vol] 3.6 g/dL Normal 2.2-4.2 [facility] Comment on above: Performed By: #### L 3410.9994, L100.0100, L3410.9992, L500.4050, L3410.9996, L501.9520, L509.8002, L503.0106, L506.1001, L506.0200 #### [facility] [address] [place], [place], [phone] (134) Glucose [Mass/Vol] 89 mg/dL Normal 70-99 [facility] Comment on above: Performed By: #### L 3410.9994, L100.0100, L3410.9992, L500.4050, L3410.9996, L501.9520, L509.8002, L503.0106, L506.1001, L506.0200 #### [facility] [address] [place], [place], [phone] (450) Potassium [Moles/Vol] 4.0 mmol/L Normal 3.3-5.1 [facility] Comment on above: Performed By: #### L 3410.9994, L100.0100, L3410.9992, L500.4050, L3410.9996, L501.9520, L509.8002, L503.0106, L506.1001, L506.0200 #### [facility] [address] [place], [place], [phone] (978) Sodium [Moles/Vol] 141 mmol/L Normal 133-145 [facility] Comment on above: Performed By: #### L 3410.9994, L100.0100, L3410.9992, L500.4050, L3410.9996, L501.9520, L509.8002, L503.0106, L506.1001, L506.0200 #### [facility] [address] [place], [address] T PROT 7.5 g/dL Normal 5.9-8.4 [facility] Comment on above: Performed By: #### L 3410.9994, L100.0100, L3410.9992, L500.4050, L3410.9996, L501.9520, L509.8002, L503.0106, L506.1001, L506.0200 #### [facility] [address] [place], [place], [phone] Urea nitrogen [Mass/Vol] 12 mg/dL Normal - [facility] Comment on above: Performed By: #### L 3410.9994, L100.0100, L3410.9992, L500.4050, L3410.9996, L501.9520, L509.8002, L503.0106, L506.1001, L506.0200 #### [facility] [address] [place], [place], [id number] Eosinophil percentageOrdered By: Vivek Suttonok on 02-05-2025 Eosinophils/100 WBC (Bld) 0.9 % 0-5 [facility] Erythrocyte distribution wid th ratioOrdered By: [facility] on 02-05-2025 Erythrocyte distribution width (RBC) [Ratio] 13.6 % 11.6-14.6 [facility] Erythrocyte distribution wid th standard deviationOrdered By: [facility] on 02-05-2025 Erythrocyte distribution width (RBC) [Ratio] 46.3 fl High 35.1-43.9 [facility] Folate [Mass/volume] in Seru m or PlasmaOrdered By: Vivek Cheng on 02-05-2025 Folate [Mass/Vol] 3.73 ng/mL Low 4.60-34.80 [facility] Folates,Serum (Folic Acid)on 02-05-2025 FOLATES,SERUM 3.73 ng/mL Low 4.60-34.80 [facility] Comment on above: Order Comment: N Performed By: #### L 3410.9994, L100.0100, L3410.9992, L500.4050, L3410.9996, L501.9520, L509.8002, L503.0106, L506.1001, L506.0200 #### [facility] [address] [place], [address] Glomerular filtration rate ( GFR) estimation/1.73 sq m using serum, plasma, or whole bOrdered By: Vivek Cheng on 02-05-2025 GFR/1.73 sq M.predicted among non-blacks MDRD (S/P/Bld) [Vol rate/Area] 94 mL/min/{1.73_m2} >60 [facility] Comment on above: mL/min/1.73m2 CKD-EP I Creatinine Equation (2020) Hematocrit Auto (Bld) [Volum e fraction]Ordered By: Vivek Prosper on 02-05-2025 Hematocrit (Bld) [Volume fraction] 38.0 % 37-47 [facility] Hemoglobin measurementOrdere d By: Vivek Cheng 02-05-2025 Hemoglobin (Bld) [Mass/Vol] 12.4 g/dL 12.0-15.0 [facility] Immature granulocytes/100 WB C Auto (Bld)Ordered By: Vivek Cheng 02-05-2025 Immature granulocytes/100 WBC (Bld) 0.000 % 0.0-0.9 [facility] Comment on above: IG% - Immature Granu locytes (promyelocytes, myelocytes and metamyelocytes) > 1% indicates that a LEFT SHIFT is Present. Laboratory - Chemistry and C hemistry - challengeOrdered By: Vivek Cheng 02-05-2025 AST [Catalytic activity/Vol] 18 U/L <32 [facility] MCV (mean corpuscular volume ) determinationOrdered By: Vivek Prosper 02-05-2025 MCV (RBC) [Entitic vol] 91.8 fL 81-99 [facility] Mean corpuscular hemoglobin (MCH) determinationOrdered By: Vivek Prosper 02-05-2025 MCH (RBC) [Entitic mass] 30.0 pg 27.0-32.0 [facility] Mean corpuscular hemoglobin concentration (MCHC) determinationOrdered By: Vivek Prosper 02-05-2025 MCHC (RBC) [Mass/Vol] 32.6 g/dL 32-36 [facility] Mean platelet volume determi nationOrdered By: Vivek Cheng on 02-05-2025 Platelet mean volume (Bld) [Entitic vol] 10.7 fL 6.2-12.0 [facility] Monocyte percentageOrdered B y: Vivek Cheng on 02-05-2025 Monocytes/100 WBC (Bld) 9.8 % 0-10 [facility] Neutrophil percentageOrdered By: Vivek Cheng on 02-05-2025 Neutrophils/100 WBC (Bld) 66.5 % 47-70 [facility] Nucleated red blood cell per centageOrdered By: Vivek Cheng on 02-05-2025 Nucleated RBC/100 WBC (Bld) [Ratio] 0 % 0-5 [facility] Platelet countOrdered By: Steven Cheng on 02-05-2025 Platelets (Bld) [#/Vol] 245 10*3/uL 150-450 [facility] Potassium measurement (mass/ volume)Ordered By: Vivek Cheng on 02-05-2025 Potassium (Unsp spec) [Mass/Vol] 4.0 mmol/L 3.3-5.1 [facility] RBC Auto (Bld) [#/Vol]Ordere d By: Vivek Cheng on 02-05-2025 RBC (Bld) [#/Vol] 4.14 10*6/uL Low 4.2-5.[address] [facility] Serum creatinine measurement (mass/volume)Ordered By: Vivek Cheng on 02-05-2025 Creatinine [Mass/Vol] 0.61 mg/dL Low 0.70-1.20 [facility] Serum globulin measurementOr dered By: Vivek Cheng on 02-05-2025 Globulin (S) [Mass/Vol] 3.6 g/dL 2.2-4.2 [facility] Serum glucose measurement (m ass/volume)Ordered By: Vivek Cheng on 02-05-2025 Glucose [Mass/Vol] 89 mg/dL 70-99 [facility] Serum or plasma alanine guajardo otransferase (ALT) measurementOrdered By: Vivek Cheng 02-05-2025 ALT [Catalytic activity/Vol] 11 U/L <35 [facility] Serum or plasma albumin brody urement (mass/volume)Ordered By: Vivek Cheng on 02-05-2025 Albumin [Mass/Vol] 3.9 g/dL 3.4-4.8 [facility] Serum or plasma albumin/glob ulin mass ratioOrdered By: Vivek Cheng on 02-05-2025 Albumin/Globulin [Mass ratio] 1.1 {ratio} 0.9-2.4 [facility] Serum or plasma alkaline janae sphatase measurementOrdered By: Vivek Cheng on 02-05-2025 ALP [Catalytic activity/Vol] 76 U/L 35-104 [facility] Serum or plasma calcium brody urement (mass/volume)Ordered By: Vivek Cheng on 02-05-2025 Calcium [Mass/Vol] 9.2 mg/dL 7.6-11.0 [facility] Serum or plasma urea nitroge n measurement (mass/volume)Ordered By: Vivek Cheng on 02-05-2025 Urea nitrogen [Mass/Vol] 12 mg/dL 4-19 [facility] Sodium levelOrdered By: Vivek Cheng on 02-05-2025 Sodium [Moles/Vol] 141 mmol/L 133-145 [facility] Syphilis Antibodieson 2024 Syphilis Abs Non-Reactive Normal Nonreactive [facility] Comment on above: Performed By: #### L 3410.9994, L100.0100, L3410.9992, L500.4050, L3410.9996, L501.9520, L509.8002, L503.0106, L506.1001, L506.0200 #### [facility] [address] [place], [place] [address]all [facility] [place], [address] TSH DL <= 0.005 mIU/L QnOrde red By: Vivek Cheng on 02-05-2025 TSH Qn 1.900 uIU/mL 0.300-4.200 [facility] Thyroid Stim Hormone (TSH)on 02-05-2025 TSH 1.900 uIU/mL Normal 0.300-4.200 [facility] Comment on above: Performed By: #### L 3410.9994, L100.0100, L3410.9992, L500.4050, L3410.9996, L501.9520, L509.8002, L503.0106, L506.1001, L506.0200 #### [facility] [address] [place], [address] Total proteinOrdered By: Vivek Cheng on 02-05-2025 Protein [Mass/Vol] 7.5 g/dL 5.9-8.4 [facility] Vitamin B12on 02-05-2025 Cobalamin (Vitamin B12) [Mass/Vol] 1582 pg/mL High 180-914 [facility] Comment on above: Performed By: #### L 3410.9994, L100.0100, L3410.9992, L500.4050, L3410.9996, L501.9520, L509.8002, L503.0106, L506.1001, L506.0200 #### [facility] [address] [facility] [place], [place], [id number] Vitamin B12 ser/plasOrdered By: Vivek Cheng on 02-05-2025 Cobalamin (Vitamin B12) [Mass/Vol] 1582 pg/mL High 180-914 [facility] Vitamin D,25 Hydroxyon 02-05 Vitamin D 25-OH 58.2 ng/mL Normal 30-100 [facility] Comment on above: Result Comment: Ciera min D Status Deficiency: <20 ng/mL (50nmol/L) Insufficiency: 20-30 ng/mL (50-75 nmol/L) Sufficiency: 30-100 ng/mL (75-250 nmol/L) Toxicity: >100 ng/mL (>250 nmol/L) Performed By: #### L 506.1000, L501.9520, L100.0100, L500.4050 #### [facility] [address] [facility] [place], [address] White blood cell (WBC) count Ordered By: Vivek Cheng on 02-05-2025 WBC (Bld) [#/Vol] 5.6 10*3/uL 4.4-11.0 [facility] CBC W/Diff, Automatedon 01-0 2-2024 Absolute Lymph 1.33 X10 3/uL Normal 0.83-4.51 [facility] Comment on above: Performed By: #### L 506.1000, L501.9520, L100.0100, L500.4050 #### [facility] [address] [place], [address] Absolute Neut 4.4 X10 3/uL Normal 2.0-7.7 [facility] Comment on above: Performed By: #### L 506.1000, L501.9520, L100.0100, L500.4050 #### [facility] [address] [place], [address] Basophils/100 WBC (Bld) 0.6 % Normal 0-1 [facility] Comment on above: Performed By: #### L 506.1000, L501.9520, L100.0100, L500.4050 #### [facility] [address] [place], [address] Eosinophils/100 WBC (Bld) 1.4 % Normal 0-5 [facility] Comment on above: Performed By: #### L 506.1000, L501.9520, L100.0100, L500.4050 #### [facility] [address] [place], [address] Erythrocyte distribution width (RBC) [Ratio] 12.7 % Normal 11.6-14.6 [facility] Comment on above: Performed By: #### L 506.1000, L501.9520, L100.0100, L500.4050 #### [facility] [address] [place], [address] Hematocrit (Bld) [Volume fraction] 42.0 % Normal 37-47 [facility] Comment on above: Performed By: #### L 506.1000, L501.9520, L100.0100, L500.4050 #### [facility] [address] [place], [address] Hemoglobin (Bld) [Mass/Vol] 13.5 g/dL Normal 12.0-15.0 [facility] Comment on above: Performed By: #### L 506.1000, L501.9520, L100.0100, L500.4050 #### [facility] [address] [place], [address] IG% 0.600 Normal 0.0-0.9 [facility] Comment on above: Result Comment: IG% - Immature Granulocytes (promyelocytes, myelocytes and metamyelocytes) > 1% indicates that a LEFT SHIFT is Present. Performed By: #### L 506.1000, L501.9520, L100.0100, L500.4050 #### [facility] [address] [place], [address] Lymphocytes/100 WBC (Bld) 20.2 % Normal 19-41 [facility] Comment on above: Performed By: #### L 506.1000, L501.9520, L100.0100, L500.4050 #### [facility] [address] [place], [address] MCH (RBC) [Entitic mass] 30.7 pg Normal 27.0-32.0 [facility] Comment on above: Performed By: #### L 506.1000, L501.9520, L100.0100, L500.4050 #### [facility] [address] [place], [address] MCHC (RBC) [Mass/Vol] 32.1 g/dL Normal 32-36 [facility] Comment on above: Performed By: #### L 506.1000, L501.9520, L100.0100, L500.4050 #### [facility] [address] [place], [address] MCV (RBC) [Entitic vol] 95.5 fL Normal 81-99 [facility] Comment on above: Performed By: #### L 506.1000, L501.9520, L100.0100, L500.4050 #### [facility] [address] [place], [address] Monocytes/100 WBC (Bld) 10.5 % High 0-10 [facility] Comment on above: Performed By: #### L 506.1000, L501.9520, L100.0100, L500.4050 #### [facility] [address] [place], [address] Neutrophils/100 WBC (Bld) 66.7 % Normal 47-70 [facility] Comment on above: Performed By: #### L 506.1000, L501.9520, L100.0100, L500.4050 #### [facility] [address] [place], [address] Nucleated RBC (Bld) [#/Vol] 0 10*3/uL Normal 0-5 [facility] Comment on above: Performed By: #### L 506.1000, L501.9520, L100.0100, L500.4050 #### [facility] [address] [place], [address] Platelet mean volume (Bld) [Entitic vol] 10.2 fL Normal 6.2-12.0 [facility] Comment on above: Performed By: #### L 506.1000, L501.9520, L100.0100, L500.4050 #### [facility] [address] [place], [address] Platelets (Bld) [#/Vol] 285 10*3/uL Normal 150-450 [facility] Comment on above: Performed By: #### L 506.1000, L501.9520, L100.0100, L500.4050 #### [facility] [address] [place], [address] RBC (Bld) [#/Vol] 4.40 10*6/uL Normal 4.2-5.[address] [facility] Comment on above: Performed By: #### L 506.1000, L501.9520, L100.0100, L500.4050 #### [facility] [address] [place], [address] RDW SD 44.2 fl High 35.1-43.9 [facility] Comment on above: Performed By: #### L 506.1000, L501.9520, L100.0100, L500.4050 #### [facility] [address] [place], [address] WBC (Bld) [#/Vol] 6.6 10*3/uL Normal 4.4-11.0 [facility] Comment on above: Performed By: #### L 506.1000, L501.9520, L100.0100, L500.4050 #### [facility] [address] [place], [address] Comprehensive Metabolic [facility] 08-21-2024 Albumin [Mass/Vol] 3.0 g/dL Low 3.2-5.0 [facility] Comment on above: Performed By: #### L 506.1000, L501.9520, L100.0100, L500.4050 #### [facility] [address] [place], [address] Albumin/Globulin [Mass ratio] 0.7 {ratio} Low 0.9-2.4 [facility] Comment on above: Performed By: #### L 506.1000, L501.9520, L100.0100, L500.4050 #### [facility] [address] [place], [address] ALK P 124 U/L High 45-117 [facility] Comment on above: Performed By: #### L 506.1000, L501.9520, L100.0100, L500.4050 #### [facility] [address] [place], [address] ALT [Catalytic activity/Vol] 21 U/L Normal 13-56 [facility] Comment on above: Performed By: #### L 506.1000, L501.9520, L100.0100, L500.4050 #### [facility] [address] [place], [address] AST [Catalytic activity/Vol] 19 U/L Normal 15-37 [facility] Comment on above: Performed By: #### L 506.1000, L501.9520, L100.0100, L500.4050 #### [facility] [address] [place], [address] Bilirubin [Mass/Vol] 0.30 mg/dL Normal 0.20-1.00 [facility] Comment on above: Result Comment: For patients on eltrombopag therapy, use of Dimension Mobile TBIL is not recommended. Performed By: #### L 506.1000, L501.9520, L100.0100, L500.4050 #### [facility] [address] [place], [address] BUN/CRE 12.8 RATIO Normal 10-20 [facility] Comment on above: Performed By: #### L 506.1000, L501.9520, L100.0100, L500.4050 #### [facility] [address] [place], [address] CA,Total 8.9 mg/dL Normal 8.5-10.1 [facility] Comment on above: Performed By: #### L 506.1000, L501.9520, L100.0100, L500.4050 #### [facility] [address] [place], [address] Chloride [Moles/Vol] 106 mmol/L Normal 98-107 [facility] Comment on above: Performed By: #### L 506.1000, L501.9520, L100.0100, L500.4050 #### [facility] [address] [place], [address] CO2 [Moles/Vol] 31.0 mmol/L Normal 21.0-32.0 [facility] Comment on above: Performed By: #### L 506.1000, L501.9520, L100.0100, L500.4050 #### [facility] [address] [place], [address] Creatinine [Mass/Vol] 0.78 mg/dL Normal 0.55-1.02 [facility] Comment on above: Result Comment: The validity of the calculated GFR GFRAA in patients over 70 years has not been determined. Clinical correlation is essential. Performed By: #### L 506.1000, L501.9520, L100.0100, L500.4050 #### [facility] [address] [place], [address] EST GFR - AA 93 mL/min Normal >60 [facility] Comment on above: Result Comment: Afri can [place] GFR Calc Performed By: #### L 506.1000, L501.9520, L100.0100, L500.4050 #### [facility] [address] [place], [address] GAP 4 Low 5-15 [facility] Comment on above: Performed By: #### L 506.1000, L501.9520, L100.0100, L500.4050 #### [facility] [address] [place], [address] GFR/1.73 sq M.predicted among non-blacks MDRD (S/P/Bld) [Vol rate/Area] 77 mL/min/{1.73_m2} Normal >60 [facility] Comment on above: Result Comment: Non- GFR Calc Performed By: #### L 506.1000, L501.9520, L100.0100, L500.4050 #### [facility] [address] [place], [address] Globulin (S) [Mass/Vol] 4.6 g/dL High 2.2-4.2 [facility] Comment on above: Performed By: #### L 506.1000, L501.9520, L100.0100, L500.4050 #### [facility] [address] [place], [address] Glucose [Mass/Vol] 95 mg/dL Normal 74-106 [facility] Comment on above: Performed By: #### L 506.1000, L501.9520, L100.0100, L500.4050 #### [facility] [address] [place], [address] Potassium [Moles/Vol] 3.9 mmol/L Normal 3.5-5.1 [facility] Comment on above: Performed By: #### L 506.1000, L501.9520, L100.0100, L500.4050 #### [facility] [address] [place], [address] Sodium [Moles/Vol] 141 mmol/L Normal 136-145 [facility] Comment on above: Performed By: #### L 506.1000, L501.9520, L100.0100, L500.4050 #### [facility] [address] [place], [address] T PROT 7.6 g/dL Normal 6.4-8.2 [facility] Comment on above: Performed By: #### L 506.1000, L501.9520, L100.0100, L500.4050 #### [facility] [address] [place], [address] Urea nitrogen [Mass/Vol] 10 mg/dL Normal 7-18 [facility] Comment on above: Performed By: #### L 506.1000, L501.9520, L100.0100, L500.4050 #### [facility] [address] [place], [address] Thyroid Stim Hormone (TSH)on 08-21-2024 TSH 1.340 uIU/mL Normal 0.358-3.740 [facility] Comment on above: Performed By: #### L 506.1000, L501.9520, L100.0100, L500.4050 #### [facility] [address] [place], [address] Vitamin D,25 Hydroxyon 08-21 Vitamin D 25-OH 59.2 ng/mL Normal [facility] Comment on above: Result Comment: Ciera min D 25(OH) Status Range Deficiency <20 ng/mL (50nmol/L) Insufficiency 20 - 30 ng/mL (50 - 75 nmol/L) Sufficiency 30 - 100 ng/mL (75 - 250 nmol/L) Toxicity >100 ng/mL (>250 nmol/L) Performed By: #### L 506.1000, L501.9520, L100.0100, L500.4050 #### [facility] [address] [place], [address] Encounters Encounter Date Encounter Type Care Provider Facility Start: 07-09-2025 ambulatory Vivek Chi Prosper Facility:[facility] Start: 06-15-2025 End: 06-15-2025 ambulatory Vivek Chi Prosper Facility:[facility] [place] Start: 03-14-2025 End: 03-14-[address] Vivek Cheng MD Work Phone: -[facility] Start: 03-14-2025 End: 03-14-[address] Vivek Cheng MD -[facility] Work Phone: Start: 03-14-2025 End: 03-14-2025 ambulatory Vivek Aaron Suttonok Facility:[facility] Start: 02-06-2025 End: 02-06-[address] Vivek Cheng MD Work Phone: [facility] Work Phone: Start: 02-06-2025 End: 02-06-[address] Vivek Cheng MD -Outpatient [facility] Work Phone: Start: 02-05-2025 End: 02-06-[address] Vivek Cheng MD Work Phone: [facility] Work Phone: Start: 02-05-2025 End: 02-05-[address] Vivek Cheng MD -Laboratory Work Phone: Start: 02-05-2025 End: 02-05-2025 ambulatory Vivek Aaron Cheng Facility:[facility] Start: 08-21-2024 End: 08-21-2024 ambulatory Vivek Cheng Facility:[facility] Start: 11-16-[address] KHADIJAH ALTAMIRANO [facility] Procedures Date Procedure Procedure Detail Performing Clinician Start: 03-14-2025 MRI of brain without contrast Dr. Vivek juarez MD Work Phone: Start: 02-06-[address] Vivek Cheng MD Work Phone: Start: 02-05-[address] Vivek Cheng MD Work Phone: Comment on above: Test Ordered: [id number] Beta Amyloid 42/40 RatioTest(s) 046662-Gfls-zbumrqk 42/40 Ratio; 613488-Vsfi-sidswtf 42; 075006-Rozl-lytpjbg 40was developed and its performance characteristicsdetermined by [facility]. It has not been cleared or approvedby the Food and Drug Administration.Beta-amyloid 42/40 Ratio 0.096 [L ] BN Reference Range: >0.102Beta-amyloid 42 15.54 pg/mL BN Reference Range: .Beta-amyloid 40 161.77 pg/mL BN Reference Range: .Plasma beta-amyloid 1-42/1-40 ratios less [...] deficiency biomarkers, neuroimaging,and physical, neurological, and neuropsychologicalexaminations.Methodology: [employer] Chemiluminescence Enzyme Immunoassay(CLEIA). Values obtained with differentmethods cannot be used interchangeably.Performed at: [facility] [id number] Director: Binu Sandoval MD, Phone: [phone] at: [address] [id number] Director: Luis Robertson PhD, Phone: [phone] Test Ordered: [id number] p-drb159Lcaw(s) 521429-u-sju505bgn developed and its performance characteristicsdetermined by [facility]. It has not been cleared or approvedby the Food and Drug Administration.p-yzb841 0.29 [H ] pg/mL L9 Reference Range: 0.00-0.18 Clinical cutoff value was established using samples from a patientcohort characterized with amyloid PET data. A p-mat606 value of >0.18is a reported surrogate marker for beta amyloid pathology, and can beused to facilitate biological identification of Alzheimer's disease(1). p-ytu077 has also been used in clinical trials to monitorpatients on anti-amyloid therapy (2,3). Test performed by [employer] chemiluminescent enzymeimmunoassay (CLEIA). Values obtained with different methods cannot beused interchangeably. The validated limit of quantification is 0.06pg/mL. Assay detection limit is 0.03 pg/mL.Footnotes Comment L9 Reference Range: .1. Rahul Arora et al. Diagnostic Accuracy of aPlasma Phosphorylated Tau 217 Immunoassay for AlzheimerDisease Pathology. SHANNON neurology (2023).2. Rahul Arora, et al. Differential roles ofA42/40, p-qks817 and p-kgp631 for Alzheimer's trialselection and disease monitoring. Nature medicine 28.12(2021): 1787-3230. 3. Andrew MJ, Karla M, Anabell SC, etal. Association of Donanemab Treatment With ExploratoryPlasma Biomarkers in Early Symptomatic Alzheimer Disease: ASecondary Analysis of the TRAILBLAZER-ALZ RandomizedClinical Trial. SHANNON Neurol. 2021;79(12):7654-8833.Performed at: [facility] [place] [id number] Director: Ezequiel Gomes MD, Phone: [phone] at: [employer] [id number] Director: Luis Robertson PhD, Phone: [phone] Test Ordered: [id number] APOE Alzheimer's RiskMethodology: Comment UY Reference Range: .Patient DNA is assayed for the APOE genotype by PCRamplification of a specific region in exon 4 of the APOEgene followed by digestion with restriction enzyme Grainer Machine Iand separation of fragments by polyacrylamide gelelectrophoresis. This approach allows the APOE E2, E3, andE4 alleles to be distinguished. Analytical sensitivity andspecificity are >99.5%. Individuals are interpreted ashaving one of the following genotypes: E2/E2, E3/E3, E4/E4,E2/E3, E2/E4, E3/E4.APO E Genotyping Result: Comment UY Reference Range: .E3/E4 (one copy of the APOE4 variant)Interpretation: Comment UY Reference Range: .Positive for one copy of the APOE4 variant that isassociated with increased risk for late onset Alzheimer'sdisease (AD). Therefore the lifetime risk for AD isincreased in this individual. However, most individualswith one copy of the APOE4 variant do not develop AD.RECOMMENDATIONSGenetic counseling is recommended.Due to the lack of measures to prevent the development ofAD, the ACMG/NSGC guidelines do not recommendpresymptomatic testing, but if it is performed, guidelinesare provided (Bob MOORE et al. 2011). The APOE Genotyping:Alzheimer's Risk test is not recommended for children.NOTE: This is not a diagnostic test. Results should beinterpreted along with clinical findings and other data.This test evaluates only for the APOE genotype and cannotdetect genetic abnormalities elsewhere in the genome. Itshould be realized that there are possible sources of errorincluding sample misidentification, rare technical errors,trace contamination of PCR reactions, and rare geneticvariants that may interfere with analysis.For inquiries or genetic consultation, please call [facility] .Comment: Comment UY Reference Range: .INFORMATION ABOUT THE APOE GENOTYPE AND ALZHEIMER'S DISEASEAlzheimer's disease (AD) is the most common form ofdementia in the elderly and currently affects more than 5million Americans. It is a progressive neurodegenerativedisorder with brain findings of plaques and neurofibrillarytangles containing beta-amyloid and tau proteinrespectively.The predominant form of AD is late onset (age > 60-65),which can be familial (15-20%) or sporadic. The PERE4oddstas increases the risk for late onset AD and maycontribute to the pathology of the disease. This risk isincreased by approximately 2 to 3-fold for individuals withone copy of the APOE4 variant and by approximately 99bv04-iqev for individuals with two copies of this variant(E4/E4 genotype). The APOE2 variant has some protectiveeffect against development of late onset AD. The lifetimerisk for late onset AD is approximately 10-12% in thegeneral population, though it is higher in women than menand doubles when there is a first degree relative with thisdisorder. The lifetime risk is approximately 9% forindividuals negative for APOE4, and for individuals withE4/E4 may be as high as 25% for males and 45% for females.Among patients with late onset AD, the presence of MBAB4xne lead to earlier development of symptoms.However, APOE4 is neither necessary nor sufficient for thedevelopment of AD. Approximately 30-50% of patients withlate onset AD do not have an APOE4 allele.APOE4 is common, with 25% of the general population havingone copy and 1% having two copies of this variant. Amongpatients with late onset AD, 50-70% are positive for APOE4.The development of late onset AD is influenced by manyfactors other than APOE4 including age, gender, familyhistory, level of education and history of head trauma.Midlife cardiovascular risk factors in individuals withAPOE4 also increase risk for cognitive decline. A number ofgenetic influences in addition to APOE4 have also beenreported and are under investigation.This test was developed and its performance characteristicsdetermined by [employer]. It has not been cleared or approvedby the Food and Drug Administration. The FDA has determinedthat such clearance or approval is not necessary.REFERENCESAltmlewis A et al. Sex modifies the APOE-related risk ofdeveloping Alzheimer disease. Annal Khqdav0315;75(4):563-573Bird TD. Alzheimer Disease Overview. [employer](internet). Tino RA et al., editors. [facility], [place], [place]. Last revised 2014.Bob MOORE et al. Genetic counseling and testing forAlzheimer disease: Joint practice guidelines of theJewish Maternity Hospitalan College of Medical Genetics and the [facility] of Genetic Counselors. Radha in Alf2124;13(7)59601.Magda AGUIRRE. Apolipoprotein E: Implications for ADneurobiology, epidemiology and risk assessment.Neurobiology of Aging 2011;32:778-790Performed at: [employer] [id number] [id number] Director: Victor M Newell MD, Phone: [phone] at: [address] [id number] Director: Luis Robertson PhD, Phone: [phone] Start: 02-05-2025 Serologic test for syphilis Dr. Vivek Cheng MD Work Phone: Start: 02-05-2025 Vitamin D, 25-hydroxy measurement Dr. Steven Cheng MD Work Phone: Comment on above: Vitamin D StatusDeficiency: <20 ng/mL (5 0nmol/L)Insufficiency: 20-30 ng/mL (50-75 nmol/L)Sufficiency: 30-100 ng/mL (75-250 nmol/L)Toxicity: >100 ng/mL (>250 nmol/L) Plan of Treatment Date Care Activity Detail Author Start: 02-05-2025 Procedure [facility] Payers Date Payer Category Payer Private Health Insurance [id number] 2024 Self-pay [id number] 2024 Self-pay 2015 Medicare [id number] Unknown [id number] 2.16.8 [id number] Unknown [id number] 2.16.8 [id number] Unknown [id number] 2.16.8 [id number] Unknown [id number] 2.16.8 [id number] Unknown [id number] 2.16.8 [id number] Unknown [id number] 2.16.8 [id number] Social History Date Type Detail Facility Start: 02-13-[address] [facility] Never smoked tobacco (finding) [facility] Start: 1950 Sex Assigned At Female [facility] Evaluation note Note Date & Type Note Facility Evaluation note No assessment information availa ble [facility] Work Phone: Reason for referral (narrative) Note Date & Type Note Facility Reason for referral (narrative) No reason for referral information available [facility] Work Phone: Summary Purpose Family [...] Date SCREENING February 06, 2025 7:13 am Chief Complaint Admit Date SCREENING February 06, 2025 7:13 am [facility] March 14, 2025 7:03 am Additional Source Comments INFORMATION SOURCE (unrecogn ized section and content) DATE CREATED AUTHOR 11/18/2021 [facility] DATE CREATED AUTHOR AUTHOR'S ALEXANDR ATION 06/26/2025 [facility] Care Teams (unrecognized sec tion and [...] February 06, 2025 End: February 06, 2025 Team Status: Active Member Role/Relationship Status Dates Dr. Vivek Cheng MD Primary Care Provider Active Team Status: Inactive Member Role/Relationship Status Dates Dr. Vivek Cheng MD Primary Care Provider Active Start: February 05, 2025 End: February 05, 2025 Dr. Vivek Cheng MD Attending Provider Active Start: February 05, 2025 End: February 05, 2025 Dr. Vivek Cheng MD Referring Provider Active Start: February 05, 2025 End: February 05, 2025 Team Status: Inactive Member Role/Relationship Status Dates Dr. Vivek Cheng MD Primary Care Provider Active Start: February 06, 2025 End: February 06, 2025 Dr. Vivek Cheng MD Attending Provider Active Start: February 06, 2025 End: February 06, 2025 Dr. Vivek Cheng MD Referring Provider Active Start: February 06, 2025 End: February 06, 2025 Team Status: Inactive Member Role/Relationship Status Dates Dr. Vivek Cheng MD Primary Care Provider Active Start: March 14, 2025 End: March 14, 2025 Dr. Vivek Cheng MD Attending Provider Active Start: March 14, 2025 End: March 14, 2025 Dr. Vivek Cheng MD Referring Provider Active Start: March 14, 2025 End: March 14, 2025 Goals (unrecognized section and content) Goals may be documented in a n alternate sectionGoals may be documented in an alternate sectionGoals may be documented in an [...] BE BASED ON THE PRIMARY CLINICAL RECORDS. [facility] [employer] provides no warranty or guarantee of the accuracy or completeness of information in this document.
[2025-07-09] MEDS: Lactated Ringers 1,000 ML 15 ML IV (05:59)
--- NOTE | 2025-07-09 06:30 | COLBX_PTH ---
PATIENT: JOSE QUINTANILLA LOC: EN U#:[id number] AGE/SX: 74/F ROOM: RE07/09/[address]: Dr. Seymour Etienne DO : 1950 BED: DIS: 07/09/2025 SPEC #: [id number] RECD: 07/09/25 07:53 STATUS: BRENNON REQ #: [id number] MANFRED: 07/09/25 06:[address]: Seymour Etienne DEPT: SURGICAL PATHOLOGY RECD BY: Fabricio Atwood ENTERED: 07/09/25 09:59 SP TYPE: COLON BX OTHR DR: Dr. Vivek Cheng MD Tissues: A - Rectum, NOS Procedures: Surgery Specimen Level IV HEADER OPERATION: Colonoscopy, biopsy PRE-OP DIAGNOSIS: Rectal bleeding TISSUE SUBMITTED: A- Rectal mass biopsy MICROSCOPIC DIAGNOSIS A. Rectum, biopsy: * Adenocarcinoma MICROSCOPIC DESCRIPTION Slides are reviewed. GROSS DESCRIPTION A. Received in fixative is one container labeled with the patient's name and designated Rectal mass biopsy. The specimen consists of multiple irregular fragments of patten tissue that in aggregate measure 1 x 0.9 x 0.1 cm. The specimen is totally submitted in one cassette. [place] 07/09/2025 CPT:51472
--- NOTE | 2025-07-09 06:38 | HP.PCM_ITS ---
HPI - General General Date of Admission: 07/09/25 Date of Service: 07/09/25 Chief Complaint: Lower gi bleeding HPI Narrative JOSE QUINTANILLA, is a 74 F who presents [Chief Complaint: Lower GI bleeding - dark blood - on outside of stool, intermittent over the past several months, straining with BM - seen in office today with her daughter Arlen - denies any abdominal or rectal pain - 10lbs weight loss in the past 4 months, intentional - Colonoscopy - per patient a few years ago, uncertain of the findings - Father with colon CA in his 80's - lives alone - prepares her own meals - she continues to drive [facility] Medical History Mild cognitive impairment Non-smoker History of fracture of clavicle History of wrist fracture Home Medications ?Medication ?Instructions ?Recorded ?Last Taken ?Type aspirin 81 mg tablet,delayed 81 mg PO DAILY 02/13/24 1 09/05/24 History release (Adult Low Dose Aspirin) donepezil 5 mg tablet (Aricept) 5 mg PO QDAY 06/15/25 Unknown History peg 3350-sod sulf,aikyn-xvm-tdl See Rx Instructions PO .COMPLEX #2 06/15/25 Unknown Rx 178.7-7.3-0.5-1.12-0.9 gram oral mL soln (Suflave) memantine 10 mg tablet 10 mg PO BID 07/07/25 Unknow n History Allergy/AdvReac Type Severity Reaction Status Date / Time No Known Allergies Allergy Verified 07/09/25 05:49 Family History Mother Arthritis Diabetes Hypertension Father Colon cancer Heart disease Sister Arthritis Surgical History History of right knee joint replacement Hx of gastric bypass Social History Smoking Status: Never smoker alcohol intake: current details: social substance use type: does not use additional social history: pt denies vaping, denies marijuana use, denies edibles, takes aspirin and ibuprofen daily. ROS Constitutional Constitutional: Denies fatigue, fever(s), poor appetite, weight gain or weight l oss Gastrointestinal Gastrointestinal: Denies belching, bloating, change in bowel habits, change in stool character, chewing difficulty, coffee ground emesis, constipation, cramping, diarrhea, dyspepsia, dysphagia, early satiety, excessive flatus, fecal incontinence, heartburn, hematemesis, hematochezia, hemorrhoids, loose stools, melena, nausea, odynophagia, rectal bleeding, tenesmus, vomiting or weight changes Vital Signs Vital Signs Vital Signs: 07/09/25 05:50 07/09/25 05:50 07/09/25 05:54 Temperature 97.6 F L Temperature Source Temporal Pulse Rate 64 Respiratory Rate 16 Respiratory Pattern Normal Blood Pressure 116/72 Blood Pressure Mean 86 Blood Pressure Source Monitor Blood Pressure Position Sitting Blood Pressure Location Right Arm Baseline BP 116/72 Pulse Ox 100 Oxygen Delivery Method Room Air Weight Weight: 195 lb 15.855 oz Body Mass Index (BMI) 31.6 Physical Exam Const alert, oriented x3, no apparent distress and healthy appearing General Appearance: cooperative GI normal to inspection, nondistended, normoactive bowel sounds, soft to palpation, non-tender and non-distended Percussion: normal to percussion Rectal Exam: deferred Assessment & Plan Assessment/Plan (1) Rectal bleeding: PLAN: Assessment and Plan Assessment and Plan (1) Rectal bleeding: Status: Acute Medications: New peg 3350-sod sulf,pmza-oaw-jro 178.7-7.3-0.5 gram (Suflave) Take as directed for split dose bowel prep 2 mL 0RF Plan 74-year-old female with a history of memory impairment presenting with rectal bleeding. The bleeding appears to be chronic, with self-reported dark and stringy characteristics and current symptoms consistent with external hemorrhoidal bleeding. The absence of associated symptoms like abdominal pain or unintended weight loss, along with the normal hemoglobin levels, suggests the absence of significant internal bleeding or anemia. Given the patient's family history of colon cancer and interval since her last colonoscopy, further evaluation via repeat colonoscopy is warranted to rule out colorectal pathology. Patient Instructions: Colonoscopy - SuFlave ]
--- NOTE | 2025-07-09 06:41 | PRE.ANES_ITS ---
ASA Classification* ASA Classification ASA Classification: 2 Assessment & Plan Anesthesia* Anesthesia Assessment Anesthesia Assessment: Discussed sedation and/or anesthesia options, risks, benefits, and alternatives with patient/parents/legal guardian/POA. Questions invited. The patient/parents/legal guardian/POA seems to understand and agrees to proceed with anesthesia plan. Reviewed the physical assessment, medical history, allergy history and patient home medications list prior to surgery/procedure/anesthetic and documented any changes. Performed airway and anesthesia risk assessments. Anesthesia Type Anesthesia Type: MAC Anesthesia Focused Assessment* Temperature: 97.6 F Pulse Rate: 64 Blood Pressure: 116/72 Respiratory Rate: 16 Pulse Ox: 100 Airway Assessment Mouth opens: >3 cm Mallampati Score: II Labs Anesthesia Preop lab: CBC WBC, (4.4-11.0) 5.6 K/mm3 02/05/25, 10:53 RBC, (4.2-5.4) 4.14 M/mm3 L 02/05/25, 10:53 Hgb, (12.0-15.0) 12.4 g/dL 02/05/25, 10:53 Hct, (37-47) 38.0 % 02/05/25, 10:53 Plt Count, (150-450) 245 K/mm3 02/05/25, 10:53 CHEMISTRY Potassium, (3.3-5.1) 4.0 mmol/L 02/05/25, 10:53 Sodium, (133-145) 141 mmol/L 02/05/25, 10:53 BUN, (4-19) 12 mg/dL 02/05/25, 10:53 Creatinine, (0.70-1.20) 0.61 mg/dL L 02/05/25, 10:53 Glucose, (70-99) 89 mg/dL 02/05/25, 10:53 TSH, (0.300-4.200) 1.900 uIU/mL 02/05/25, 10:53 COAG PT, (11.7-14.9) 13.0 SECONDS 07/11/17, 14:33 Pre-Assessment Diagnosis/Proposed Procedure Planned Operative Procedure(s): COLONOSCOPY Anesthesia History Anesthesia History - operator control room: Anesthesia History - operator control room Hx Hospitalization No 07/07/25 09:43 Any Problems With Anesthesia Yes: VERY SLEEPY AFTER 07/07/25 09:43 ANESTHESIA Cholinesterase deficiency No 07/07/25 09:43 You/Your Family Experience No 07/07/25 09:43 fever (hyperthermia) with Relationship Recent Exposure to Contagious No 07/09/25 05:50 Disease Does patient have nerve No 07/07/25 09:43 stimulator Patient instructed to have device shut off --Does patient have Pacemaker No 07/09/25 05:50 or ICD? When Was Last Pacemaker Check QUESTION #4 FULL TEXT: You/Your Family Experience fever (hyperthermia) with Anesthesia Last Oral Intake Last Oral intake: Last Oral Intake NPO since 00:30 07/09/25 05:50 Meds taken in AM with sips of No 07/09/25 05:50 water? Meds patient instructed to take am of surgery PONV PONV - operator control room: PONV - operator control room Female Yes 07/07/25 09:43 HX of Motion Sickness No 07/07/25 09:43 HX of N/V After Surgery No 07/07/25 09:43 Non-Smoker Yes 07/07/25 09:43 Duration of Surgery greater No 07/07/25 09:43 than 60 minutes Number of Risk Factors 2 07/07/25 09:43 PONV Score Moderate Risk 07/07/25 09:43 Height & Weight Height & Weight: Anesthesia: Height & Weight Height 5 ft 6 in 07/09/25 05:50 Weight: 88.9 kg 07/09/25 05:50 Body Mass Index (BMI) 31.6 07/09/25 05:50 Respiratory Assessment Respiratory Assessment - operator control room: Respiratory Tract Infection Hx - operator control room Hx Respiratory Tract Infection No 07/07/25 09:43 STOP Sleep Apnea STOP Sleep Apnea - operator control room: STOP Sleep Apnea - operator control room Hx Hypertension No 07/07/25 09:43 Hx Sleep Apnea No 07/07/25 09:43 CPAP BIPAP Do you snore loudly (louder No 07/07/25 09:43 than talking or can be heard Do you often feel tired/ No 07/07/25 09:43 fatigued/ sleepy during daytime? Has anyone observed you stop No 07/07/25 09:43 breathing during sleep? STOP Results Negative 07/07/25 09:43 QUESTION #5 FULL TEXT : Do you snore loudly (louder than talking or can be h eard through closed doors)? 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 Specify any problems Hx of Preganancy in last 3 No 07/07/25 09:43 Months Nurse Filling Out Transfusion [id number] 07/07/25 09:43 & Questions: Date: 07/07/25 07/07/25 09:43 Time: 09:46 07/07/25 09:43 Patient unable to answer at this time (ie. confused, unrespo /Reproduction History /Reproductive History - operator control room: /Reproductive Hx- operator control room Hx Now Gestational Age (in weeks): EDC: Hx Hx Para Hx Section SAB Does the father of the baby or his family experience fever w Father of the baby Malignant Hypertension history comment Active Medications Active Medications: Current Medications Generic Name Dose Route Start Last Admin Trade Name Freq PRN Reason Stop Dose Admin Lactated Ringer's 1,000 mls @ 15 mls/hr 07/09/25 05:45 07/09/25 05:59 IV 15 mls/hr .Q48H KENNY Administration PFSH Medical History Mild cognitive impairment Non-smoker History of fracture of clavicle History of wrist fracture Home Medications ?Medication ?Instructions ?Recorded ?Last Taken ?Type aspirin 81 mg tablet,delayed 81 mg PO DAILY 02/13/24 1 09/05/24 History release (Adult Low Dose Aspirin) donepezil 5 mg tablet (Aricept) 5 mg PO QDAY 06/15/25 Unknown History peg [id number]-sod [id number] See Rx Instructions PO .COMPLEX #2 06/15/25 Unknown Rx 178.7-7.3-0.5-1.12-0.9 gram oral mL soln (Suflave) memantine 10 mg tablet 10 mg PO BID 07/07/25 Unknow n History Allergy/AdvReac Type Severity Reaction Status Date / Time No Known Allergies Allergy Verified 07/09/25 05:49 Family History Mother Arthritis Diabetes Hypertension Father Colon cancer Heart disease Sister Arthritis Surgical History History of right knee joint replacement Hx of gastric bypass Social History Smoking Status: Never smoker alcohol intake: current details: social substance use type: does not use additional social history: pt denies vaping, denies marijuana use, denies edibles, takes aspirin and ibuprofen daily. Review of Systems (Anesthesia) ROS Narrative System reviewed and no additional complaints, except as documented.
--- NOTE | 2025-07-09 07:16 | OP.COLON_ITS ---
Patient Name: Radha Jeronimo Procedure Date: 07/09/2025 6:44 AM Date of : 1950 Age: 74 Procedure: Colonoscopy Indications: Hematochezia Providers: Seymour Etienne DO Referring MD: Vivek Cheng MD Medicines: Monitored Anesthesia Care Patient Profile: This is a 74 year old female. Refer to note in patient chart for documentation of history and physical. Last Colonoscopy: several years ago. Complications: No immediate complications. Procedure: Pre-Anesthesia Assessment: - Prior to the procedure, a History and Physical was performed, and patient medications and allergies were reviewed. The patient is competent. The risks and benefits of the procedure and the sedation options and risks were discussed with the patient. All questions were answered and informed consent was obtained. Patient identification and proposed procedure were verified by the physician in the pre-procedure area. Mental Status Examination: alert and oriented. Airway Examination: normal oropharyngeal airway and neck mobility. Respiratory Examination: clear to auscultation. CV Examination: normal. Prophylactic Antibiotics: The patient does not require prophylactic antibiotics. Prior Anticoagulants: The patient has taken no anticoagulant or antiplatelet agents except for NSAID medication. ASA Grade Assessment: II - A patient with mild systemic disease. After reviewing the risks and benefits, the patient was deemed in satisfactory condition to undergo the procedure. The anesthesia plan was to use monitored anesthesia care (MAC). Immediately prior to administration of medications, the patient was re-assessed for adequacy to receive sedatives. The heart rate, respiratory rate, oxygen saturations, blood pressure, adequacy of pulmonary ventilation, and response to care were monitored throughout the procedure. The physical status of the patient was re-assessed after the procedure. After I obtained informed consent, the scope was passed under direct vision. Throughout the procedure, the patient's blood pressure, pulse, and oxygen saturations were monitored continuously. The colonoscope was introduced through the anus and advanced to the cecum, identified by appendiceal orifice and ileocecal valve. The colonoscopy was performed without difficulty. The patient tolerated the procedure well. The quality of the bowel preparation was adequate. The terminal ileum, ileocecal valve, appendiceal orifice, and rectum were photographed. Scope In: 6:48:35 AM Scope Withdrawal Time 0 hours 9 minutes 25 seconds Scope Out: 7:06:39 AM Total Procedure Duration Time 0 hours 18 minutes 4 seconds Findings: The perianal and digital rectal examinations were normal. A non-obstructing large mass was found in the rectum and in the recto-sigmoid colon. The mass was non-circumferential. The mass measured four cm in length. Oozing was present. Biopsies were taken with a cold forceps for histology. Verification of patient identification for the specimen was done. Estimated blood loss was minimal. A diffuse area of mild melanosis was found in the entire colon. A 5 mm polyp was found in the rectum. The polyp was sessile. There was a medium-sized lipoma, in the ascending colon. 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 Biopsied. - Melanosis in the colon. - One 5 mm polyp in the rectum. - Medium-sized lipoma in the ascending colon. Recommendation: - Discharge patient to home. - Resume previous diet. - Continue present medications. - Await pathology results. - Repeat colonoscopy in 1 year for surveillance. - Refer to an oncologist at the next available appointment. Procedure Code(s): --- Professional --- 46909, Colonoscopy, flexible; with biopsy, single or multiple CPT copyright 2021 [employer]. All rights reserved. The codes documented in this report are preliminary and upon botany professor review may be revised to meet current compliance requirements. Seymour Etienne DO 07/09/2025 7:15:38 AM This report has been signed electronically. Number of Addenda: 0 Note Initiated On: 07/09/2025 6:44 AM
--- NOTE | 2025-07-09 07:16 | OP.PROVAT_ITS ---
07/09/2025 Vivek Cheng MD [address] [place] [address] Re : Colonoscopy procedure for Radha Jeronimo Dear Dr. Cheng This procedure was performed on June. 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 Biopsied. - Melanosis in the colon. - One 5 mm polyp in the rectum. - Medium-sized lipoma in the ascending colon. Recommendations : - Discharge patient to home. - Resume previous diet. - Continue present medications. - Await pathology results. - Repeat colonoscopy in 1 year for surveillance. - Refer to an oncologist at the next available appointment. My findings are described in the full procedure note, which is enclosed. If I can be of further assistance, please feel free to contact me at . Sincerely, Seymour Friend, 07/09/2025 7:15:38 AM This report has been signed electronically.
--- NOTE | 2025-07-09 07:22 | PCM.POST.ANE ---
Anesthesia: Postop Eval I Current Vital Signs Temperature: 97 F Pulse Rate: 60 Blood Pressure: 85/62 Respiratory Rate: 16 Pulse Ox: 96 Oxygen Delivery Method: Room Air Assessment Airway patent: Yes Spontaneous unlabored respirations: Yes Mental status: Awake and Calm nausea: No Vomiting: No Anesthesia Complication: No Fluid Hydration Crystalloid volume administer (ml): 800 Total IV fluid infused: 800 Progress Note Anesthesia document: Postop Eval 1 completed: Yes
--- NOTE | 2025-07-09 10:46 | PCM.POSTANE2 ---
Anesthesia Postop Eval I Sum Postop Eval Completion status Anesthesia document: Postop Eval 1 completed: Yes Anesthesia Postop Eval I Summary Anesthesia Postop Eval I Summary: Anesthesia Postop Eval I: Assessment Summary Airway patent Yes 07/09/25 07:24 [email or web address] Spontaneous unlabored Yes 07/09/25 07:24 [email or web address] respirations Mental status Awake,Calm 07/09/25 07:24 [email or web address] nausea No 07/09/25 07:24 [email or web address] Vomiting No 07/09/25 07:24 [email or web address] Anesthesia Postop Eval I: Fluid Summary Crystalloid volume administer 800 07/09/25 07:24 [email or web address] (ml) Colloids volume administered ( ml) Blood Product volume administered (ml) Total IV fluid infused 800 07/09/25 07:24 [email or web address] Anesthesia Postop Eval I: Summary Notes Anesthesia Complication No 07/09/25 07:24 [email or web address] Anesthesia Complication Comment: Post-operative progress note Anesthesia: Postop Eval II Evaluation Mental status: Awake Pain Level: 0 nausea: No Vomiting: No
== END 2025-07-09 08:04 | disposition home or self-care (01) ==
LOC: EN 05:52 → AC 05:53
PROVIDERS: PCP Family Medicine Geriatric Medicine; Referring Provider Family Medicine Geriatric Medicine; Visit Provider Internal Medicine Gastroenterology
PROC: 0DJD8ZZ Inspection of Lower Intestinal Tract, Via Natural or Artificial Opening Endoscopic (ICD-10-PCS; CPT 45378; principal; 2025-07-09 06:25)
DX: C20 Malignant neoplasm of rectum (principal); D17.5 Benign lipomatous neoplasm of intra-abdominal organs; Z79.82 Long term (current) use of aspirin
CPT/HCPCS: 45380; 88305; J2405

== ENCOUNTER → 2025-07-27 | Outpatient (CLI) | payer MEDICARE, OTHER, SELFPAY ==
--- NOTE | 2025-07-27 15:59 | CT_ITS ---
PROCEDURE: CT CHEST, ABD, PEL W/CONTRAST 07/27/2025 REASON FOR EXAM: STAGING RECTAL CANCER TECHNIQUE: Chest, abdomen and pelvis CT with intravenous contrast. Coronal and Sagittal reconstruction series were provided. One or more dose reduction techniques were used (e.g., Automated exposure control, adjustment of the mA and/or kV according to patient size, use of iterative reconstruction technique. PATIENT PREPARATION: Per protocol ORAL CONTRAST TYPE: None.. CONTRAST: Isovue 370 VOLUME: 100mL . RADIATION DOSE SUMMARY: CTDlvol: 17.2 mGy DLP: 1500.13 mGycm COMPARISON: None FINDINGS: CT CHEST: Hardware: None Lymph nodes: No significant lymph nodes are seen. Heart and Vasculature: The heart is nonenlarged. No pericardial effusion. No significant coronary artery calcification is seen. Lungs and Airways: Lungs are clear. No pulmonary nodules present. Pleura: No pleural effusion. Bones: Degenerative changes of the thoracic spine. CT ABDOMEN/PELVIS: Liver: Diffuse fatty infiltration. Gallbladder: Surgically absent. Spleen: Normal size. Pancreas: Normal size without evidence of mass surrounding inflammation or ductal dilation. Adrenals: Unremarkable Kidneys: Normal renal sizes. No hydronephrosis. Bladder: Unremarkable Reproductive Organs: Normal uterine size and contour. Ovaries are unremarkable. Bowel: Fecal material seen in the right hemicolon. There is evidence of asymmetrical wall thickening of the rectum along the left aspect of the rectum and posteriorly. Appendix: The appendix is not identified. There is no inflammatory process identified in the right lower quadrant to suggest appendicitis. Lymph nodes: Unremarkable. Vasculature: Mild diffuse atherosclerotic calcifications are noted. Peritoneum / Retroperitoneum: Central ventral hernia containing a nondilated small bowel loop. The neck of the hernia measures 3.3 cm. Bones: Degenerative changes of the spine. CT/CT Chest, Abd, Pel w/Contrast IMPRESSION: Fatty infiltration of the liver. Small ventral hernia containing a nondilated small bowel loop. Asymmetrical thickening of the rectum along the left lateral wall and posterior ly. Reading Location: [place] [id number]
== END | disposition home or self-care (01) ==
LOC: CT 15:57
PROVIDERS: PCP Family Medicine Geriatric Medicine; Referring Provider Internal Medicine Hematology & Oncology; Visit Provider Internal Medicine Hematology & Oncology
DX: C20 Malignant neoplasm of rectum (principal)
CPT/HCPCS: 71260; 74177; Q9967

== ENCOUNTER → 2025-07-31 | Outpatient (CLI) | payer MEDICARE, OTHER, SELFPAY ==
--- NOTE | 2025-07-31 08:16 | NM_ITS ---
PROCEDURE: BONE SCAN WHOLE BODY 07/31/2025 REASON FOR EXAM: STAGING RECTAL CANCER TECHNIQUE: Procedure Code: NMBO Modality: NM Procedure: BONE SCAN WHOLE BODY Anterior and posterior whole-body bone scan. RADIOPHARMACEUTICAL: 26 mCi Technetium-99m MDP IV COMPARISON: None FINDINGS: Whole-body images demonstrate reverse S shaped thoracolumbar scoliosis. Degenerative changes are seen throughout the spine. Asymmetric right acromioclavicular joint degenerative changes are seen. Degenerative changes seen of the bilateral 1st carpal-metacarpal joints, [id number]. Right knee prosthesis noted. Left knee prominent degenerative changes are seen. Degenerative changes seen of the bilateral ankles and feet, as well. No findings are seen to suggest the presence of osseous metastatic disease. NM/Bone Scan Whole Body IMPRESSION: No scintigraphic evidence of osseous metastatic disease. Reading Location: [id number]
--- OUTSIDE RECORDS SUMMARY | 2025-07-31 08:34 | XMS RPT_ITS | CCD ---
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 Vivek Walker Primary Care Provider [phone] Prosper JIN, Dr. Vivek Walker Attending Provider [...] 22, 2017 1:00am April 15, 2024 9:12am Izctvvxdxwhm-Wdbk-Qq lic Acid (Hm Complete Women Tablet) 1 [...] Visit Repor ton 06-15-2025 Gastroenterology Visit Report [facility] Gastroenterology [address] [place] [address] OFFICE VISIT Date of Service: 06/15/25 MR#: [id number] Acct: [id number] Name: JOSE QUINTANILLA LEWIS Rep #: [id number] : 1950 Provider: OPAL haines Age/Sex: 74/F Location: [facility] Status: Signed Intake Vital Signs 03/05/24 10:06 06/15/25 10:14 Height 5 ft 6 in 5 ft 6 in Weight: 197 lb 6 oz BMI 31.8 BP 113/75 Respiration 16 Pulse 63 Temp 97.8 F Temp Source Temporal Pulse Oximetry (%) 95 Oxygen Delivery Method room air Intake Visit Reasons: BLOOD IN STOOL Chief Complaint: establishing care Field Instructor Required: No Accompanied by: Daughter Is patient in pain?: No Allergies No Known Allergies Allergy (Verified 06/15/25 10:20) Medications ???Medication ???Instructions ???Recorded ???Confirmed ???Type aspirin 81 mg tablet,delayed 81 mg PO DAILY 02/13/24 06/15/25 H istory release (Adult Low Dose Aspirin) donepezil 5 mg tablet (Aricept) 5 mg PO QDAY 06/15/25 06/15/25 His tory peg 3350-sod sulf,jwpsu-ebz-olw See Rx Instructions PO .COMPLEX #2 06/15/25 06/15/25 Rx 178.7-7.3-0.5-1.12-0. 9 gram oral mL soln (Suflave) Have you fallen in the past year?: No [facility] History of fracture of clavicle [...] bleeding: Status: Acute Medications: New peg 3350-sod sulf,ohxa-grz-kpn 178.7-7.3-0.5 gram (Suflave) Take as directed for split dose bowel prep 2 mL 0RF Plan 74-year-old female with a history of memory impairment presenting with rectal bleeding. The bleeding appears to be chronic, with self-reported dark and stringy characteristics and current symptoms (more content not included)... Normal [facility] Magnetic resonance imaging r eportOrdered By: Aryan Gerber on 03-15-2025 Study report [facility] Imaging Services [address] [place] [address] Brain without Contrast MR#: [id number] Acct: [id number] Name: JOSE QUINTANILLA LEWIS Rep #: [id number] : 1950 F 74 From: Stew Gerber MD PCP: Dr. Vivek Cheng MD Status: REG C Study:Brain without Contrast Date of Exam: 03/14/25 Exam# [id number] Ordering Dr: Vivek Cheng MD PROCEDURE: BRAIN [...] IMPRESSION: No acute intracranial abnormality. Reading Location: [facility] CC: Dr. Vivek Cheng MD ~ Convalescent Sitter: Signed [facility] Brain without Contraston Brain without Contrast [facility] Imaging Services [address] [place], [place] [address] Brain without Contrast MR#: [id number] Acct: [id number] Name: JOSE QUINTANILLA Rep #: [id number] : 1950 F 74 From: Aryan Gerber MD PCP: Dr. Vivek Cheng MD Status: REG CLI Study: Brain without Contrast Date of Exam: 03/14/25 Exam# [id number] Ordering Dr: Vivek Cheng MD PROCEDURE: BRAIN [...] IMPRESSION: No acute intracranial abnormality. Reading Location: [facility] CC: Dr. Vivek Cheng MD Convalescent Sitter: Signed Normal [facility] L3410.9992on 02-13-2025 [facility] Misc. COMMENT Normal . [facility] Comment on above: Order Comment: [id number] 0APOE WB LAV RT Result Comment: Test Ordered: [id number] APOE Alzheimer's Risk Methodology: Comment UY Reference Range: . Patient DNA is assayed for the APOE genotype by PCR amplification of a specific region in exon 4 of the APOE gene followed by digestion with restriction enzyme [employer] I and separation of fragments by polyacrylamide [...] For inquiries or genetic consultation, please call [facility] at . Comment: Comment UY Reference Range: [...] the APOE4 variant and by approximately 10 cb20-tyls for individuals with two copies of this [...] Neurol 2014;75(4):563-573 Roby BARRIENTOS. Alzheimer Disease Overview. [employer] (internet). Tino VAZQUEZ et al., editors. [facility]: [facility], [place], [place]. Last revised 2014. Bob JS et al. Genetic counseling and testing for Alzheimer disease: Joint practice guidelines of the [place] [employer] and the National Society of Genetic Counselors. Radha in Med 2011;13(6597-605. Magda AGUIRRE. Apolipoprotein E: Implications for AD neurobiology, epidemiology and risk assessment. Neurobiology of Aging 2011;32:778-790 Performed at: [facility] [address] (more content not included)... Performed By: #### L 506.1000, L501.9520, L100.0100, L500.4050 #### [facility] [address] [place], [address] L3410.9994on 02-10-2025 [facility] Mis. 2 COMMENT Normal . [facility] Comment on above: Order Comment: 35550 5Bet Amyloid TALL LAV PLASMA FZ Result Comment: Test Ordered: 678309 Beta Amyloid 42/40 Ratio Test(s) 795822-Jezr-ylshfwl 42/40 Ratio; 707403- Beta-amyloid 42; 601839-Riwz-rphldzy 40 was developed and its performance characteristics determined by [facility]. It has not been cleared or approved [...] and physical, neurological, and neuropsychological examinations. Methodology: [employer] Chemiluminescence Enzyme Immunoassay (CLEIA). Values obtained with different methods cannot be used interchangeably. Performed at: [address] [id number] Fusing Machine Feeder: Binu Sandoval MD, Phone: [phone] Performed at: [address] [id number] Fusing Machine Feeder: Luis Robertson PhD, Phone: [phone] Performed By: #### L 506.1000, L549.2812, L100.0100, L500.4050 #### [facility] [address] [place] [address]. [place], [address] L3410.9996on 02-10-2025 [facility]. 3 COMMENT Normal . [facility] Comment on above: Order Comment: 23932 0P-YNZ213 TALL LAV PLASMA FZ Result Comment: Test Ordered: [id number] p-hrp117 Test(s) 415488-i-pnr343 was developed and its performance characteristics determined by [employer]. It has not been cleared or approved by the Food and Drug Administration. p-ytf987 0.29 [H ] pg/mL L9 Reference Range: 0.00-0.18 Clinical cutoff value was established using samples from a patient cohort characterized with amyloid PET data. A p-izi189 value of >0.18 is a reported surrogate marker for beta amyloid pathology, and can be used to facilitate biological identification of Alzheimer's disease (1). p-hcw335 has also been used in clinical trials to monitor patients on anti-amyloid therapy (2,3). Test performed by [employer] chemiluminescent enzyme immunoassay (CLEIA). Values obtained with different methods cannot be used interchangeably. The validated limit of quantification is 0.06 pg/mL. Assay detection limit is 0.03 pg/mL. Footnotes Comment L9 Reference Range: . 1. Rahul Arora, et al. Diagnostic Accuracy of a Plasma Phosphorylated Tau 217 Immunoassay for Alzheimer Disease Pathology. SHANNON neurology (2023). 2. Rahul Arora, et al. Differential roles of A42/40, p-wue377 and p-ips457 for Alzheimer's trial selection and disease monitoring. Nature medicine 28.12 (2021): 6344-4291. 3. Andrew CR, Karla M, Anabell SC, et al. Association of Donanemab Treatment With Exploratory Plasma Biomarkers in Early Symptomatic Alzheimer Disease: A Secondary Analysis of the TRAILBLAZER-ALZ Randomized Clinical Trial. SHANNON Neurol. 2021;79(12):4550-2210. Performed at: [facility] [employer] [address] [place] [id number] Fusing Machine Feeder: Ezequiel Gomes MD, Phone: [phone] Performed at: - [facility] [id number] Fusing Machine Feeder: Lusi Robertson PhD, Phone: [phone] Performed By: #### L 506.6882, V428.9128, L100.7289, V854.8596 #### [facility] [address] [place] [address]. [place], [address] Breast imaging reportOrdered By: Dayanara Morgan on 02-06-2025 Study report [facility] Imaging Services [address] [place] [address] SCRN MAMM (CAD)W/BEATRIZ BILAT MR#: [id number] Acct: [id number] Name: JOSE QUINTANILLA LEWIS Rep #: [id number] : 1950 F 74 From: Deborah Morgan MD PCP: Dr. Vivek Cheng MD Status: REG C Study:SCRN MAMM (CAD)W/BEATRIZ BILAT Date of Exa m: 02/06/25 Exam# [id number] Ordering Dr: Vivek Cheng MD EXAM: SCRN [...] be mailed to the patient. Reading Location: [facility] CC: Dr. Vivek Cheng MD ~ Convalescent Sitter: Signed [facility] SCRN MAMM (CAD)W/BEATRIZ BILATo n 02-06-2025 SCRN MAMM (CAD)W/BEATRIZ BILAT [facility] Imaging Services [address] [place], [place] [address] SCRN MAMM (CAD)W/BEATRIZ BILAT MR#: [id number] Acct: [id number] Name: JOSE QUINTANILLA LEWIS Rep #: [id number] : 1950 F 74 From: Dayanara Morgan MD PCP: Dr. Vivek Cheng MD Status: REG CLI Study: SCRN MAMM (CAD)W/BEATRIZ BILAT Date of Exam: 01/19 Exam# [id number] Ordering Dr: Vivek Cheng MD EXAM: SCRN [...] be mailed to the patient. Reading Location: [facility] CC: Dr. Vivek Cheng MD Convalescent Sitter: Signed Normal [facility] Absolute lymphocyte countOrd ered By: Vivek Cheng on 02-05-2025 Lymphocytes Auto (Unsp spec) [#/Vol] 1.25 10*3/uL 0.83-4.51 [facility] Absolute neutrophil countOrd ered By: Vivek Cheng on 02-05-2025 Neutrophils (Bld) [#/Vol] 3.7 10*3/uL 2.0-7.7 [facility] Anion gap in Serum or Plasma Ordered By: Vivek Cheng on 02-05-2025 Anion gap [Moles/Vol] 11 mmol/L 5-15 [facility] Automated lymphocyte count a s percentage of total leukocytesOrdered By: Vivek Cheng on 02-05-2025 Lymphocytes/100 WBC Auto (Unsp spec) 22.4 % [facility] BUN/creatinine ratioOrdered By: Vivek Cheng on 02-05-2025 Urea nitrogen/Creatinine [Mass ratio] 20.3 mg/mg High - [facility] Basophil percentageOrdered B y: Vivek Cheng on 02-05-2025 Basophils/100 WBC (Bld) 0.4 % 0-1 [facility] Bilirubin, totalOrdered By: Vivek Cheng on 02-05-2025 Bilirubin [Mass/Vol] 0.42 mg/dL 0.00-1.30 [facility] CBC W/Diff, Automatedon 01-18 Absolute Lymph 1.25 X10 3/uL Normal 0.83-4.51 [facility] Comment on above: Performed By: #### L 3410.9994, L100.0100, L3410.9992, L500.4050, L3410.9996, L501.9520, L509.8002, L503.0106, L506.1001, L506.0200 #### [facility] [address] [facility] [place], [address] Absolute Neut 3.7 X10 3/uL Normal 2.0-7.7 [facility] Comment on above: Performed By: #### L 3410.9994, L100.0100, L3410.9992, L500.4050, L3410.9996, L501.9520, L509.8002, L503.0106, L506.1001, L506.0200 #### [facility] [address] [facility] [place], [address] Basophils/100 WBC (Bld) 0.4 % Normal 0-1 [facility] Comment on above: Performed By: #### L 3410.9994, L100.0100, L3410.9992, L500.4050, L3410.9996, L501.9520, L509.8002, L503.0106, L506.1001, L506.0200 #### [facility] [address] [place], [address] Eosinophils/100 WBC (Bld) 0.9 % Normal 0-5 [facility] Comment on above: Performed By: #### L 3410.9994, L100.0100, L3410.9992, L500.4050, L3410.9996, L501.9520, L509.8002, L503.0106, L506.1001, L506.0200 #### [facility] [address] [place], [address] Erythrocyte distribution width (RBC) [Ratio] 13.6 % Normal 11.6-14.6 [facility] Comment on above: Performed By: #### L 3410.9994, L100.0100, L3410.9992, L500.4050, L3410.9996, L501.9520, L509.8002, L503.0106, L506.1001, L506.0200 #### [facility] [address] [place], [address] Hematocrit (Bld) [Volume fraction] 38.0 % Normal 37-47 [facility] Comment on above: Performed By: #### L 3410.9994, L100.0100, L3410.9992, L500.4050, L3410.9996, L501.9520, L509.8002, L503.0106, L506.1001, L506.0200 #### [facility] [address] [place], [address] Hemoglobin (Bld) [Mass/Vol] 12.4 g/dL Normal 12.0-15.0 [facility] Comment on above: Performed By: #### L 3410.9994, L100.0100, L3410.9992, L500.4050, L3410.9996, L501.9520, L509.8002, L503.0106, L506.1001, L506.0200 #### [facility] [address], [address] IG% 0.000 Normal 0.0-0.9 [facility] Comment on above: Result Comment: IG% - Immature Granulocytes (promyelocytes, myelocytes and metamyelocytes) > 1% indicates that a LEFT SHIFT is Present. Performed By: #### L 3410.9994, L100.0100, L3410.9992, L500.4050, L3410.9996, L501.9520, L509.8002, L503.0106, L506.1001, L506.0200 #### [facility] [address] [facility] [place], [address] Lymphocytes/100 WBC (Bld) 22.4 % Normal 19-41 [facility] Comment on above: Performed By: #### L 3410.9994, L100.0100, L3410.9992, L500.4050, L3410.9996, L501.9520, L509.8002, L503.0106, L506.1001, L506.0200 #### [facility] [address] [facility] [place], [address] MCH (RBC) [Entitic mass] 30.0 pg Normal 27.0-32.0 [facility] Comment on above: Performed By: #### L 3410.9994, L100.0100, L3410.9992, L500.4050, L3410.9996, L501.9520, L509.8002, L503.0106, L506.1001, L506.0200 #### [facility] [address] [facility] [place], [address] MCHC (RBC) [Mass/Vol] 32.6 g/dL Normal 32-36 [facility] Comment on above: Performed By: #### L 3410.9994, L100.0100, L3410.9992, L500.4050, L3410.9996, L501.9520, L509.8002, L503.0106, L506.1001, L506.0200 #### [facility] [address] [facility] [place], [address] MCV (RBC) [Entitic vol] 91.8 fL Normal 81-99 [facility] Comment on above: Performed By: #### L 3410.9994, L100.0100, L3410.9992, L500.4050, L3410.9996, L501.9520, L509.8002, L503.0106, L506.1001, L506.0200 #### [facility] [address] [facility] [place], [address] ( Monocytes/100 WBC (Bld) 9.8 % Normal 0-10 [facility] Comment on above: Performed By: #### L 3410.9994, L100.0100, L3410.9992, L500.4050, L3410.9996, L501.9520, L509.8002, L503.0106, L506.1001, L506.0200 #### [facility] [address] [facility] [place], [address] Neutrophils/100 WBC (Bld) 66.5 % Normal 47-70 [facility] Comment on above: Performed By: #### L 3410.9994, L100.0100, L3410.9992, L500.4050, L3410.9996, L501.9520, L509.8002, L503.0106, L506.1001, L506.0200 #### [facility] [address] [facility] [place], [address] Nucleated RBC (Bld) [#/Vol] 0 10*3/uL Normal 0-5 [facility] Comment on above: Performed By: #### L 3410.9994, L100.0100, L3410.9992, L500.4050, L3410.9996, L501.9520, L509.8002, L503.0106, L506.1001, L506.0200 #### [facility] [address] [place], [address] Platelet mean volume (Bld) [Entitic vol] 10.7 fL Normal 6.2-12.0 [facility] Comment on above: Performed By: #### L 3410.9994, L100.0100, L3410.9992, L500.4050, L3410.9996, L501.9520, L509.8002, L503.0106, L506.1001, L506.0200 #### [facility] [address] [place], [address] (152 Platelets (Bld) [#/Vol] 245 10*3/uL Normal 150-450 [facility] Comment on above: Performed By: #### L 3410.9994, L100.0100, L3410.9992, L500.4050, L3410.9996, L501.9520, L509.8002, L503.0106, L506.1001, L506.0200 #### [facility] [address] [place], [address] RBC (Bld) [#/Vol] 4.14 10*6/uL Low 4.2-5.4 [facility] Comment on above: Performed By: #### L 3410.9994, L100.0100, L3410.9992, L500.4050, L3410.9996, L501.9520, L509.8002, L503.0106, L506.1001, L506.0200 #### [facility] [address] [place], [address] RDW SD 46.3 fl High 35.1-43.9 [facility] Comment on above: Performed By: #### L 3410.9994, L100.0100, L3410.9992, L500.4050, L3410.9996, L501.9520, L509.8002, L503.0106, L506.1001, L506.0200 #### [facility] [address] [place], [address] WBC (Bld) [#/Vol] 5.6 10*3/uL Normal 4.4-11.0 [facility] Comment on above: Performed By: #### L 3410.9994, L100.0100, L3410.9992, L500.4050, L3410.9996, L501.9520, L509.8002, L503.0106, L506.1001, L506.0200 #### [facility] [address] [place], [place], [id number] (089) Carbon dioxide, total [Moles /volume] in Central venous bloodOrdered By: Vivek Cheng on 02-05-2025 CO2 [Moles/Vol] 25.8 mmol/L 21.0-32.0 [facility] Chloride assayOrdered By: Steven Cheng on 02-05-2025 Chloride [Moles/Vol] 104 mmol/L 98-108 [facility] Comprehensive Metabolic Prof ilon 02-05-2025 Albumin [Mass/Vol] 3.9 g/dL Normal 3.4-4.8 [facility] Comment on above: Performed By: #### L 3410.9994, L100.0100, L3410.9992, L500.4050, L3410.9996, L501.9520, L509.8002, L503.0106, L506.1001, L506.0200 #### [facility] [address] [place], [address] Albumin/Globulin [Mass ratio] 1.1 {ratio} Normal 0.9-2.4 [facility] Comment on above: Performed By: #### L 3410.9994, L100.0100, L3410.9992, L500.4050, L3410.9996, L501.9520, L509.8002, L503.0106, L506.1001, L506.0200 #### [facility] [address] [place], [place], [id number] (306) ALK PHOS 76 U/L Normal 35-104 [facility] Comment on above: Performed By: #### L 3410.9994, L100.0100, L3410.9992, L500.4050, L3410.9996, L501.9520, L509.8002, L503.0106, L506.1001, L506.0200 #### [facility] [address] [place], [place], [id number] (363) ALT [Catalytic activity/Vol] 11 U/L Normal <=34 [facility] Comment on above: Performed By: #### L 3410.9994, L100.0100, L3410.9992, L500.4050, L3410.9996, L501.9520, L509.8002, L503.0106, L506.1001, L506.0200 #### [facility] [address] [place], [place], [id number] (387) AST [Catalytic activity/Vol] 18 U/L Normal <=31 [facility] Comment on above: Performed By: #### L 3410.9994, L100.0100, L3410.9992, L500.4050, L3410.9996, L501.9520, L509.8002, L503.0106, L506.1001, L506.0200 #### [facility] [address] [place], [place], [phone] (081) Bilirubin [Mass/Vol] 0.42 mg/dL Normal 0.00-1.30 [facility] Comment on above: Performed By: #### L 3410.9994, L100.0100, L3410.9992, L500.4050, L3410.9996, L501.9520, L509.8002, L503.0106, L506.1001, L506.0200 #### [facility] [address] [place], [address] BUN/CRE 20.3 RATIO High 10-20 [facility] Comment on above: Performed By: #### L 3410.9994, L100.0100, L3410.9992, L500.4050, L3410.9996, L501.9520, L509.8002, L503.0106, L506.1001, L506.0200 #### [facility] [address] [facility] [place], [address] Calcium [Mass/Vol] 9.2 mg/dL Normal 7.6-11.0 [facility] Comment on above: Performed By: #### L 3410.9994, L100.0100, L3410.9992, L500.4050, L3410.9996, L501.9520, L509.8002, L503.0106, L506.1001, L506.0200 #### [facility] [address] [place], [address] Chloride [Moles/Vol] 104 mmol/L Normal 98-108 [facility] Comment on above: Performed By: #### L 3410.9994, L100.0100, L3410.9992, L500.4050, L3410.9996, L501.9520, L509.8002, L503.0106, L506.1001, L506.0200 #### [facility] [address] [place], [address] CO2 [Moles/Vol] 25.8 mmol/L Normal 21.0-32.0 [facility] Comment on above: Performed By: #### L 3410.9994, L100.0100, L3410.9992, L500.4050, L3410.9996, L501.9520, L509.8002, L503.0106, L506.1001, L506.0200 #### [facility] [address] [place], [place], [id number] (602) Creatinine [Mass/Vol] 0.61 mg/dL Low 0.70-1.20 [facility] Comment on above: Performed By: #### L 3410.9994, L100.0100, L3410.9992, L500.4050, L3410.9996, L501.9520, L509.8002, L503.0106, L506.1001, L506.0200 #### [facility] [address] [place], [address] (322) GAP 11 Normal 5-15 [facility] Comment on above: Performed By: #### L 3410.9994, L100.0100, L3410.9992, L500.4050, L3410.9996, L501.9520, L509.8002, L503.0106, L506.1001, L506.0200 #### [facility] [address] [place], [address] (341) GFR/1.73 sq M.predicted among non-blacks MDRD (S/P/Bld) [Vol rate/Area] 94 mL/min/{1.73_m2} Normal >60 [facility] Comment on above: Result Comment: mL/m in/1.73m2 CKD-EPI Creatinine Equation (2020) Performed By: #### L 3410.9994, L100.0100, L3410.9992, L500.4050, L3410.9996, L501.9520, L509.8002, L503.0106, L506.1001, L506.0200 #### [facility] [address] [place], [address] (928) Globulin (S) [Mass/Vol] 3.6 g/dL Normal 2.2-4.2 [facility] Comment on above: Performed By: #### L 3410.9994, L100.0100, L3410.9992, L500.4050, L3410.9996, L501.9520, L509.8002, L503.0106, L506.1001, L506.0200 #### [facility] [address] [place], [place], [id number] (502) Glucose [Mass/Vol] 89 mg/dL Normal 70-99 [facility] Comment on above: Performed By: #### L 3410.9994, L100.0100, L3410.9992, L500.4050, L3410.9996, L501.9520, L509.8002, L503.0106, L506.1001, L506.0200 #### [facility] [address] [place], [place], [id number] (078) Potassium [Moles/Vol] 4.0 mmol/L Normal 3.3-5.1 [facility] Comment on above: Performed By: #### L 3410.9994, L100.0100, L3410.9992, L500.4050, L3410.9996, L501.9520, L509.8002, L503.0106, L506.1001, L506.0200 #### [facility] [address] [place], [place], [phone] (221) Sodium [Moles/Vol] 141 mmol/L Normal 133-145 [facility] Comment on above: Performed By: #### L 3410.9994, L100.0100, L3410.9992, L500.4050, L3410.9996, L501.9520, L509.8002, L503.0106, L506.1001, L506.0200 #### [facility] [address] [place], [address] T PROT 7.5 g/dL Normal 5.9-8.4 [facility] Comment on above: Performed By: #### L 3410.9994, L100.0100, L3410.9992, L500.4050, L3410.9996, L501.9520, L509.8002, L503.0106, L506.1001, L506.0200 #### [facility] [address] [facility] [place], [place], [id number] Urea nitrogen [Mass/Vol] 12 mg/dL Normal - [facility] Comment on above: Performed By: #### L 3410.9994, L100.0100, L3410.9992, L500.4050, L3410.9996, L501.9520, L509.8002, L503.0106, L506.1001, L506.0200 #### [facility] [address] [facility] [place], [place], [id number] Eosinophil percentageOrdered By: Vivek Suttonok on 02-05-2025 Eosinophils/100 WBC (Bld) 0.9 % 0-5 [facility] Erythrocyte distribution wid th ratioOrdered By: [facility] on 02-05-2025 Erythrocyte distribution width (RBC) [Ratio] 13.6 % 11.6-14.6 [facility] Erythrocyte distribution wid th standard deviationOrdered By: [facility] on 02-05-2025 Erythrocyte distribution width (RBC) [Ratio] 46.3 fl High 35.1-43.9 [facility] Folate [Mass/volume] in Seru m or PlasmaOrdered By: Vivek Cheng on 02-05-2025 Folate [Mass/Vol] 3.73 ng/mL Low 4.60-34.80 [facility] Folates,Serum (Folic Acid)on 02-05-2025 FOLATES,SERUM 3.73 ng/mL Low 4.60-34.80 [facility] Comment on above: Order Comment: N Performed By: #### L 3410.9994, L100.0100, L3410.9992, L500.4050, L3410.9996, L501.9520, L509.8002, L503.0106, L506.1001, L506.0200 #### [facility] [address] [place], [address] Glomerular filtration rate ( GFR) estimation/1.73 sq m using serum, plasma, or whole bOrdered By: Vivek Cheng on 02-05-2025 GFR/1.73 sq M.predicted among non-blacks MDRD (S/P/Bld) [Vol rate/Area] 94 mL/min/{1.73_m2} >60 [facility] Comment on above: mL/min/1.73m2 CKD-EP I Creatinine Equation (2020) Hematocrit Auto (Bld) [Volum e fraction]Ordered By: Vivek Prosper on 02-05-2025 Hematocrit (Bld) [Volume fraction] 38.0 % 37-47 [facility] Hemoglobin measurementOrdere d By: Vivek Cheng 02-05-2025 Hemoglobin (Bld) [Mass/Vol] 12.4 g/dL 12.0-15.0 [facility] Immature granulocytes/100 WB C Auto (Bld)Ordered By: Vivek Cheng 02-05-2025 Immature granulocytes/100 WBC (Bld) 0.000 % 0.0-0.9 [facility] [facility] Comment on above: IG% - Immature Granu locytes (promyelocytes, myelocytes and metamyelocytes) > 1% indicates that a LEFT SHIFT is Present. Laboratory - Chemistry and C hemistry - challengeOrdered By: Vivek Cheng 02-05-2025 AST [Catalytic activity/Vol] 18 U/L <32 [facility] MCV (mean corpuscular volume ) determinationOrdered By: Vivek Prosper 02-05-2025 MCV (RBC) [Entitic vol] 91.8 fL 81-99 [facility] Mean corpuscular hemoglobin (MCH) determinationOrdered By: Vivek Prosper 02-05-2025 MCH (RBC) [Entitic mass] 30.0 pg 27.0-32.0 [facility] Mean corpuscular hemoglobin concentration (MCHC) determinationOrdered By: Vivek Prosper 02-05-2025 MCHC (RBC) [Mass/Vol] 32.6 g/dL 32-36 [facility] Mean platelet volume determi nationOrdered By: Vivek Cheng on 02-05-2025 Platelet mean volume (Bld) [Entitic vol] 10.7 fL 6.2-12.0 [facility] Monocyte percentageOrdered B y: Vivek Cheng on 02-05-2025 Monocytes/100 WBC (Bld) 9.8 % 0-10 [facility] Neutrophil percentageOrdered By: Vivek Cheng on 02-05-2025 Neutrophils/100 WBC (Bld) 66.5 % 47-70 [facility] Nucleated red blood cell per centageOrdered By: Vivek Cheng on 02-05-2025 Nucleated RBC/100 WBC (Bld) [Ratio] 0 % 0-5 [facility] Platelet countOrdered By: Steven Cheng on 02-05-2025 Platelets (Bld) [#/Vol] 245 10*3/uL 150-450 [facility] Potassium measurement (mass/ volume)Ordered By: Vivek Chegn on 02-05-2025 Potassium (Unsp spec) [Mass/Vol] 4.0 mmol/L 3.3-5.1 [facility] RBC Auto (Bld) [#/Vol]Ordere d By: Vivek Cheng on 02-05-2025 RBC (Bld) [#/Vol] 4.14 10*6/uL Low 4.2-5.4 [facility] Serum creatinine measurement (mass/volume)Ordered By: Vivek Cheng on 02-05-2025 Creatinine [Mass/Vol] 0.61 mg/dL Low 0.70-1.20 [facility] Serum globulin measurementOr dered By: Vivek Cheng on 02-05-2025 Globulin (S) [Mass/Vol] 3.6 g/dL 2.2-4.2 [facility] Serum glucose measurement (m ass/volume)Ordered By: Vivek Cheng on 02-05-2025 Glucose [Mass/Vol] 89 mg/dL 70-99 [facility] Serum or plasma alanine guajardo otransferase (ALT) measurementOrdered By: Vivek Cheng 02-05-2025 ALT [Catalytic activity/Vol] 11 U/L <35 [facility] Serum or plasma albumin brody urement (mass/volume)Ordered By: Vivek Cheng on 02-05-2025 Albumin [Mass/Vol] 3.9 g/dL 3.4-4.8 [facility] Serum or plasma albumin/glob ulin mass ratioOrdered By: Vivek Cheng on 02-05-2025 Albumin/Globulin [Mass ratio] 1.1 {ratio} 0.9-2.4 [facility] Serum or plasma alkaline janae sphatase measurementOrdered By: Vivek Cheng on 02-05-2025 ALP [Catalytic activity/Vol] 76 U/L 35-104 [facility] Serum or plasma calcium brody urement (mass/volume)Ordered By: Vivek Cheng on 02-05-2025 Calcium [Mass/Vol] 9.2 mg/dL 7.6-11.0 [facility] Serum or plasma urea nitroge n measurement (mass/volume)Ordered By: Vivek Cheng on 02-05-2025 Urea nitrogen [Mass/Vol] 12 mg/dL 4-19 [facility] Sodium levelOrdered By: iVvek Cheng on 02-05-2025 Sodium [Moles/Vol] 141 mmol/L 133-145 [facility] Syphilis Antibodieson 2024 Syphilis Abs Non-Reactive Normal Nonreactive [facility] Comment on above: Performed By: #### L 3410.9994, L100.0100, L3410.9992, L500.4050, L3410.9996, L501.9520, L509.8002, L503.0106, L506.1001, L506.0200 #### [facility] [address] [place], [place] [address]all [facility] [place], [address] TSH DL <= 0.005 mIU/L QnOrde red By: Vivek Cheng on 02-05-2025 TSH Qn 1.900 uIU/mL 0.300-4.200 [facility] Thyroid Stim Hormone (TSH)on 02-05-2025 TSH 1.900 uIU/mL Normal 0.300-4.200 [facility] Comment on above: Performed By: #### L 3410.9994, L100.0100, L3410.9992, L500.4050, L3410.9996, L501.9520, L509.8002, L503.0106, L506.1001, L506.0200 #### [facility] [address] [place], [address] Total proteinOrdered By: Vivek Cheng on 02-05-2025 Protein [Mass/Vol] 7.5 g/dL 5.9-8.4 [facility] Vitamin B12on 02-05-2025 Cobalamin (Vitamin B12) [Mass/Vol] 1582 pg/mL High 180-914 [facility] Comment on above: Performed By: #### L 3410.9994, L100.0100, L3410.9992, L500.4050, L3410.9996, L501.9520, L509.8002, L503.0106, L506.1001, L506.0200 #### [facility] [address] [facility] [place], [place], [id number] Vitamin B12 ser/plasOrdered By: Vivek Cheng on 02-05-2025 Cobalamin (Vitamin B12) [Mass/Vol] 1582 pg/mL High 180-914 [facility] Vitamin D,25 Hydroxyon 02-05 Vitamin D 25-OH 58.2 ng/mL Normal 30-100 [facility] Comment on above: Result Comment: Ciera min D Status Deficiency: <20 ng/mL (50nmol/L) Insufficiency: 20-30 ng/mL (50-75 nmol/L) Sufficiency: 30-100 ng/mL (75-250 nmol/L) Toxicity: >100 ng/mL (>250 nmol/L) Performed By: #### L 506.1000, L501.9520, L100.0100, L500.4050 #### [facility] [address] [facility] [place], [address] White blood cell (WBC) count Ordered By: Vivek Cheng on 02-05-2025 WBC (Bld) [#/Vol] 5.6 10*3/uL 4.4-11.0 [facility] CBC W/Diff, Automatedon 01-0 2-2024 Absolute Lymph 1.33 X10 3/uL Normal 0.83-4.51 [facility] Comment on above: Performed By: #### L 506.1000, L501.9520, L100.0100, L500.4050 #### [facility] [address] [place], [address] Absolute Neut 4.4 X10 3/uL Normal 2.0-7.7 [facility] Comment on above: Performed By: #### L 506.1000, L501.9520, L100.0100, L500.4050 #### [facility] [address] [place], [address] Basophils/100 WBC (Bld) 0.6 % Normal 0-1 [facility] Comment on above: Performed By: #### L 506.1000, L501.9520, L100.0100, L500.4050 #### [facility] [address] [place], [address] Eosinophils/100 WBC (Bld) 1.4 % Normal 0-5 [facility] Comment on above: Performed By: #### L 506.1000, L501.9520, L100.0100, L500.4050 #### [facility] [address] [place], [address] Erythrocyte distribution width (RBC) [Ratio] 12.7 % Normal 11.6-14.6 [facility] Comment on above: Performed By: #### L 506.1000, L501.9520, L100.0100, L500.4050 #### [facility] [address] [place], [address] Hematocrit (Bld) [Volume fraction] 42.0 % Normal 37-47 [facility] Comment on above: Performed By: #### L 506.1000, L501.9520, L100.0100, L500.4050 #### [facility] [address] [place], [address] Hemoglobin (Bld) [Mass/Vol] 13.5 g/dL Normal 12.0-15.0 [facility] Comment on above: Performed By: #### L 506.1000, L501.9520, L100.0100, L500.4050 #### [facility] [address] [place], [address] IG% 0.600 Normal 0.0-0.9 [facility] Comment on above: Result Comment: IG% - Immature Granulocytes (promyelocytes, myelocytes and metamyelocytes) > 1% indicates that a LEFT SHIFT is Present. Performed By: #### L 506.1000, L501.9520, L100.0100, L500.4050 #### [facility] [address] [place], [address] Lymphocytes/100 WBC (Bld) 20.2 % Normal 19-41 [facility] Comment on above: Performed By: #### L 506.1000, L501.9520, L100.0100, L500.4050 #### [facility] [address] [place], [address] MCH (RBC) [Entitic mass] 30.7 pg Normal 27.0-32.0 [facility] Comment on above: Performed By: #### L 506.1000, L501.9520, L100.0100, L500.4050 #### [facility] [address] [place], [address] MCHC (RBC) [Mass/Vol] 32.1 g/dL Normal 32-36 [facility] Comment on above: Performed By: #### L 506.1000, L501.9520, L100.0100, L500.4050 #### [facility] [address] [place], [address] MCV (RBC) [Entitic vol] 95.5 fL Normal 81-99 [facility] Comment on above: Performed By: #### L 506.1000, L501.9520, L100.0100, L500.4050 #### [facility] [address] [place], [address] Monocytes/100 WBC (Bld) 10.5 % High 0-10 [facility] Comment on above: Performed By: #### L 506.1000, L501.9520, L100.0100, L500.4050 #### [facility] [address] [place], [address] Neutrophils/100 WBC (Bld) 66.7 % Normal 47-70 [facility] Comment on above: Performed By: #### L 506.1000, L501.9520, L100.0100, L500.4050 #### [facility] [address] [place], [address] Nucleated RBC (Bld) [#/Vol] 0 10*3/uL Normal 0-5 [facility] Comment on above: Performed By: #### L 506.1000, L501.9520, L100.0100, L500.4050 #### [facility] [address] [place], [address] Platelet mean volume (Bld) [Entitic vol] 10.2 fL Normal 6.2-12.0 [facility] Comment on above: Performed By: #### L 506.1000, L501.9520, L100.0100, L500.4050 #### [facility] [address] [place], [address] Platelets (Bld) [#/Vol] 285 10*3/uL Normal 150-450 [facility] Comment on above: Performed By: #### L 506.1000, L501.9520, L100.0100, L500.4050 #### [facility] [address] [place], [address] RBC (Bld) [#/Vol] 4.40 10*6/uL Normal 4.2-5.4 [facility] Comment on above: Performed By: #### L 506.1000, L501.9520, L100.0100, L500.4050 #### [facility] [address] [place], [address] RDW SD 44.2 fl High 35.1-43.9 [facility] Comment on above: Performed By: #### L 506.1000, L501.9520, L100.0100, L500.4050 #### [facility] [address] [place], [address] WBC (Bld) [#/Vol] 6.6 10*3/uL Normal 4.4-11.0 [facility] Comment on above: Performed By: #### L 506.1000, L501.9520, L100.0100, L500.4050 #### [facility] [address] [place], [address] Comprehensive Metabolic [facility] 08-21-2024 Albumin [Mass/Vol] 3.0 g/dL Low 3.2-5.0 [facility] Comment on above: Performed By: #### L 506.1000, L501.9520, L100.0100, L500.4050 #### [facility] [address] [place], [address] Albumin/Globulin [Mass ratio] 0.7 {ratio} Low 0.9-2.4 [facility] Comment on above: Performed By: #### L 506.1000, L501.9520, L100.0100, L500.4050 #### [facility] [address] [place], [address] ALK P 124 U/L High 45-117 [facility] Comment on above: Performed By: #### L 506.1000, L501.9520, L100.0100, L500.4050 #### [facility] [address] [place], [address] ALT [Catalytic activity/Vol] 21 U/L Normal 13-56 [facility] Comment on above: Performed By: #### L 506.1000, L501.9520, L100.0100, L500.4050 #### [facility] [address] [place], [address] AST [Catalytic activity/Vol] 19 U/L Normal 15-37 [facility] Comment on above: Performed By: #### L 506.1000, L501.9520, L100.0100, L500.4050 #### [facility] [address] [place], [address] Bilirubin [Mass/Vol] 0.30 mg/dL Normal 0.20-1.00 [facility] Comment on above: Result Comment: For patients on eltrombopag therapy, use of Dimension [place] TBIL is not recommended. Performed By: #### L 506.1000, L501.9520, L100.0100, L500.4050 #### [facility] [address] [place], [address] BUN/CRE 12.8 RATIO Normal 10-20 [facility] Comment on above: Performed By: #### L 506.1000, L501.9520, L100.0100, L500.4050 #### [facility] [address] [place], [address] CA,Total 8.9 mg/dL Normal 8.5-10.1 [facility] Comment on above: Performed By: #### L 506.1000, L501.9520, L100.0100, L500.4050 #### [facility] [address] [place], [address] Chloride [Moles/Vol] 106 mmol/L Normal 98-107 [facility] Comment on above: Performed By: #### L 506.1000, L501.9520, L100.0100, L500.4050 #### [facility] [address] [place], [address] CO2 [Moles/Vol] 31.0 mmol/L Normal 21.0-32.0 [facility] Comment on above: Performed By: #### L 506.1000, L501.9520, L100.0100, L500.4050 #### [facility] [address] [place], [address] Creatinine [Mass/Vol] 0.78 mg/dL Normal 0.55-1.02 [facility] Comment on above: Result Comment: The validity of the calculated GFR GFRAA in patients over 70 years has not been determined. Clinical correlation is essential. Performed By: #### L 506.1000, L501.9520, L100.0100, L500.4050 #### [facility] [address] [place], [address] EST GFR - AA 93 mL/min Normal >60 [facility] Comment on above: Result Comment: Afri can Salvadorean GFR Calc Performed By: #### L 506.1000, L501.9520, L100.0100, L500.4050 #### [facility] [address] [place], [address] GAP 4 Low 5-15 [facility] Comment on above: Performed By: #### L 506.1000, L501.9520, L100.0100, L500.4050 #### [facility] [address] [place], [address] GFR/1.73 sq M.predicted among non-blacks MDRD (S/P/Bld) [Vol rate/Area] 77 mL/min/{1.73_m2} Normal >60 [facility] Comment on above: Result Comment: Non- GFR Calc Performed By: #### L 506.1000, L501.9520, L100.0100, L500.4050 #### [facility] [address] [place], [address] Globulin (S) [Mass/Vol] 4.6 g/dL High 2.2-4.2 [facility] Comment on above: Performed By: #### L 506.1000, L501.9520, L100.0100, L500.4050 #### [facility] [address] [place], [address] Glucose [Mass/Vol] 95 mg/dL Normal 74-106 [facility] Comment on above: Performed By: #### L 506.1000, L501.9520, L100.0100, L500.4050 #### [facility] [address] [place], [address] Potassium [Moles/Vol] 3.9 mmol/L Normal 3.5-5.1 [facility] Comment on above: Performed By: #### L 506.1000, L501.9520, L100.0100, L500.4050 #### [facility] [address] [place], [address] Sodium [Moles/Vol] 141 mmol/L Normal 136-145 [facility] Comment on above: Performed By: #### L 506.1000, L501.9520, L100.0100, L500.4050 #### [facility] [address] [place], [address] T PROT 7.6 g/dL Normal 6.4-8.2 [facility] Comment on above: Performed By: #### L 506.1000, L501.9520, L100.0100, L500.4050 #### [facility] [address] [place], [address] Urea nitrogen [Mass/Vol] 10 mg/dL Normal 7-18 [facility] Comment on above: Performed By: #### L 506.1000, L501.9520, L100.0100, L500.4050 #### [facility] [address] [place], [address] Thyroid Stim Hormone (TSH)on 08-21-2024 TSH 1.340 uIU/mL Normal 0.358-3.740 [facility] Comment on above: Performed By: #### L 506.1000, L501.9520, L100.0100, L500.4050 #### [facility] [address] [place], [address] Vitamin D,25 Hydroxyon 08-21 Vitamin D 25-OH 59.2 ng/mL Normal [facility] Comment on above: Result Comment: Ciera min D 25(OH) Status Range Deficiency <20 ng/mL (50nmol/L) Insufficiency 20 - 30 ng/mL (50 - 75 nmol/L) Sufficiency 30 - 100 ng/mL (75 - 250 nmol/L) Toxicity >100 ng/mL (>250 nmol/L) Performed By: #### L 506.1000, L501.9520, L100.0100, L500.4050 #### [facility] [address] [place], [address] Encounters Encounter Date Encounter Type Care Provider Facility Start: 07-09-2025 ambulatory Vivek Chi Prosper Facility:[facility] Start: 06-15-2025 End: 06-15-2025 ambulatory Vivek Chi Prosper Facility:[facility] Start: 03-14-2025 End: 03-14-[address] Vivek Cheng MD Work Phone: -[facility] Start: 03-14-2025 End: 03-14-[address] Vivek Cheng MD -[facility] Work Phone: Start: 03-14-2025 End: 03-14-2025 ambulatory Vivek Aaron Suttonok Facility:[facility] Start: 02-06-2025 End: 02-06-[address] Vivek Cheng MD Work Phone: [facility] Work Phone: Start: 02-06-2025 End: 02-06-[address] Vivek Cheng MD -[facility] Work Phone: Start: 02-05-2025 End: 02-06-[address] Vivek Cheng MD Work Phone: [facility] Work Phone: Start: 02-05-2025 End: 02-05-[address] Vivek Cheng MD -Laboratory Work Phone: Start: 02-05-2025 End: 02-05-2025 ambulatory Vivek Aaron Cheng Facility:[facility] Start: 08-21-2024 End: 08-21-2024 ambulatory Vivek Cheng Facility:[facility] Start: 11-16-[address] KHADIJAH ALTAMIRANO [facility] Procedures Date Procedure Procedure Detail Performing Clinician Start: 03-14-2025 MRI of brain without contrast Dr. Vivek juarez MD Work Phone: Start: 02-06-[address] Vivek Cheng MD Work Phone: Start: 02-05-[address] Vivek Cheng MD Work Phone: Comment on above: Test Ordered: [id number] Beta Amyloid 42/40 RatioTest(s) 641518-Vveg-lrunakh 42/40 Ratio; 790005-Pvnz-rbhyvvo 42; 214174-Hyhs-dbxrwbl 40was developed and its performance characteristicsdetermined by [employer]. It has not been cleared or approvedby [...] deficiency biomarkers, neuroimaging,and physical, neurological, and neuropsychologicalexaminations.Methodology: [employer] Chemiluminescence Enzyme Immunoassay(CLEIA). Values obtained with differentmethods cannot be used interchangeably.Performed at: [facility] [employer] [id number] Director: Binu Sandoval MD, Phone: [phone] at: [address] [id number] Director: Luis Robertson PhD, Phone: [phone] Test Ordered: [id number] p-ukk506Wqin(s) 179587-g-cxv570bgy developed and its performance characteristicsdetermined by [employer]. It has not been cleared or approvedby the Food and Drug Administration.p-bwh654 0.29 [H ] pg/mL L9 Reference Range: 0.00-0.18 Clinical cutoff value was established using samples from a patientcohort characterized with amyloid PET data. A p-yhw755 value of >0.18is a reported surrogate marker for beta amyloid pathology, and can beused to facilitate biological identification of Alzheimer's disease(1). p-sgo759 has also been used in clinical trials to monitorpatients on anti-amyloid therapy (2,3). Test performed by [employer] chemiluminescent enzymeimmunoassay (CLEIA). Values obtained with different methods cannot beused interchangeably. The validated limit of quantification is 0.06pg/mL. Assay detection limit is 0.03 pg/mL.Footnotes Comment L9 Reference Range: .1. Rahul Arora et al. Diagnostic Accuracy of aPlasma Phosphorylated Tau 217 Immunoassay for AlzheimerDisease Pathology. SHANNON neurology (2023).2. Rahul Arora, et al. Differential roles ofA42/40, p-kqc272 and p-dxi452 for Alzheimer's trialselection and disease monitoring. Nature medicine 28.12(2021): 8617-3680. 3. Andrew MJ, Karla M, Anabell SC, etal. Association of Donanemab Treatment With ExploratoryPlasma Biomarkers in Early Symptomatic Alzheimer Disease: ASecondary Analysis of the TRAILBLAZER-ALZ RandomizedClinical Trial. SHANNON Neurol. 2021;79(12):3672-9069.Performed at: [facility] [employer] [place] [id number] Director: Ezequiel Gomes MD, Phone: [phone] at: [facility] [id number] Director: Luis Robertson PhD, Phone: [phone] Test Ordered: [id number] APOE Alzheimer's RiskMethodology: Comment UY Reference Range: .Patient DNA is assayed for the APOE genotype by PCRamplification of a specific region in exon 4 of the APOEgene followed by digestion with restriction enzyme [employer] Iand separation of fragments by polyacrylamide gelelectrophoresis. [...] can be familial (15-20%) or sporadic. The PQRA5mcawuip increases the risk for late onset AD and maycontribute to the pathology of the disease. This risk isincreased by approximately 2 to 3-fold for individuals withone copy of the APOE4 variant and by approximately [id number] for individuals with two copies of this [...] with late onset AD, the presence of AGLH6qrg lead to earlier development of symptoms.However, APOE4 [...] was developed and its performance characteristicsdetermined by [employer]. It has not been cleared or approvedby the Food and Drug Administration. The FDA has determinedthat such clearance or approval is not necessary.REFERENCESAltmlewis A et al. Sex modifies the APOE-related risk ofdeveloping Alzheimer disease. Annal Rchmmk5566;75(4):563-573Bird TD. Alzheimer Disease Overview. [employer](internet). Tino RA et al., editors. [facility], [place], [place]. Last revised 2014.Bob MOORE et al. Genetic counseling and testing forAlzheimer disease: Joint practice guidelines of theUnited Memorial Medical Centeran College of Medical Genetics and the [facility] of Genetic Counselors. Radha in Yag7569;13(1)59607.Magda AGUIRRE. Apolipoprotein E: Implications for ADneurobiology, epidemiology and risk assessment.Neurobiology of Aging 2011;32:778-790Performed at: [employer] [address] [id number] Director: Victor M Newell MD, Phone: [phone] at: [address] [id number] Director: Luis Robertson PhD, Phone: [phone] Start: 02-05-2025 Serologic test for syphilis Dr. Vivek Cheng MD Work Phone: Start: 02-05-2025 Vitamin D, 25-hydroxy measurement Dr. Steven Cheng MD Work Phone: Comment on above: Vitamin D StatusDeficiency: <20 ng/mL (5 0nmol/L)Insufficiency: 20-30 ng/mL (50-75 nmol/L)Sufficiency: 30-100 ng/mL (75-250 nmol/L)Toxicity: >100 ng/mL (>250 nmol/L) Plan of Treatment Date Care Activity Detail Author Start: 02-05-2025 Procedure [facility] Payers Date Payer Category Payer Private Health Insurance [id number] 2024 Self-pay [id number] 2024 Self-pay 2015 Medicare [id number] Unknown [id number] 2.16.8 [id number] Unknown [id number] 2.16.8 [id number] Unknown [id number] 2.16.8 [id number] Unknown [id number] 2.16.8 [id number] Unknown [id number] 2.16.8 [id number] Unknown [id number] 2.16.8 [id number] Social History Date Type Detail Facility Start: 02-13-2024 Tobacco smoking stat [facility] Never smoked tobacco (finding) [facility] Start: 1950 Sex Assigned At Female [facility] Evaluation note Note Date & Type Note Facility Evaluation note No assessment information availa ble [facility] Work Phone: Reason for referral (narrative) Note Date & Type Note Facility Reason for referral (narrative) No reason for referral information available [facility] Work Phone: Summary Purpose Family History No [...] section and content) DATE CREATED AUTHOR 11/18/2021 [facility] DATE CREATED AUTHOR AUTHOR'S ALEXANDR ATION 06/26/2025 [facility] Care Teams (unrecognized sec tion and content) [...] BE BASED ON THE PRIMARY CLINICAL RECORDS. [facility] [employer] provides no warranty or guarantee of the accuracy or completeness of information in this document.
--- NOTE | 2025-07-31 13:07 | MRI_ITS ---
EXAM: PELVIS W/WO CONTRAST 07/31/2025 CLINICAL HISTORY: STAGING RECTAL CANCER. TECHNIQUE: Procedure Code: [id number] Modality: MR Procedure: PELVIS W/WO CONTRAST Multiplanar and multisequence images were obtained intravenous gadolinium contrast. CONTRAST: Clariscan VOLUME: 18 mL COMPARISON: CT scan on 07/27/2025. FINDINGS: Heterogeneously enhancing mass lesion is noted arising from the left lateral wall of the rectum measuring 3.7 x 1.2 cm in its largest craniocaudal and transverse dimensions respectively. Secondary complete full-thickness invasion of the muscularis propria without reaching the perirectal fat. The most caudal aspect of the mass is identified 7.5 cm proximal to the anal verge. 4 mildly prominent left mesorectal lymph nodes are noted with the largest measuring 6 mm. No other enlarged lymph node is identified. No other mass lesion is seen. Diffuse thickening of the endometrium measuring 8.8 mm without associated mass lesion. Retroverted uterus. No uterine mass is identified. Unremarkable cervix. Unremarkable vagina. No ovarian or adnexal mass lesion is seen. No ascitic fluid is noted. Unremarkable bladder. Unremarkable visualized major neurovascular bundles. Unremarkable visualized bone marrow without aggressive bone lesion. MRI/Pelvis W/WO Contrast IMPRESSION: Heterogeneously enhancing mass lesion is noted arising from the left lateral wa ll of the rectum measuring 3.7 x 1.2 cm in its largest craniocaudal and transverse dimensions respectively, probably primary n eoplasm. Secondary complete full-thickness invasion of the corresponding muscularis propria of the left lateral rectal wal l without reaching the perirectal fat. The most caudal aspect of the mass is identified 7.5 cm proximal to the anal ve rge. Four mildly prominent left mesorectal lymph nodes are noted with the largest me asuring 6 mm. Reading Location: [facility]
== END | disposition home or self-care (01) ==
LOC: NM 08:13
PROVIDERS: PCP Family Medicine Geriatric Medicine; Referring Provider Internal Medicine Hematology & Oncology; Visit Provider Internal Medicine Hematology & Oncology
DX: C20 Malignant neoplasm of rectum (principal)
CPT/HCPCS: 72197; 78306; A9503; A9575

== ENCOUNTER → 2025-08-07 | Outpatient (CLI) | payer MEDICARE, OTHER, SELFPAY ==
[2025-08-07 12:07] LABS: Hematocrit 38.2 % (37-47); Hemoglobin 12.0 g/dL (12.0-15.0); Immature Granulocytes Count 0.010 X10^3/uL (0.0-0.0); Mean Corp Hgb Conc 31.4 g/dL (32-36); Mean Corpuscular Volume 89.9 fL (81-99); Mean Platelet Vol. 10.8 fl (6.2-12.0); NRBC Flagged by Analyzer 0 % (0-5); Platelet Count 209 K/mm3 (150-450); RBC Distribution Width CV 13.9 % (11.6-14.6); RBC Distribution Width SD 45.7 fl (35.1-43.9); Red Blood Count 4.25 M/mm3 (4.2-5.4); White Blood Count 4.7 K/mm3 (4.4-11.0)
[2025-08-07 13:11] LABS: AST(SGOT) 17 U/L (<=31); Alanine Aminotransfer ALT/SGPT 10 U/L (<=34); Albumin, Serum 3.7 g/dL (3.4-4.8); Alkaline Phosphatase 94 U/L (35-104); Anion Gap 8 (5-15); BUN 13 mg/dL (4-19); BUN/Creat Ratio 20.5 RATIO (10-20); Calcium,Total 8.9 mg/dL (7.6-11.0); Carbon Dioxide 27.0 mmol/L (21.0-32.0); Chloride 105 mmol/L (98-108); Globulin 3.4 g/dL (2.2-4.2); Glucose 96 mg/dL (70-99); Potassium 3.9 mmol/L (3.3-5.1); Vitamin D,25 Hydroxy 39.2 ng/mL (30-100)
== END | disposition home or self-care (01) ==
LOC: LAB 11:46
PROVIDERS: PCP Family Medicine Geriatric Medicine; Referring Provider Family Medicine Geriatric Medicine; Visit Provider Family Medicine Geriatric Medicine
DX: E55.9 Vitamin D deficiency, unspecified (principal); I10 Essential (primary) hypertension
CPT/HCPCS: 36415; 80053; 82306; 84443; 85025

== ENCOUNTER 2025-08-18 11:25 | Day surgery (SDC) | payer MEDICARE, OTHER, SELFPAY ==
[2025-08-18] VITALS (8 sets, daily range): BP systolic 99–131; BP diastolic 53–77; PULSE 49–52; RESP 16; TEMP 36.2–36.9; O2SAT 96–100; BMI 32.7
--- NOTE | 2025-08-18 11:28 | HP.PCM_ITS ---
History and Physical Date of Admission: 08/18/25 Intake Vital Signs 08/04/2514:00 08/05/2513:23 Height 5 ft 6 in 5 ft 6 in Weight: 198 lb 7 oz 198 lb BMI 32.0 31.9 BP 99/75 118/69 Blood Pressure Location Rt brachial Rt radial Position Sitting Sitting Respiration 18 17 Pulse 53 L 71 Pulse Source Monitor Monitor Temp 97.3 F L 97.6 F L Temp Source Temporal Pulse Oximetry (%) 94 98 Oxygen Delivery Method room air room air Intake Visit Reasons: PORT CONSULT Chief Complaint: port consult Is patient in pain?: No Allergies No Known Allergies Allergy (Verified 08/05/25 13:24) Medications ?Medication ?Instructions ?Recorded ?Confirmed ?Type aspirin 81 mg tablet,delayed 81 mg PO DAILY 02/13/24 08/05/25 History release (Adult Low Dose Aspirin) donepezil 5 mg tablet (Aricept) 5 mg PO QDAY 06/15/25 08/05/25 History memantine 10 mg tablet 10 mg PO BID 07/07/25 08/05/25 History Have you fallen in the past year?: No PFSH Medical History Rectum cancer Mild cognitive impairment Non-smoker History of fracture of clavicle History of wrist fracture Surgical History History of right knee joint replacement Hx of gastric bypass Family History Mother Arthritis Diabetes Hypertension Father Colon cancer Heart disease Sister Arthritis Social History Smoking Status: Never smoker alcohol intake: current alcohol intake frequency: holidays/special occasions only Alcohol type: wine details: social substance use type: does not use additional social history: pt denies vaping, denies marijuana use, denies edibles, takes aspirin and ibuprofen daily. HPI HPI HPI: Patient is a 74-year-old female here for port placement for rectal cancer. ROS General General: Yes weight change and fatigue; No appetite, colon cancer, breast cancer or weakness HEENT HEENT: No difficulty swallowing, eye injury, eye surgery, swollen glands or hoarseness Endo Endocrine: No thyroid disease, diabetes mellitus, thyroid cancer, Hair loss, heat intolerance or cold intolerance Skin Skin: No rash or changing moles Musc Musculoskeletal: No back problems, arthritis, rheumatoid arthritis, gout or joint pain Cardio Cardiovascular: No murmur, pacemaker, heart disease, atrial fibrillation, high blood pressure, heart attack, heart stent, palpitations, shortness of breath with exertion or chest pain Psych Psychiatric: No depression, anxiety or hearing voices Resp Respiratory: No shortness of breath, No sleep apnea, No cough, No COPD, No asthma, No emphysema and No wheezing Gastro Gastrointestinal: No abdominal pain, No nausea or vomiting, Yes diarrhea, Yes constipation, No blood in stool, No acid reflux, No hemorrhoids, No ulcers, No gallbladder problem and No black,tarry stools [place] Hematologic: No blood thinners, No blood disorders, Yes bleeding, No anemia and No blood clots Neuro Neurologic: No system reviewed and no additional complaints, except as documented, No as per HPI, No abnormal gait, No abnormal hearing, No abnormal movements, No abnormal speech, No behavioral changes, No burning sensations, No confusion, No convulsions, No disequilibrium, No dizziness, No localized weakness, No frequent falls, No headache(s), No lack of coordination, No loss of vision, No memory loss, No numbness, No other visual disturbances, No radicular pain, No restless legs, No sensory deficit, No syncope, No tingling, No tremor(s), No weakness and No other Exam Const General: cooperative Orientation: alert and oriented x3 HENMT Head: normal to inspection Neck Neck: normal visual inspection and full ROM Chest Chest palpation & inspection: normal inspection of the chest Resp Effort & Inspection: normal respiratory effort Auscultation: clear to auscultation bilaterally Cardio Rate: regular rate Rhythm: regular rhythm GI Inspection: non-distended Palpation: soft and nontender Skin General: no rashes or lesions noted Neuro General: patient alert and patient oriented x3 Extrem General: full ROM Psych Appearance: grossly normal Mental Status: mental status grossly normal Assessment and Plan Assessment and Plan (1) Encounter for insertion of venous access port: Status: Acute Plan: I discussed right chest port placement with the patient in detail. I discussed the procedure as well as the risks including but not limited to bleeding, infection, pneumothorax, line infection, DVT. Patient understands the risks and is willing to proceed. I have her on for August 18. She will hold her aspirin for 5 days prior to the procedure. Reuben Strickland MD Pager: [facility] [address] [place] [address], [address] [place] [address] Office: I have examined the patient and the H&P has been reviewed. There are no clinical changes since date of exam.
[2025-08-18] MEDS: Lactated Ringers 1,000 ML 15 ML IV (12:03)
--- NOTE | 2025-08-18 12:03 | PCM.PRE.AN2 ---
ASA Classification* ASA Classification ASA Classification: 2 Assessment & Plan Anesthesia* Anesthesia Assessment Anesthesia Assessment: Discussed sedation and/or anesthesia options, risks, benefits, and alternatives with patient/parents/legal guardian/POA. Questions invited. The patient/parents/legal guardian/POA seems to understand and agrees to proceed with anesthesia plan. Reviewed the physical assessment, medical history, allergy history and patient home medications list prior to surgery/procedure/anesthetic and documented any changes. Performed airway and anesthesia risk assessments. Anesthesia Type Anesthesia Type: MAC History Source History Obtained from:: Patient and Chart Anesthesia Focused Assessment* Temperature: 98.4 F Pulse Rate: 51 Blood Pressure: 131/77 Respiratory Rate: 16 Pulse Ox: 100 Oxygen Delivery Method: Room Air Airway Assessment Mouth opens: >3 cm Mallampati Score: III Teeth Condition: Partial (Top partials are out.) Neck Range of motion (ROM): Limited ROM (Slight Decrease) Labs Anesthesia Preop lab: CBC WBC, (4.4-11.0) 4.7 K/mm3 08/07/25, 11:48 RBC, (4.2-5.4) 4.25 M/mm3 08/07/25, 11:48 Hgb, (12.0-15.0) 12.0 g/dL 08/07/25, 11:48 Hct, (37-47) 38.2 % 08/07/25, 11:48 Plt Count, (150-450) 209 K/mm3 08/07/25, 11:48 CHEMISTRY Potassium, (3.3-5.1) 3.9 mmol/L 08/07/25, 11:48 Sodium, (133-145) 140 mmol/L 08/07/25, 11:48 BUN, (4-19) 13 mg/dL 08/07/25, 11:48 Creatinine, (0.70-1.20) 0.63 mg/dL L 08/07/25, 11:48 Glucose, (70-99) 96 mg/dL 08/07/25, 11:48 TSH, (0.300-4.200) 1.980 uIU/mL 08/07/25, 11:48 COAG PT, (11.7-14.9) 13.0 SECONDS 11/22/17, 14:33 Pre-Assessment Diagnosis/Proposed Procedure Planned Operative Procedure(s): PORT INSERTION Anesthesia History Anesthesia History - television presenter: Anesthesia History - television presenter Hx Hospitalization No 08/12/25 10:22 Any Problems With Anesthesia Yes: VERY SLEEPY AFTER 08/12/25 10:22 ANESTHESIA Cholinesterase deficiency No 08/12/25 10:22 You/Your Family Experience No 08/12/25 10:22 fever (hyperthermia) with Relationship Recent Exposure to Contagious No 08/18/25 12:00 Disease Does patient have nerve No 08/12/25 10:22 stimulator Patient instructed to have device shut off --Does patient have Pacemaker No 08/18/25 12:00 or ICD? When Was Last Pacemaker Check QUESTION #4 FULL TEXT: You/Your Family Experience fever (hyperthermia) with Anesthesia Last Oral Intake Last Oral intake: Last Oral Intake NPO since 07:30 08/18/25 12:00 Meds taken in AM with sips of No 08/18/25 12:00 water? Meds patient instructed to take am of surgery Any additional information?: Yes NPO since: 07:30 (Patient had coffee with honey at 7:30 AM.) Meds taken in AM with sips of water?: No PONV PONV - television presenter: PONV - television presenter Female Yes 08/12/25 10:22 HX of Motion Sickness No 08/12/25 10:22 HX of N/V After Surgery No 08/12/25 10:22 Non-Smoker Yes 08/12/25 10:22 Duration of Surgery greater No 08/12/25 10:22 than 60 minutes Number of Risk Factors 2 08/12/25 10:22 PONV Score Moderate Risk 08/12/25 10:22 Height & Weight Height & Weight: Anesthesia: Height & Weight Height 5 ft 6 in 08/18/25 12:00 Weight: 92 kg 08/18/25 12:00 Body Mass Index (BMI) 32.7 08/18/25 12:00 Respiratory Assessment Respiratory Assessment - television presenter: Respiratory Tract Infection Hx - television presenter Hx Respiratory Tract Infection No 08/12/25 10:22 STOP Sleep Apnea STOP Sleep Apnea - television presenter: STOP Sleep Apnea - television presenter Hx Hypertension No 08/12/25 10:22 Hx Sleep Apnea No 08/12/25 10:22 CPAP BIPAP Do you snore loudly (louder No 08/12/25 10:22 than talking or can be heard Do you often feel tired/ No 08/12/25 10:22 fatigued/ sleepy during daytime? Has anyone observed you stop No 08/12/25 10:22 breathing during sleep? STOP Results Negative 08/12/25 10:22 QUESTION #5 FULL TEXT : Do you snore loudly (louder than talking or can be heard through closed doors)? Tobacco Use History Tobacco Use History - television presenter: Tobacco Use History - television presenter Tobacco Use Smoking Status Never smoker 08/12/25 10:22 Hx Tobacco Use No 08/12/25 10:22 Years Smoking Packs Smoked per Day Smoking Cessation Date was within the last 15 years Hx Smoking Cessation Date Hx Smoking Cessation Counseling Hematologic Medial History Hematologic Hx - television presenter: Hematologic Medical Hx - rn clinical documentation Hx of Blood Transfusion No 08/12/25 10:22 Hx of Transfusion in last 3 No 08/12/25 10:22 Months Date of Last Transfusion (if within last 3 months) Ever experience any problems No 08/12/25 10:22 with transfusion(s)? Specify any problems Hx of Preganancy in last 3 N/A 08/12/25 10:22 Months Nurse Filling Out Transfusion NBUCHER 08/12/25 10:22 & Questions: Date: 08/12/25 08/12/25 10:22 Time: 10:23 08/12/25 10:22 Patient unable to answer at this time (ie. confused, unrespo /Reproduction History /Reproductive History - television presenter: /Reproductive Hx- television presenter Hx Now No 08/12/25 10:22 Gestational Age (in weeks): EDC: Hx Hx Para Hx Section SAB No 08/12/25 10:22 Does the father of the baby or his family experience fever w Father of the baby Malignant Hypertension history comment Active Medications Active Medications: Current Medications Generic Name Dose Route Start Last Admin Trade Name Freq PRN Reason Stop Dose Admin Lactated Ringer's 1,000 mls @ 15 mls/hr 08/18/25 11:45 08/18/25 12:03 IV 15 mls/hr .Q48H KENNY Administration PFSH Medical History Wears partial dentures Wears glasses Encounter for education Rectum cancer Mild cognitive impairment Non-smoker History of fracture of clavicle History of wrist fracture Home Medications ?Medication ?Instructions ?Recorded ?Last Taken ?Type aspirin 81 mg tablet,delayed 81 mg PO DAILY 02/13/24 07/06/25 History release (Adult Low Dose Aspirin) donepezil 5 mg tablet (Aricept) 5 mg PO QDAY 06/15/25 Unknown History memantine 10 mg tablet 10 mg PO BID 07/07/25 Unknown History lidocaine-prilocaine 2.5 %-2.5 % 1 applic topical ONCE PRN port 08/05/25 Unknown Rx topical cream access 30 days #30 grams ondansetron 8 mg disintegrating 8 mg PO Q8H PRN nausea and 08/05/25 Unknown Rx tablet vomiting #30 tabs Allergy/AdvReac Type Severity Reaction Status Date / Time No Known Allergies Allergy Verified 08/18/25 11:59 Family History Mother Arthritis Diabetes Hypertension Father Colon cancer Heart disease Sister Arthritis Surgical History History of right knee joint replacement Hx of gastric bypass Social History Smoking Status: Never smoker alcohol intake: current alcohol intake frequency: holidays/special occasions only Alcohol type: wine details: social substance use type: does not use additional social history: pt denies vaping, denies marijuana use, denies edibles, takes aspirin and ibuprofen daily. Review of Systems (Anesthesia) ROS Narrative System reviewed and no additional complaints, except as documented.
[2025-08-18] MEDS: Lactated Ringers 500 ML IV (12:27)
[2025-08-18] MEDS: Cefazolin 1 GM/5 ML Vial 2 GM IV (12:30)
[2025-08-18] MEDS: Midazolam 2 MG/2 ML Syringe IV (12:33)
[2025-08-18] MEDS: fentaNYL 100 MCG/2 ML Ampul 25 MCG IV (12:35)
[2025-08-18] MEDS: Lidocaine 1% /Epi 1:100 (20ml) 20 ML Vial (13:09)
--- NOTE | 2025-08-18 13:12 | OP.PCM_ITS ---
Operative Report (Standard) Operative Information Date of Procedure: 08/18/25 Pre-Operative Diagnosis: Need for vascular access for chemotherapy Post-Operative Diagnosis: Same Surgery/Procedure Performed: Ultrasound and fluoroscopy guided right chest port placement utilizing right IJ quickbooks bookkeeper: No Type of Anesthesia: Local MAC RN Documented Start/Stop Times: Operation Date: 08/18/25 13:00 Case Time Into Pre-Op 08/18/25 11:29 Out of Pre-Op 08/18/25 12:22 Anesthesia Start 08/18/25 12:27 Into Room 08/18/25 12:27 Procedure Start 08/18/25 12:49 Procedure End 08/18/25 13:10 Procedure Start Time: 12:49 Procedure Stop Time: 13:10 Select all DRAINS/GRAFTS/IMPLANTS that apply: Implanted device Implanted device details: 8 [place] PowerPort Estimated Blood Loss: 5 Specimen collected: No Description of surgery: After obtaining informed consent patient was brought back to the operating room MAC anesthesia was induced and the right chest and neck were prepped in normal sterile fashion. Ultrasound was used to evaluate both IJs and the right IJ was selected. Next, using a needle, the right IJ was accessed and a guidewire was passed on into the superior vena cava under fluoroscopy guidance. A small incision was made over the puncture site and the dilator introducer was placed over the guidewire. Next this was capped and the pocket was made for the port. 1% lidocaine with epinephrine was injected in the proposed port site. An incision was made with scalpel. Electrocautery was used to make a pocket under the skin and subcutaneous tissue. Hemostasis was obtained. Next, the catheter was tunneled up to the neck incision site and placed through the introducer. The peel-away introducer was removed and the position of the catheter was confirmed on fluoroscopy. Next, the catheter was trimmed and attached to the port with the locking device. Interrupted 2-0 Vicryl sutures were used to anchor the port to the chest wall and then the port was placed inside the pocket. The pocket was then flushed with saline and the port irrigated with saline. There was good blood return and the port flushed easily. Next, heparin was injected into the port. The skin was closed with subcutaneous interrupted 3-0 Vicryl sutures. A single 3-0 Vicryl sutures placed under the skin at the neck incision site. Steri-Strips were placed as well as op sites. Patient tolerated procedure well, was taken to PACU in stable condition. Chest x-ray will be obtained. Surgical Findings: Some difficulty accessing the superior vena cava. Complications Complications: No Admit VTE Documentation VTE Mechan Device Prophylaxis: SCD's
--- NOTE | 2025-08-18 13:13 | EX.PCM.DISCH ---
Discharge Instructions Procedure Port-A-Cath Diet Discharge Diet: Light diet - advance as tolerated (Pain medication may cause nausea. You should typically eat light foods as you take your pain medication.) Activity Discharge Activity: Return to Normal Activity and May Shower (with your bandage in place in 1-2 days after surgery. DO NOT SHOWER WHEN YOUR PORT IS ACCESSED.) Additional Activity Instructions:: Alternate ibuprofen and Tylenol for pain control Dressing / Incision Call your doctor if your incision/area has: Continuous Slow Oozing, Sudden Increased Bleeding, Increased Pain/ Swelling, Increased Redness and Foul Smelling Discharge Call your doctor if you observe: Fever of 101 or Higher Remove Dressing in: 2 days Cleanse incision/area with: Soap & Water Follow Up Care Please Follow Up With: Reuben Strickland MD When: as needed [phone] Test Results: Test results from this visit will be discussed in further detail at your follow-up appointment, if applicable. Discharge Plan Admission Attending Provider: Reuben Strickland Primary Care Provider: Vivek Cheng Chi Instructions Print Language: Tanzanian Discharge Orders/Prescriptions Prescriptions: No Action aspirin [Adult Low Dose Aspirin] 81 mg tablet,delayed release (DR/EC) 81 mg PO DAILY donepezil [Aricept] 5 mg tablet 5 mg PO QDAY ondansetron 8 mg tablet,disintegrating 8 mg PO Q8H PRN (Reason: nausea and vomiting) Qty: 30 0RF lidocaine-prilocaine 2.5-2.5 % cream 1 applic topical ONCE PRN (Reason: port access) 30 Days Qty: 30 2RF memantine 10 mg tablet 10 mg PO BID Referrals / Follow Up: Vivek Cheng Chi, MD [Primary Care Provider, Geriatrics] Disposition Disposition (needs filled in before D/C Order can be placed): Home, Self Care
--- NOTE | 2025-08-18 13:17 | PCM.POST.ANE ---
Anesthesia: Postop Eval I Current Vital Signs Temperature: 97.2 F Pulse Rate: 52 Blood Pressure: 99/55 Respiratory Rate: 16 Pulse Ox: 100 Oxygen Delivery Method: Room Air Assessment Airway patent: Yes Spontaneous unlabored respirations: Yes Mental status: Awake and Calm nausea: No Vomiting: No Anesthesia Complication: No Fluid Hydration Crystalloid volume administer (ml): 500 Total IV fluid infused: 500 Progress Note Anesthesia document: Postop Eval 1 completed: Yes
--- NOTE | 2025-08-18 13:22 | RAD_ITS ---
PROCEDURE: CXR FOR LINE PLACEMENT 08/18/2025 REASON FOR EXAM: LINE PLACEMENT TECHNIQUE: Procedure Code: [id number] Modality: DX Procedure: CXR FOR LINE PLACEMENT FINDINGS: The lungs are grossly clear. The cardiac silhouette is at the upper limit of normal in size. A right-sided MediPort is in place with its tip in the SVC. No sizable pneumothorax is identified. Moderate dextro convex thoracic scoliosis. Hyperdensities in the mediastinum could represent calcified lymph nodes. RAD/CXR for Line Placement IMPRESSION: As above. Reading Location: [id number]
--- NOTE | 2025-08-18 15:05 | POSTOPAN2_ITS ---
Anesthesia Postop Eval I Sum Postop Eval Completion status Anesthesia document: Postop Eval 1 completed: Yes Anesthesia Postop Eval I Summary Anesthesia Postop Eval I Summary: Anesthesia Postop Eval I: Assessment Summary Airway patent Yes 08/18/25 13:17 LEARNING AND DEVELOPMENT COORDINATOR.SKOBY Spontaneous unlabored Yes 08/18/25 13:17 LEARNING AND DEVELOPMENT COORDINATOR.MACOBChristy respirations Mental status Awake,Calm 08/18/25 13:17 LEARNING AND DEVELOPMENT COORDINATOR.SKOBY nausea No 08/18/25 13:17 LEARNING AND DEVELOPMENT COORDINATOR.SKOBY Vomiting No 08/18/25 13:17 LEARNING AND DEVELOPMENT COORDINATOR.SKOBY Anesthesia Postop Eval I: Fluid Summary Crystalloid volume administer 500 08/18/25 13:17 LEARNING AND DEVELOPMENT COORDINATOR.SKOBY (ml) Colloids volume administered ( ml) Blood Product volume administered (ml) Total IV fluid infused 500 08/18/25 13:17 LEARNING AND DEVELOPMENT COORDINATOR.MACOBChristy Anesthesia Postop Eval I: Summary Notes Anesthesia Complication No 08/18/25 13:17 LEARNING AND DEVELOPMENT COORDINATOR.MACOBChristy Anesthesia Complication Comment: Post-operative progress note Anesthesia: Postop Eval II Evaluation Mental status: Awake and Calm Pain Level: 1 nausea: No Vomiting: No Complications Anesthesia Complication: No
--- NOTE | 2025-08-18 15:05 | PCM.POSTANE2 ---
Anesthesia Postop Eval I Sum Postop Eval Completion status Anesthesia document: Postop Eval 1 completed: Yes Anesthesia Postop Eval I Summary Anesthesia Postop Eval I Summary: Anesthesia Postop Eval I: Assessment Summary Airway patent Yes 08/18/25 13:17 CEMENT FINISHER HELPER.SKOBY Spontaneous unlabored Yes 08/18/25 13:17 CEMENT FINISHER HELPER.MACOBChristy respirations Mental status Awake,Calm 08/18/25 13:17 CEMENT FINISHER HELPER.SKOBY nausea No 08/18/25 13:17 CEMENT FINISHER HELPER.SKOBY Vomiting No 08/18/25 13:17 CEMENT FINISHER HELPER.SKOBY Anesthesia Postop Eval I: Fluid Summary Crystalloid volume administer 500 08/18/25 13:17 CEMENT FINISHER HELPER.SKOBY (ml) Colloids volume administered ( ml) Blood Product volume administered (ml) Total IV fluid infused 500 08/18/25 13:17 CEMENT FINISHER HELPER.MACOBChristy Anesthesia Postop Eval I: Summary Notes Anesthesia Complication No 08/18/25 13:17 CEMENT FINISHER HELPER.MACOBChristy Anesthesia Complication Comment: Post-operative progress note Anesthesia: Postop Eval II Evaluation Mental status: Awake and Calm Pain Level: 1 nausea: No Vomiting: No Complications Anesthesia Complication: No
== END 2025-08-18 14:14 | disposition home or self-care (01) ==
LOC: SDC 11:25 → AC 11:26
PROVIDERS: PCP Family Medicine Geriatric Medicine; Referring Provider Surgery; Visit Provider Surgery
PROC: (CPT 36561; principal; 2025-08-18 12:45)
DX: Z45.2 Encounter for adjustment and management of vascular access device (principal); C20 Malignant neoplasm of rectum; Z80.0 Family history of malignant neoplasm of digestive organs
CPT/HCPCS: 36561; 00532; 71045; 77001; C1788; J2405